=== PATIENT | male | born 1960 | race Caucasian/White ===

== ENCOUNTER 2018-11-16 14:07 | Inpatient (IN) | payer OTHER ==
[2018-11-16] MEDS ORDERED: HEPARIN SODIUM,PORCINE 5,000 UNIT/ML 1 ML VIAL IV PRN (15:05)
[2018-11-16] MEDS ORDERED: HEPARIN SOD,PORK IN 0.45% NACL 25,000 UNIT in 0.45% NACL 1 250ML.BAG IV SCH (15:15)
--- NOTE | 2018-11-16 15:38 | ED ---
General Adult HPI - General Chief complaint: Chest Pain Stated complaint: Chest Pain Time Seen by Provider: 11/16/18 14:40 Source: patient Mode of arrival: EMS Limitations: no limitations - History of Present Illness Initial comments: Dictation was produced using [employer] dictation software. please excuse any grammatical, word or spelling errors. Chief Complaint: Patient is a 58-year-old male transferred from [facility] for NSTEMI. History of Present Illness: Patient is a 58-year-old male. Patient denies any medical history. Patient is transferred from [facility] for an STEMI. Patient had typical chest pain prior to going to the ER. He states it was a pressure-like sensation over his anterior chest. Denied any radiation to the shoulders or neck. Also suggested freezes. Patient has any cardiac history. He went to the emergency department to be evaluated. Labs and neck surgery obtained. Patient had a elevated troponin. EKG did not show any findings to suggest STEMI. Patient denies any shortness of breath. Patient denies any symptoms at this time. The ROS documented in this emergency department record has been reviewed and confirmed by me. Those systems with pertinent positive or negative responses have been documented in the HPI. All other systems are other negative and/or noncontributory. PHYSICAL EXAM: General Impression: Alert and oriented x3, not in acute distress HEENT: Normocephalic atraumatic, extra-ocular movements intact, pupils equal and reactive to light bilaterally, mucous membranes moist. Cardiovascular: Heart regular rate and rhythm, S1&S2 audible, no murmurs, rubs or gallops Chest: Lungs clear to auscultation bilaterally, no rhonchi, no wheeze, no rales Abdomen: Bowel sounds present, abdomen soft, non-tender, non-distended, no organomegaly Musculoskeletal: Pulses present and equal in all extremities, no peripheral edema Motor: Power 5/5 bilaterally, no focal deficits noted Neurological: CN II-XII grossly intact, no focal motor or sensory deficits noted Skin: Intact with no visualized rashes Psych: Normal affect and mood ED course: Old male presents with an STEMI. Labs and chart were reviewed from transferring facility. CBC, coag panel, metabolic panel is unremarkable. Troponin was elevated at 0.25. Chest x-ray is unremarkable. Repeat EKG was performed here showing a ventricular rate of 80, sinus rhythm, VT interval 154, QRS 86, QTC 456. Patient was continued on heparin. Patient did receive aspirin at transferring hospital. No signs of ischemia or MT at this time. Is hemodynamically stable at this time. He is asymptomatic. Patient be admitted with cardiology consultation. - Related Data Home Medications Medication Instructions Recorded Confirmed Losartan/Hydrochlorothiazide 1 tab PO DAILY 11/16/18 11/16/18 [Losartan-Hctz 100-12.5 mg Tab] Allergies Allergy/AdvReac Type Severity Reaction Status Date / Time No Known Allergies Allergy Unverified 11/16/18 15:04 Review of Systems ROS Statement: Those systems with pertinent positive or pertinent negative responses have been documented in the HPI. ROS Other: All systems not noted in ROS Statement are negative. General Exam Limitations: no limitations Course Vital Signs 11/16/18 11/16/18 14:13 15:36 Temperature 98.1 F Pulse Rate 81 75 Respiratory 16 14 Rate Blood Pressure 127/82 124/78 O2 Sat by Pulse 96 Oximetry Disposition Clinical Impression: NSTEMI (non-ST elevated myocardial infarction) Disposition: ADMITTED IP TO THIS HOSP Condition: Fair Referrals: Cherri Land DO [Primary Care Provider] - 1-2 days Decision Time: 15:38
[2018-11-16] MEDS ORDERED: NITROGLYCERIN SL TABS 0.4 MG TAB SUBLINGUAL PRN (15:42)
[2018-11-16] MEDS: METOPROLOL TARTRATE 25 MG TAB PO SCH (20:05)
[2018-11-17 00:50] LABS: Creatine Kinase MB 14.6 ng/mL (0.0-2.4)
[2018-11-17 00:53] LABS: Troponin I 4.25 ng/mL (0.000-0.034)
[2018-11-17 06:19] LABS: Basophils % (A) 0 %; Eosinophils # (A) 0.1 k/uL (0-0.7); Eosinophils % (A) 5 %; HCT 29.8 % (39.0-53.0); HGB 9.1 gm/dL (13.0-17.5); Hypochromasia Slight; Lymphocytes % (A) 42 %; MCH 30.3 pg (25.0-35.0); MCHC 30.4 g/dL (31.0-37.0); MCV 99.5 fL (80.0-100.0); Macrocytosis Slight; Monocytes # (A) 0.2 k/uL (0-1.0); Monocytes % (A) 9 %; Neutrophils % (A) 40 %; Platelet Count 259 k/uL (150-450); RBC 2.99 m/uL (4.30-5.90); RDW 15.9 % (11.5-15.5); WBC 2.4 k/uL (3.8-10.6)
[2018-11-17 06:20] LABS: Cholesterol 119 mg/dL (<200); HDL Cholesterol 40 mg/dL (40-60); LDL Cholesterol,Calculated 62 mg/dL (0-99); Triglycerides 84 mg/dL (<150)
[2018-11-17 06:21] LABS: ALT 26 U/L (21-72); AST 32 U/L (17-59); Albumin 3.2 g/dL (3.5-5.0); Alkaline Phosphatase 90 U/L (38-126); Anion Gap 5 mmol/L; Blood Urea Nitrogen 8 mg/dL (9-20); Calcium 9.3 mg/dL (8.4-10.2); Carbon Dioxide 26 mmol/L (22-30); Chloride 106 mmol/L (98-107); Glucose 95 mg/dL (74-99); Potassium 4.2 mmol/L (3.5-5.1); Sodium 137 mmol/L (137-145); Total Bilirubin 0.4 mg/dL (0.2-1.3); Total Protein 5.8 g/dL (6.3-8.2)
[2018-11-17 06:41] LABS: Creatine Kinase MB 10.5 ng/mL (0.0-2.4)
[2018-11-17 06:42] LABS: Troponin I 2.37 ng/mL (0.000-0.034)
--- NOTE | 2018-11-17 07:58 | P.CRDCN ---
History of Present Illness Consult date: 11/17/18 Requesting physician: Edy Santana Consult reason: non-Q-wave [place] Chief complaint: Chest pain History of present illness: This is a pleasant 58-year-old gentleman with history of hypertension , family history of premature coronary artery disease in his father who had a myocardial infarction in his 50s, nicotine dependence, presented to her [facility] hospital with symptoms of chest discomfort. According to the patient he woke up around 4:30 AM to get ready for work, states that he had midsternal chest pain, he denies any associated diaphoresis, no shortness of breath or nausea. He states that he did go to work, however the symptoms progressively got worse and for this reason he went to [facility] for further evaluation and treatment. EKG on presentation here showed a normal sinus rhythm with no acute changes. Chest x-ray did not reveal any acute process. Laboratory data performed at [facility] was reviewed, white blood cell count 3.2, hemoglobin 9.7, platelet count 311. Sodium 135, potassium 3.9, chloride 101, BUN 10 and creatinine 0.6 AST ALT are normal, magnesium 1.9. Initial troponin performed [facility] came back to be 0.25 BNP level was 66. EKG performed on arrival here showed a normal sinus rhythm with occasional PVCs, and subsequent EKG performed this morning showed normal sinus rhythm with nonspecific ST-T wave changes noted in the inferior leads. Blood pressure 127/80, heart rate in the 80s, 96% on room air. White blood cell count 2.4, hemoglobin 9.1, platelet count 259. Sodium 137, potassium 4.2, BUN 8 and creatinine 0.5. Troponins on arrival here 3.4, 4.2 and 2.3. Cholesterol 119, LDL 62, HDL 40, triglycerides 84. At the time of my examination this morning patient is currently chest pain-free. He is on a full aspirin along with IV heparin and metoprolol. Past Medical History Past Medical History: Hyperlipidemia, Hypertension History of Any Multi-Drug Resistant Organisms: None Reported Additional Past Surgical History / Comment(s): vasectomy, mt cataracats removed -lens implants, rt cheek cyst removed x2 Past Anesthesia/Blood Transfusion Reactions: No Reported Reaction Additional Past Anesthesia/Blood Transfusion Reaction / Comment(s): has never recieved any blood Smoking Status: Current every day smoker - Past Family History Mother Additional Family Medical History / Comment(s): from complications from pne Father Family Medical History: Coronary Artery Disease (CAD), Myocardial Infarction ([place] ) Additional Family Medical History / Comment(s): triple vessel cabg Medications and Allergies Home Medications Medication Instructions Recorded Confirmed Type Losartan/Hydrochlorothiazide 1 tab PO DAILY 11/16/18 11/16/18 History [Losartan-Hctz 100-12.5 mg Tab] Allergies Allergy/AdvReac Type Severity Reaction Status Date / Time No Known Allergies Allergy Unverified 11/16/18 15:04 Physical Exam Vitals: Vital Signs Temp Pulse Pulse Resp BP BP Pulse Ox 11/17/18 03:53 97.3 F L 74 15 113/60 98 11/17/18 00:00 97.4 F L 66 16 122/62 100 11/16/18 20:00 97.1 F L 73 17 110/61 96 11/16/18 18:28 98.1 F 68 20 134/77 96 11/16/18 18:02 80 16 121/66 11/16/18 15:42 96 11/16/18 15:36 75 14 124/78 96 11/16/18 14:13 98.1 F 81 16 127/82 Intake and Output 11/16/18 11/17/18 11/17/18 22:59 06:59 14:59 Intake Total 17.6 629.511 Balance 17.6 629.511 Intake: IV 10 20 Invasive Line 1 10 20 Intake, IV Titration 7.6 129.511 Amount Heparin Sod,Pork in 0.45% 7.6 129.511 NaCl 25,000 unit In 0.45 % NaCl 1 250ml.bag @ 12 UNITS/KG/HR 7.89 mls/hr IV .Q24H [facility] Rx#: [id number] Oral 480 Other: Voiding Method Toilet Toilet # Voids 2 Weight 60.4 kg PHYSICAL EXAMINATION: GENERAL: 58-year-old gentleman in no acute distress at the time of my examination HEENT: Head is atraumatic, normocephalic. Pupils equal, round. Sclera anicteric. Conjunctiva are clear. Mucous membranes of the mouth are moist. Neck is supple. There is no elevated jugular venous pressure. No carotid bruit is heard. HEART EXAMINATION: Heart S1, S2 normal. No murmur or gallop heard. CHEST EXAMINATION: Lungs reveal scattered wheezing throughout ABDOMEN: Soft, nontender. Bowel sounds are heard. No organomegaly noted. EXTREMITIES: 2+ peripheral pulses with no evidence of peripheral edema and no calf tenderness noted. NEUROLOGIC patient is awake, alert and oriented 3 . . Results 11/17/18 05:47 11/17/18 05:47 Cardiac Enzymes 11/16/18 11/16/18 11/17/18 Range/Units 18:26 23:50 05:47 AST (17-59) U/L CK-MB (CK-2) 14.6 H 10.5 H (0.0-2.4) ng/mL Troponin I 3.470 H* 4.250 H* 2.370 H* (0.000-0.034) ng/mL 11/17/18 Range/Units 05:47 AST 32 (17-59) U/L CK-MB (CK-2) (0.0-2.4) ng/mL Troponin I (0.000-0.034) ng/mL Coagulation 11/16/18 11/17/18 Range/Units 22:35 05:47 APTT 31.7 H 34.6 H (22.0-30.0) sec Lipids 11/17/18 Range/Units 05:47 Triglycerides 84 (<150) mg/dL Cholesterol 119 (<200) mg/dL HDL Cholesterol 40 (40-60) mg/dL CBC 11/17/18 Range/Units 05:47 WBC 2.4 L (3.8-10.6) k/uL RBC 2.99 L (4.30-5.90) m/uL Hgb 9.1 L (13.0-17.5) gm/dL Hct 29.8 L (39.0-53.0) % Plt Count 259 (150-450) k/uL Comprehensive Metabolic Panel 11/17/18 Range/Units 05:47 Sodium 137 (137-145) mmol/L Potassium 4.2 (3.5-5.1) mmol/L Chloride 106 (98-107) mmol/L Carbon Dioxide 26 (22-30) mmol/L BUN 8 L (9-20) mg/dL Creatinine 0.59 L (0.66-1.25) mg/dL Glucose 95 (74-99) mg/dL Calcium 9.3 (8.4-10.2) mg/dL AST 32 (17-59) U/L ALT 26 (21-72) U/L Alkaline Phosphatase 90 (38-126) U/L Total Protein 5.8 L (6.3-8.2) g/dL Albumin 3.2 L (3.5-5.0) g/dL Current Medications Generic Name Dose Route Start Last Admin Trade Name Chun PRN Reason Stop Dose Admin Aspirin 325 mg 11/17/18 09:00 Aspirin PO DAILY [facility] Heparin Sodium (Porcine) 0 unit 11/16/18 15:05 Heparin IV PER PROTOCOL PRN Low PTT Protocol Heparin Sodium/Sodium Chloride 250 mls @ 7.89 mls/hr 11/16/18 15:15 11/17/18 06:52 25,000 unit/ Sodium Chloride IV 18 units/kg/hr .Q24H [facility] 11.83 mls/hr Titration Protocol 12 UNITS/KG/HR Metoprolol Tartrate 25 mg 11/16/18 21:00 11/16/18 20:05 Lopressor PO 25 mg BID [facility] Administration Nitroglycerin 0.4 mg 11/16/18 15:42 Nitrostat SUBLINGUAL Q5M PRN Chest Pain Intake and Output 11/16/18 11/17/18 11/17/18 22:59 06:59 14:59 Intake Total 17.6 629.511 Balance 17.6 629.511 Intake: IV 10 20 Invasive Line 1 10 20 Intake, IV Titration 7.6 129.511 Amount Heparin Sod,Pork in 0.45% 7.6 129.511 NaCl 25,000 unit In 0.45 % NaCl 1 250ml.bag @ 12 UNITS/KG/HR 7.89 mls/hr IV .Q24H [facility] Rx#: [id number] Oral 480 Other: Voiding Method Toilet Toilet # Voids 2 Weight 60.4 kg 11/17/18 05:47 11/17/18 05:47 EKG Interpretations (text) EKG shows normal sinus rhythm with no acute changes. Assessment and Plan Plan: Assessment and plan #1 non-ST elevation GA #2 hypertension #3 nicotine dependence #4 family history of premature coronary artery disease in his father Plan We will obtain a stat echocardiogram with Doppler study. Continue with IV heparin. We will start the patient on Lipitor. He has been advised that he will need to undergo cardiac catheterization for more definitive diagnosis. The risks and benefits were explained to the patient in detail and he is willing to proceed. Further recommendations will be based on these findings and the patient's clinical course. DNP note has been reviewed, I agree with a documented findings and plan of care. Patient was seen and examined.
[2018-11-17] MEDS: METOPROLOL TARTRATE 25 MG TAB PO SCH ×2 (08:29→20:59)
[2018-11-17] MEDS: ATORVASTATIN 80 MG TAB PO SCH (08:29)
[2018-11-17] MEDS ORDERED: ASPIRIN 325 MG TAB PO SCH (09:00)
--- NOTE | 2018-11-17 12:57 | ECHOF ---
Referral Reason:assess lvf MEASUREMENTS -------- HEIGHT: 170.2 cm WEIGHT: 60.3 kg BP: RVIDd: 3.1 cm (< 3.3) IVSd: 1.0 cm (0.6 - 1.1) LVIDd: 4.0 cm (3.9 - 5.3) LVPWd: 1.0 cm (0.6 - 1.1) IVSs: 1.4 cm LVIDs: 2.9 cm LVPWs: 1.5 cm LA Diam: 3.5 cm (2.7 - 3.8) LAESV Index (A-L): 23.10 ml/m Ao Diam: 3.5 cm (2.0 - 3.7) AV Cusp: 1.5 cm (1.5 - 2.6) LA Diam: 3.7 cm (2.7 - 3.8) MV EXCURSION: 23.254 mm (> 18.000) MV EF SLOPE: 117 mm/s (70 - 150) EPSS: 0.3 cm MV E Rey: 0.68 m/s MV DecT: 213 ms MV A Rey: 0.87 m/s MV E/A Ratio: 0.78 RAP: 5.00 mmHg RVSP: 19.13 mmHg FINDINGS -------- Sinus rhythm. This was a technically good study. LV size, wall thickness and systolic function are normal, with an EF greater than 55%. The left tadeo tricular size is normal. The right ventricle is normal in size. The left atrial size is normal. Normal LA size by volume 22+/-6 ml/m2. The right atrial size is normal. There is mild aortic valve sclerosis. There is no evidence of aortic regurgitation. Mild mitral annular calcification present. Mild mitral regurgitation is present. Mild tricuspid regurgitation present. There is no evidence of pulmonary hypertension. The right v entricular systolic pressure, as measured by Doppler, is 19.13mmHg. There is no pulmonic regurgitation present. The aortic root size is normal. There is no pericardial effusion. CONCLUSIONS -------- 1. LV size, wall thickness and systolic function are normal, with an EF greater than 55%. 2. The left ventricular size is normal. 3. The right ventricle is normal in size. 4. The left atrial size is normal. 5. Normal LA size by volume 22+/-6 ml/m2. 6. The right atrial size is normal. 7. There is mild aortic valve sclerosis. 8. Mild mitral annular calcification present. 9. Mild tricuspid regurgitation present. 10. There is no evidence of pulmonary hypertension. 11. The right ventricular systolic pressure, as measured by Doppler, is 19.13mmHg. 12. There is no pulmonic regurgitation present. 13. The aortic root size is normal. 14. There is no pericardial effusion. SHOW HORSE DRIVER: Merlyn Box RDCS
[2018-11-17] MEDS ORDERED: fentaNYL (PF) 50 MCG/ML 2 ML AMP ONE (13:11)
[2018-11-17] MEDS ORDERED: VERAPAMIL 2.5 MG/ML 2 ML AMP ONE (13:11)
[2018-11-17] MEDS ORDERED: IV FLUID CONTINUATION 1,000 ML IV ONE (13:25)
[2018-11-17] MEDS ORDERED: fentaNYL (PF) 50 MCG/ML 2 ML AMP IV ONE (13:50)
[2018-11-17] MEDS ORDERED: LIDOCAINE 2% SYG (PF) 100 MG/5 ML MISCELLANE ONE (13:52)
[2018-11-17] MEDS ORDERED: VERAPAMIL SYRINGE (5 MG/10 ML) INTRAARTER ONE (13:54)
--- NOTE | 2018-11-17 13:56 | P.HPIM ---
History of Present Illness 58-year-old gentleman came in with compensative chest pain without any associated diaphoresis or shortness of breath patient just pain is midsternal area. Patient was seen in [facility] subsequently transferred here patient is found to have elevated troponins present elevated troponins are above 3 now. Patient will go for cardiac catheterization patient has some nonspecific ST-T wave changes in the inferior leads. Patient denied any fever chills Patient does smoke. Chest x-ray did not show any pneumonic process. No pulmonary edema on the chest x-ray. Review of Systems REVIEW OF SYSTEMS: CONSTITUTIONAL: No fever, no malaise, no fatigue. HEENT: No recent visual problems or hearing problems. Denied any sore throat. CARDIOVASCULAR: No orthopnea, PND, no palpitations, no syncope. PULMONARY: No shortness of breath, no cough, no hemoptysis. GASTROINTESTINAL: No diarrhea, no nausea, no vomiting, no abdominal pain. NEUROLOGICAL: No headaches, no weakness, no numbness. HEMATOLOGICAL: Denies any bleeding or petechiae. GENITOURINARY: Denies any burning micturition, frequency, or urgency. MUSCULOSKELETAL/RHEUMATOLOGICAL: Denies any joint pain, swelling, or any muscle pain. ENDOCRINE: Denies any polyuria or polydipsia. The rest of the 14-point review of systems is negative. Past Medical History Past Medical History: Hyperlipidemia, Hypertension History of Any Multi-Drug Resistant Organisms: None Reported Additional Past Surgical History / Comment(s): vasectomy, mt cataracats removed -lens implants, rt cheek cyst removed x2 Past Anesthesia/Blood Transfusion Reactions: No Reported Reaction Additional Past Anesthesia/Blood Transfusion Reaction / Comment(s): has never recieved any blood Smoking Status: Current every day smoker - Past Family History Mother Additional Family Medical History / Comment(s): from complications from pne Father Family Medical History: Coronary Artery Disease (CAD), Myocardial Infarction ([place] ) Additional Family Medical History / Comment(s): triple vessel cabg Medications and Allergies Home Medications Medication Instructions Recorded Confirmed Type Losartan/Hydrochlorothiazide 1 tab PO DAILY 11/16/18 11/16/18 History [Losartan-Hctz 100-12.5 mg Tab] Allergies Allergy/AdvReac Type Severity Reaction Status Date / Time No Known Allergies Allergy Unverified 11/16/18 15:04 Physical Exam Vitals: Vital Signs Temp Pulse Pulse Resp BP BP Pulse Ox 11/17/18 10:55 98.0 F 64 18 121/61 96 11/17/18 08:00 97.9 F 68 18 131/71 95 11/17/18 03:53 97.3 F L 74 15 113/60 98 11/17/18 00:00 97.4 F L 66 16 122/62 100 11/16/18 20:00 97.1 F L 73 17 110/61 96 11/16/18 18:28 98.1 F 68 20 134/77 96 11/16/18 18:02 80 16 121/66 11/16/18 15:42 96 11/16/18 15:36 75 14 124/78 96 11/16/18 14:13 98.1 F 81 16 127/82 Intake and Output 11/16/18 11/17/18 11/17/18 22:59 06:59 14:59 Intake Total 17.6 629.511 20 Balance 17.6 629.511 20 Intake: IV 10 20 Invasive Line 1 10 20 Intake, IV Titration 7.6 129.511 Amount Heparin Sod,Pork in 0.45% 7.6 129.511 NaCl 25,000 unit In 0.45 % NaCl 1 250ml.bag @ 12 UNITS/KG/HR 7.89 mls/hr IV .Q24H [facility] Rx#: [id number] Oral 480 20 Other: Voiding Method Toilet Toilet # Voids 2 1 Weight 60.4 kg PHYSICAL EXAMINATION: GENERAL: The patient is alert and oriented x3, not in any acute distress. Well developed, well nourished. HEENT: Pupils are round and equally reacting to light. EOMI. No scleral icterus. No conjunctival pallor. Normocephalic, atraumatic. No pharyngeal erythema. No thyromegaly. CARDIOVASCULAR: S1 and S2 present. No murmurs, rubs, or gallops. PULMONARY: Chest is clear to auscultation, no wheezing or crackles. ABDOMEN: Soft, nontender, nondistended, normoactive bowel sounds. No palpable organomegaly. MUSCULOSKELETAL: No joint swelling or deformity. EXTREMITIES: No cyanosis, clubbing, or pedal edema. NEUROLOGICAL: Gross neurological examination did not reveal any focal deficits. SKIN: No rashes. Results CBC & Chem 7: 11/17/18 05:47 11/17/18 05:47 Labs: Abnormal Lab Results - Last 24 Hours (Table) 11/16/18 11/16/18 11/16/18 Range/Units 18:26 22:35 23:50 WBC (3.8-10.6) k/uL RBC (4.30-5.90) m/uL Hgb (13.0-17.5) gm/dL Hct (39.0-53.0) % MCHC (31.0-37.0) g/dL RDW (11.5-15.5) % Neutrophils # (1.3-7.7) k/uL APTT 31.7 H (22.0-30.0) sec BUN (9-20) mg/dL Creatinine (0.66-1.25) mg/dL Total Creatine Kinase 223 H (55-170) U/L CK-MB (CK-2) 14.6 H (0.0-2.4) ng/mL Troponin I 3.470 H* 4.250 H* (0.000-0.034) ng/mL Total Protein (6.3-8.2) g/dL Albumin (3.5-5.0) g/dL 11/17/18 11/17/18 11/17/18 Range/Units 05:47 05:47 05:47 WBC 2.4 L (3.8-10.6) k/uL RBC 2.99 L (4.30-5.90) m/uL Hgb 9.1 L (13.0-17.5) gm/dL Hct 29.8 L (39.0-53.0) % MCHC 30.4 L (31.0-37.0) g/dL RDW 15.9 H (11.5-15.5) % Neutrophils # 1.0 L (1.3-7.7) k/uL APTT 34.6 H (22.0-30.0) sec BUN (9-20) mg/dL Creatinine (0.66-1.25) mg/dL Total Creatine Kinase 195 H (55-170) U/L CK-MB (CK-2) 10.5 H (0.0-2.4) ng/mL Troponin I 2.370 H* (0.000-0.034) ng/mL Total Protein (6.3-8.2) g/dL Albumin (3.5-5.0) g/dL 11/17/18 11/17/18 Range/Units 05:47 12:58 WBC (3.8-10.6) k/uL RBC (4.30-5.90) m/uL Hgb (13.0-17.5) gm/dL Hct (39.0-53.0) % MCHC (31.0-37.0) g/dL RDW (11.5-15.5) % Neutrophils # (1.3-7.7) k/uL APTT 42.0 H (22.0-30.0) sec BUN 8 L (9-20) mg/dL Creatinine 0.59 L (0.66-1.25) mg/dL Total Creatine Kinase (55-170) U/L CK-MB (CK-2) (0.0-2.4) ng/mL Troponin I (0.000-0.034) ng/mL Total Protein 5.8 L (6.3-8.2) g/dL Albumin 3.2 L (3.5-5.0) g/dL Thrombosis Risk Factor Assmnt - Choose All That Apply Any of the Below Risk Factors Present?: No Other Risk Factors: No Thrombosis Risk Factor Assessment Level: Very Low Risk Assessment and Plan Plan: -Acute non-ST elevation myocardial infarction: Patient is on IV heparin antiplatelet therapy beta jonh and patient will undergo cardiac catheterization today patient is also on statin. Echocardiac showed normal ejection fraction, clinically no evidence of CHF at this time -Hypertension: Holding off antidepressants medications because of normal blood pressures -Nicotine dependence: Counseling was provided
[2018-11-17] MEDS ORDERED: IOPAMIDOL-370 100ML BTL INJ ONE (14:08)
[2018-11-17] MEDS ORDERED: RX INFO: IV CONTRAST WAS GIVEN 1 EACH MISC MISCELLANE PRN (14:20)
[2018-11-17] MEDS ORDERED: SODIUM CHLORIDE 0.9% 1,000 ML IV SCH (14:30)
[2018-11-17] MEDS ORDERED: MD COMMUNICATION TO PHARMACY 1 EACH MISC PO ONE ×2 (14:44)
[2018-11-17 15:06] LABS: INR 1.1 (<1.2); Prothrombin Time 11.8 sec (9.0-12.0)
[2018-11-17 15:19] LABS: Glucose,Whole Blood 96 mg/dL (75-99)
[2018-11-17] MEDS: HEPARIN SOD,PORK IN 0.45% NACL 25,000 UNIT in 0.45% NACL 1 250ML.BAG IV SCH (15:22)
--- NOTE | 2018-11-17 15:46 | CC ---
CARDIAC CATHETERIZATION REPORT Mr. Acosta is a 58-year-old male known history of chronic tobacco use and hypertension, who presented to [facility] with symptoms of chest discomfort and evidence of non ST-segment elevation myocardial infarction. In view of that, recommendation made regarding cardiac catheterization. The procedures as well as risks and complications were discussed with the patient who is in full understanding and agreement. DESCRIPTION OF PROCEDURE: Patient was brought to pathology laboratory director in a fasting state after receiving fentanyl and Benadryl and achieving moderate conscious sedated state. Using Xylocaine anesthesia in the Seldinger technique a 6-Egyptian sheath was introduced in the right radial artery. Selective right and left coronary angiography was performed using 5-Egyptian 3 and half bend right and left Nunu catheter. Multiple views of the coronary artery including hemiaxial views obtained. Following that, 5-Egyptian tight pigtail catheter was introduced in the left ventricle and a 30 degree ANGELA view of the left ventricle was obtained. Following that, catheter and sheath were removed. Hemostasis was obtained with deployment of TR band. There was no immediate complication. Patient was returned to his room in stable condition. Of note, the patient received 3000 units of intravenous heparin as well as intra-arterial verapamil. FINDINGS: FLUOROSCOPY: There was severe calcification involving all the coronary arteries. SELECTIVE CORONARY ANGIOGRAM: 1. LEFT MAIN: This is a short size vessel bifurcating into left circumflex, left anterior descending artery, left main coronary artery has a 95% stenosis distally at the bifurcation. 2. LEFT ANTERIOR DESCENDING ARTERY: This is a large-sized vessel reaching toward the apex with a wraparound apex segment giving rise to a diagonal branch proximally of moderate caliber. The left anterior descending artery proximally has a plaque of 95% extending from the left main. The rest of the vessel has no high-grade stenosis. 3. LEFT CIRCUMFLEX: This is a nondominant vessel giving rise to one obtuse marginal branch proximally. The left circumflex in the ostium has 99% stenosis. There is another plaque in the obtuse marginal branch of about 80-90 percent. 4. RIGHT CORONARY ARTERY: This is a large dominant vessel bifurcating distally into the PDA posterolateral segment and branches. The right coronary artery proximally has a 99% stenosis, has diffuse intimal disease throughout the course of the vessel without any evidence of high-grade stenosis. LEFT VENTRICULOGRAM: Left ventriculogram was performed in 30 degree ANGELA view and revealed normal left ventricular size with mild apical hypokinesis ejection fraction 50%. There was no significant mitral regurgitation. HEMODYNAMICS: There was no gradient across the aortic valve. The left ventricle end-diastolic pressure was 10 mmHg. CONCLUSION: 1. Calcified coronary arteries. 2. 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 3. Normal left ventricular size systolic function. RECOMMENDATIONS: At this time, I would recommend to proceed with evaluation for urgent coronary artery bypass grafting in view of his anatomy and his presentation. Those findings and recommendations were discussed with the patient and his family who are in full understanding and agreement. Duration of procedure is 20 minutes. MMODL / IJN: [id number] /
--- NOTE | 2018-11-17 16:46 | P.GSCN ---
<Urmila Jones - Last Filed: 11/17/18 16:21> History of Present Illness Consult date: 11/17/18 Reason for Consult: Triple-vessel coronary artery disease with left main disease, surgical revascularization recommendations Requesting physician: Harsha Dominguez History of present illness: This is a 58-year-old active gentleman who follows with Dr. Cherri Land on an outpatient basis. He has a previous medical history of hypertension, hyperlipidemia, tobacco dependence as he has smoked 1 pack a day for the previous 40 years, and family history of early coronary artery disease with his father having open heart surgery in his 50s. Apparently as he was getting ready for work and he began to experience sharp midsternal chest pain without radiation. He had no associated shortness of breath, diaphoresis, nausea, dizziness or any other symptoms. His exertional chest pain was eventually relieved with rest. He stated he never had this type of pain before. He presented to [facility] for evaluation and treatment. EKG showed normal sinus rhythm without acute ischemic changes. Troponin was mildly elevated at 0.25, patient was ruled in for non-STEMI and transported to [facility] for further management. Subsequent EKG demonstrated normal sinus rhythm with nonspecific STT wave changes in the inferior leads. Troponins continued to elevate with max troponin 4.2. Patient has denied chest pain since hospitalization. Dr. Dominguez from cardiology was consulted. The patient had a transthoracic echocardiogram demonstrating normal left ventricular function with an EF 55%, mild mitral annular calcification and mild tricuspid regurgitation with no other valvular pathology. He was recommended to undergo heart catheterization which was completed this afternoon by Dr. Dominguez and which demonstrated left main with 95% distal stenosis at the bifurcation, proximal LAD stenosis 95% extending from the left main, ostial circumflex stenosis 99%, obtuse marginal branch with 80-90% stenosis, and proximal RCA stenosis 99%. LV gram demonstrated normal LV size with ejection fraction of 50% , no gradient across the aortic valve and no mitral regurgitation. Due to the nature of the patient's disease Dr. Cast from cardiothoracic surgery was consulted urgently. Review of Systems Review of systems was completed and was negative except as noted - Cardiovascular Reports chest pain Past Medical History Past Medical History: Hyperlipidemia, Hypertension History of Any Multi-Drug Resistant Organisms: None Reported Additional Past Surgical History / Comment(s): vasectomy, mt cataracats removed -lens implants, rt cheek cyst removed x2 Past Anesthesia/Blood Transfusion Reactions: No Reported Reaction Additional Past Anesthesia/Blood Transfusion Reaction / Comm: has never recieved any blood Past Psychological History: No Psychological Hx Reported Smoking Status: Current every day smoker Past Alcohol Use History: Rare Past Drug Use History: None Reported - Past Family History Mother Additional Family Medical History / Comment(s): from complications from pne Father Family Medical History: Coronary Artery Disease (CAD), Myocardial Infarction ([place] ) Additional Family Medical History / Comment(s): triple vessel cabg Medications and Allergies Home Medications Medication Instructions Recorded Confirmed Type Losartan/Hydrochlorothiazide 1 tab PO DAILY 11/16/18 11/16/18 History [Losartan-Hctz 100-12.5 mg Tab] Allergies Allergy/AdvReac Type Severity Reaction Status Date / Time No Known Allergies Allergy Unverified 11/16/18 15:04 Surgical - Exam Vital Signs Temp Pulse Resp BP 98.1 F 81 16 127/82 11/16/18 14:13 11/16/18 14:13 11/16/18 14:13 11/16/18 14:13 - General well developed, well nourished, no distress, no pain - Eyes PERRL, normal ocular movement - ENT no hearing loss - Neck no masses, no bruits, trachea midline - Respiratory Lungs sounds clear but diminished bilaterally. Respirations even, nonlabored. Currently on room air with oxygen saturation 94%. No chest wall deformities. - Cardiovascular S1, S2 present. Regular rate and rhythm, sinus rhythm on telemetry. Palpable peripheral pulses bilaterally. No edema present. No calf pain or tenderness noted. Negative left radial Robb's test. No varicosities noted. - Abdomen Abdomen: soft, non tender, bowel sounds - Genitourinary Deferred - Rectum Deferred - Integumentary Right radial heart catheterization site well approximated without drainage. T band in place. no rash, no growths - Neurologic normal coordination, normal sensation - Musculoskeletal normal posture - Psychiatric oriented to time, oriented to person, oriented to place, speech is normal, memory intact Results - Labs 11/17/18 05:47 11/17/18 05:47 Abnormal Lab Results - Last 24 Hours (Table) 11/16/18 11/16/18 11/16/18 Range/Units 18:26 22:35 23:50 WBC (3.8-10.6) k/uL RBC (4.30-5.90) m/uL Hgb (13.0-17.5) gm/dL Hct (39.0-53.0) % MCHC (31.0-37.0) g/dL RDW (11.5-15.5) % Neutrophils # (1.3-7.7) k/uL APTT 31.7 H (22.0-30.0) sec BUN (9-20) mg/dL Creatinine (0.66-1.25) mg/dL Total Creatine Kinase 223 H (55-170) U/L CK-MB (CK-2) 14.6 H (0.0-2.4) ng/mL Troponin I 3.470 H* 4.250 H* (0.000-0.034) ng/mL Total Protein (6.3-8.2) g/dL Albumin (3.5-5.0) g/dL 11/17/18 11/17/18 11/17/18 Range/Units 05:47 05:47 05:47 WBC 2.4 L (3.8-10.6) k/uL RBC 2.99 L (4.30-5.90) m/uL Hgb 9.1 L (13.0-17.5) gm/dL Hct 29.8 L (39.0-53.0) % MCHC 30.4 L (31.0-37.0) g/dL RDW 15.9 H (11.5-15.5) % Neutrophils # 1.0 L (1.3-7.7) k/uL APTT 34.6 H (22.0-30.0) sec BUN (9-20) mg/dL Creatinine (0.66-1.25) mg/dL Total Creatine Kinase 195 H (55-170) U/L CK-MB (CK-2) 10.5 H (0.0-2.4) ng/mL Troponin I 2.370 H* (0.000-0.034) ng/mL Total Protein (6.3-8.2) g/dL Albumin (3.5-5.0) g/dL 11/17/18 11/17/18 Range/Units 05:47 12:58 WBC (3.8-10.6) k/uL RBC (4.30-5.90) m/uL Hgb (13.0-17.5) gm/dL Hct (39.0-53.0) % MCHC (31.0-37.0) g/dL RDW (11.5-15.5) % Neutrophils # (1.3-7.7) k/uL APTT 42.0 H (22.0-30.0) sec BUN 8 L (9-20) mg/dL Creatinine 0.59 L (0.66-1.25) mg/dL Total Creatine Kinase (55-170) U/L CK-MB (CK-2) (0.0-2.4) ng/mL Troponin I (0.000-0.034) ng/mL Total Protein 5.8 L (6.3-8.2) g/dL Albumin 3.2 L (3.5-5.0) g/dL Diabetes panel 11/17/18 11/17/18 Range/Units 05:47 05:47 Sodium 137 (137-145) mmol/L Potassium 4.2 (3.5-5.1) mmol/L Chloride 106 (98-107) mmol/L Carbon Dioxide 26 (22-30) mmol/L BUN 8 L (9-20) mg/dL Creatinine 0.59 L (0.66-1.25) mg/dL Glucose 95 (74-99) mg/dL Calcium 9.3 (8.4-10.2) mg/dL AST 32 (17-59) U/L ALT 26 (21-72) U/L Alkaline Phosphatase 90 (38-126) U/L Total Protein 5.8 L (6.3-8.2) g/dL Albumin 3.2 L (3.5-5.0) g/dL Triglycerides 84 (<150) mg/dL HDL Cholesterol 40 (40-60) mg/dL Thyroid panel 11/17/18 Range/Units 05:47 TSH 1.650 (0.465-4.680) mIU/L Calcium panel 11/17/18 Range/Units 05:47 Calcium 9.3 (8.4-10.2) mg/dL Albumin 3.2 L (3.5-5.0) g/dL Pituitary panel 11/17/18 11/17/18 Range/Units 05:47 05:47 Sodium 137 (137-145) mmol/L Potassium 4.2 (3.5-5.1) mmol/L Chloride 106 (98-107) mmol/L Carbon Dioxide 26 (22-30) mmol/L BUN 8 L (9-20) mg/dL Creatinine 0.59 L (0.66-1.25) mg/dL Glucose 95 (74-99) mg/dL Calcium 9.3 (8.4-10.2) mg/dL TSH 1.650 (0.465-4.680) mIU/L Adrenal panel 11/17/18 Range/Units 05:47 Sodium 137 (137-145) mmol/L Potassium 4.2 (3.5-5.1) mmol/L Chloride 106 (98-107) mmol/L Carbon Dioxide 26 (22-30) mmol/L BUN 8 L (9-20) mg/dL Creatinine 0.59 L (0.66-1.25) mg/dL Glucose 95 (74-99) mg/dL Calcium 9.3 (8.4-10.2) mg/dL Total Bilirubin 0.4 (0.2-1.3) mg/dL AST 32 (17-59) U/L ALT 26 (21-72) U/L Alkaline Phosphatase 90 (38-126) U/L Total Protein 5.8 L (6.3-8.2) g/dL Albumin 3.2 L (3.5-5.0) g/dL - Imaging EKG: image reviewed Additional studies: Heart catheterization and echocardiogram results reviewed. Assessment and Plan (1) Hypertension Current Visit: Yes Status: Chronic Code(s): I10 - ESSENTIAL (PRIMARY) HYPERTENSION SNOMED Code(s): 30494651 (2) Hyperlipidemia Current Visit: Yes Status: Chronic Code(s): E78.5 - HYPERLIPIDEMIA, UNSPECIFIED SNOMED Code(s): 94428150 (3) Tobacco dependence Current Visit: Yes Status: Chronic Code(s): F17.200 - NICOTINE DEPENDENCE, UNSPECIFIED, UNCOMPLICATED SNOMED Code(s): 97969254 (4) Family history of early CAD Current Visit: Yes Status: Chronic Code(s): Z82.49 - FAMILY HX OF ISCHEM HEART DIS AND OTH DIS OF THE CIRC SYS SNOMED Code(s): 941138837 (5) NSTEMI (non-ST elevated myocardial infarction) Current Visit: Yes Status: Acute Code(s): I21.4 - NON-ST ELEVATION (NSTEMI) MYOCARDIAL INFARCTION SNOMED Code(s): 96988787 Plan: The patient was seen and examined in the lab engineer with Dr. Cast. Chart/ diagnostics were reviewed. Heart catheterization films were reviewed between Dr. Cast and Dr. Dominguez. We offered urgent coronary artery bypass graft surgery to the patient. The usual perioperative course was discussed in detail with the patient and his . Risks and benefits were explained, all questions were answered. The patient did consent to surgery. Preoperative testing was ordered. Patient should be maintained on medical therapy with aspirin, statin, beta john. Dr. Medina will take the patient for urgent coronary artery bypass graft surgery tomorrow, 11/18/2018 with plans for left internal mammary artery harvest, possible but unlikely right internal mammary artery harvest, left radial artery harvest, and endoscopic vein harvest. This was discussed with the patient and his as well as Dr. Dominguez and all are agreeable. More recommendations as patient progresses. Thank you Dr. Dominguez for this consult. We look forward to working with you in the care of your patient. Time with Patient: Greater than 30 <Harpreet Medina - Last Filed: 11/17/18 18:01> Surgical - Exam Vital Signs Temp Pulse Resp BP 98.1 F 81 16 127/82 11/16/18 14:13 11/16/18 14:13 11/16/18 14:13 11/16/18 14:13 Results - Labs 11/17/18 05:47 11/17/18 05:47 Abnormal Lab Results - Last 24 Hours (Table) 11/16/18 11/16/18 11/16/18 Range/Units 18:26 22:35 23:50 WBC (3.8-10.6) k/uL RBC (4.30-5.90) m/uL Hgb (13.0-17.5) gm/dL Hct (39.0-53.0) % MCHC (31.0-37.0) g/dL RDW (11.5-15.5) % Neutrophils # (1.3-7.7) k/uL APTT 31.7 H (22.0-30.0) sec BUN (9-20) mg/dL Creatinine (0.66-1.25) mg/dL Total Creatine Kinase 223 H (55-170) U/L CK-MB (CK-2) 14.6 H (0.0-2.4) ng/mL Troponin I 3.470 H* 4.250 H* (0.000-0.034) ng/mL Total Protein (6.3-8.2) g/dL Albumin (3.5-5.0) g/dL 11/17/18 11/17/18 11/17/18 Range/Units 05:47 05:47 05:47 WBC 2.4 L (3.8-10.6) k/uL RBC 2.99 L (4.30-5.90) m/uL Hgb 9.1 L (13.0-17.5) gm/dL Hct 29.8 L (39.0-53.0) % MCHC 30.4 L (31.0-37.0) g/dL RDW 15.9 H (11.5-15.5) % Neutrophils # 1.0 L (1.3-7.7) k/uL APTT 34.6 H (22.0-30.0) sec BUN (9-20) mg/dL Creatinine (0.66-1.25) mg/dL Total Creatine Kinase 195 H (55-170) U/L CK-MB (CK-2) 10.5 H (0.0-2.4) ng/mL Troponin I 2.370 H* (0.000-0.034) ng/mL Total Protein (6.3-8.2) g/dL Albumin (3.5-5.0) g/dL 11/17/18 11/17/18 Range/Units 05:47 12:58 WBC (3.8-10.6) k/uL RBC (4.30-5.90) m/uL Hgb (13.0-17.5) gm/dL Hct (39.0-53.0) % MCHC (31.0-37.0) g/dL RDW (11.5-15.5) % Neutrophils # (1.3-7.7) k/uL APTT 42.0 H (22.0-30.0) sec BUN 8 L (9-20) mg/dL Creatinine 0.59 L (0.66-1.25) mg/dL Total Creatine Kinase (55-170) U/L CK-MB (CK-2) (0.0-2.4) ng/mL Troponin I (0.000-0.034) ng/mL Total Protein 5.8 L (6.3-8.2) g/dL Albumin 3.2 L (3.5-5.0) g/dL Diabetes panel 11/17/18 11/17/18 Range/Units 05:47 05:47 Sodium 137 (137-145) mmol/L Potassium 4.2 (3.5-5.1) mmol/L Chloride 106 (98-107) mmol/L Carbon Dioxide 26 (22-30) mmol/L BUN 8 L (9-20) mg/dL Creatinine 0.59 L (0.66-1.25) mg/dL Glucose 95 (74-99) mg/dL Calcium 9.3 (8.4-10.2) mg/dL AST 32 (17-59) U/L ALT 26 (21-72) U/L Alkaline Phosphatase 90 (38-126) U/L Total Protein 5.8 L (6.3-8.2) g/dL Albumin 3.2 L (3.5-5.0) g/dL Triglycerides 84 (<150) mg/dL HDL Cholesterol 40 (40-60) mg/dL Thyroid panel 11/17/18 Range/Units 05:47 TSH 1.650 (0.465-4.680) mIU/L Calcium panel 11/17/18 Range/Units 05:47 Calcium 9.3 (8.4-10.2) mg/dL Albumin 3.2 L (3.5-5.0) g/dL Pituitary panel 11/17/18 11/17/18 Range/Units 05:47 05:47 Sodium 137 (137-145) mmol/L Potassium 4.2 (3.5-5.1) mmol/L Chloride 106 (98-107) mmol/L Carbon Dioxide 26 (22-30) mmol/L BUN 8 L (9-20) mg/dL Creatinine 0.59 L (0.66-1.25) mg/dL Glucose 95 (74-99) mg/dL Calcium 9.3 (8.4-10.2) mg/dL TSH 1.650 (0.465-4.680) mIU/L Adrenal panel 11/17/18 Range/Units 05:47 Sodium 137 (137-145) mmol/L Potassium 4.2 (3.5-5.1) mmol/L Chloride 106 (98-107) mmol/L Carbon Dioxide 26 (22-30) mmol/L BUN 8 L (9-20) mg/dL Creatinine 0.59 L (0.66-1.25) mg/dL Glucose 95 (74-99) mg/dL Calcium 9.3 (8.4-10.2) mg/dL Total Bilirubin 0.4 (0.2-1.3) mg/dL AST 32 (17-59) U/L ALT 26 (21-72) U/L Alkaline Phosphatase 90 (38-126) U/L Total Protein 5.8 L (6.3-8.2) g/dL Albumin 3.2 L (3.5-5.0) g/dL Assessment and Plan Plan: The patient was seen and examined. I agree with the above assessment and plan. The patient is a 58-year-old male reports new onset chest pain yesterday. He presented to the emergency department and was diagnosed with a non-ST elevation myocardial infarction. Cardiac catheterization revealed multivessel coronary artery disease including a tight left main coronary artery lesion. Urgent coronary artery bypass is recommended. The risks, benefits, and alternatives to this procedure were discussed with the patient. All his questions were answered. He is currently hemodynamically stable and chest pain-free on room air. His preoperative workup is underway. We will plan on performing his procedure first thing in the morning.
[2018-11-17] MEDS: NITROGLYCERIN OINT 1 INCH/GM PACKET TOPICAL SCH (17:31)
--- NOTE | 2018-11-17 17:37 | P.CNPUL ---
<Dana Garcia - Last Filed: 11/17/18 17:17> History of Present Illness Consult date: 11/17/18 Requesting physician: Tapan Cast Reason for consult: other (Critical care/ventilator management) Chief complaint: Chest pain History of present illness: This is a very pleasant 58-year-old gentleman who follows with Dr. Land as his primary care physician. He resides in [place]. He has a history of hypertension and chronic and ongoing tobacco dependence of approximate 40 years. This has a family history with of coronary artery disease with his father having a heart attack in his 50s and triple bypass surgery. He had presented to [facility] emergency room yesterday morning after awaking approximate 5 AM with chest pain. He was able to walk around and at times it down to rest and the pain seemed to subside. He then went to work the pain waxing and waning until 8:00 in the morning. Following that he did go into the [facility] emergency room. EKG there did not reveal any ST or T wave abnormalities. Chest x-ray showed no acute pulmonary process. He states he does not have any other significant symptoms. No diaphoresis, no nausea or vomiting, no radiation. No worsening shortness of breath. Repeat EKG revealed some nonspecific ST and T-wave abnormalities in the inferior leads. He was transferred here for the same last evening. Peak troponin last night was 4.25. White count 2.4. Hemoglobin 9.1. Creatinine 0.59. He did undergo cardiac catheterization today that revealed a calcified coronary arteries with severe triple-vessel disease with severe left main disease with 95% stenosis distally him a 95% left anterior descending artery, 99% stenosis of the left circumflex, 99% stenosis of the RCA.. Preserved left ventricular systolic function with ejection fraction 50%. He has been seen and evaluated by cardiothoracic surgery and the plan is for urgent coronary artery bypass grafting tomorrow morning with Dr. Medina. The patient is seen today in consultation in the intensive care unit. He is awake and alert in no acute distress. He has not been seen by a visitor services representative in the past. He denies any shortness of breath or dyspnea on exertion in the outpatient setting. No oxygen. No inhalers in the past. Able to do his stated activities without any significant shortness of breath. Up until yesterday when the chest pain started he had been in his normal state of health. He is maintaining good O2 saturations in the mid 90s on room air. He' s been afebrile. Hemodynamically stable. He remains on heparin drip. 0.9 normal saline at 100 ML's per hour. Bedside spirometry revealed FEV1 value 79% of predicted. Review of Systems Constitutional: Denies chills, Denies fever Eyes: denies blurred vision, denies decreased vision Ears: deny: decreased hearing Ears, nose, mouth and throat: Denies headache, Denies sore throat Cardiovascular: Reports chest pain Respiratory: Denies cough Gastrointestinal: Denies abdominal pain, Denies diarrhea, Denies nausea, Denies vomiting Genitourinary: Reports as per HPI Musculoskeletal: Denies myalgias Integumentary: Denies pruritus, Denies rash Neurological: Denies numbness, Denies weakness Psychiatric: Denies anxiety, Denies depression Endocrine: Denies fatigue, Denies weight change Hematologic/Lymphatic: Reports as per HPI Allergic/Immunologic: Reports as per HPI Past Medical History Past Medical History: Hyperlipidemia, Hypertension History of Any Multi-Drug Resistant Organisms: None Reported Additional Past Surgical History / Comment(s): vasectomy, mt cataracats removed -lens implants, rt cheek cyst removed x2 Past Anesthesia/Blood Transfusion Reactions: No Reported Reaction Additional Past Anesthesia/Blood Transfusion Reaction / Comment(s): has never recieved any blood Past Psychological History: No Psychological Hx Reported Smoking Status: Current every day smoker Past Alcohol Use History: Rare Past Drug Use History: None Reported - Past Family History Mother Additional Family Medical History / Comment(s): from complications from pne Father Family Medical History: Coronary Artery Disease (CAD), Myocardial Infarction (AR ) Additional Family Medical History / Comment(s): triple vessel cabg Medications and Allergies Home Medications Medication Instructions Recorded Confirmed Type Losartan/Hydrochlorothiazide 1 tab PO DAILY 11/16/18 11/16/18 History [Losartan-Hctz 100-12.5 mg Tab] Allergies Allergy/AdvReac Type Severity Reaction Status Date / Time No Known Allergies Allergy Unverified 11/16/18 15:04 Physical Exam Vitals: Vital Signs Temp Pulse Pulse Resp BP BP Pulse Ox 11/17/18 16:00 97.8 F 66 19 121/65 94 L 11/17/18 15:30 98.1 F 68 20 118/69 93 L 11/17/18 14:57 63 120/64 94 L 11/17/18 14:45 64 16 135/69 96 11/17/18 10:55 98.0 F 64 18 121/61 96 11/17/18 08:00 97.9 F 68 18 131/71 95 11/17/18 03:53 97.3 F L 74 15 113/60 98 11/17/18 00:00 97.4 F L 66 16 122/62 100 11/16/18 20:00 97.1 F L 73 17 110/61 96 11/16/18 18:28 98.1 F 68 20 134/77 96 11/16/18 18:02 80 16 121/66 Intake and Output 11/17/18 11/17/18 11/17/18 06:59 14:59 22:59 Intake Total 629.511 120 100 Output Total 0 Balance 629.511 120 100 Intake: IV 20 100 100 .9 100 100 Invasive Line 1 20 Intake, IV Titration 129.511 Amount Heparin Sod,Pork in 0.45% 129.511 NaCl 25,000 unit In 0.45 % NaCl 1 250ml.bag @ 12 UNITS/KG/HR 7.89 mls/hr IV .Q24H [facility] Rx#: [id number] Oral 480 20 Output: Urine 0 Other: Voiding Method Toilet # Voids 2 1 Weight 60.4 kg - Constitutional General appearance: average body habitus, no acute distress - EENT Eyes: EOMI, PERRLA ENT: hearing grossly normal Ears: bilateral: normal - Neck Neck: normal ROM Carotids: bilateral: upstroke normal Thyroid: bilateral: normal size - Respiratory Respiratory: bilateral: CTA - Cardiovascular Rhythm: regular Heart sounds: normal: S1, S2 - Gastrointestinal General gastrointestinal: normal bowel sounds - Integumentary Integumentary: normal turgor - Neurologic Neurologic: CNII-XII intact - Musculoskeletal Musculoskeletal: gait normal - Psychiatric Psychiatric: appropriate affect, intact judgment & insight Results - Laboratory Findings CBC and BMP: 11/17/18 05:47 11/17/18 05:47 PT/INR, D-dimer PT 11.8 sec (9.0-12.0) 11/17/18 12:58 INR 1.1 (<1.2) 11/17/18 12:58 Abnormal lab findings: Abnormal Labs 11/16/18 11/16/18 11/16/18 18:26 22:35 23:50 WBC RBC Hgb Hct MCHC RDW Neutrophils # APTT 31.7 H BUN Creatinine Total Creatine Kinase 223 H CK-MB (CK-2) 14.6 H Troponin I 3.470 H* 4.250 H* Total Protein Albumin 11/17/18 11/17/18 11/17/18 05:47 05:47 05:47 WBC 2.4 L RBC 2.99 L Hgb 9.1 L Hct 29.8 L MCHC 30.4 L RDW 15.9 H Neutrophils # 1.0 L APTT 34.6 H BUN Creatinine Total Creatine Kinase 195 H CK-MB (CK-2) 10.5 H Troponin I 2.370 H* Total Protein Albumin 11/17/18 11/17/18 05:47 12:58 WBC RBC Hgb Hct MCHC RDW Neutrophils # APTT 42.0 H BUN 8 L Creatinine 0.59 L Total Creatine Kinase CK-MB (CK-2) Troponin I Total Protein 5.8 L Albumin 3.2 L - Diagnostic Findings Chest x-ray: image reviewed Assessment and Plan Assessment: Impression: #1 acute non-ST segment elevation myocardial infarction. #2 Significant triple-vessel coronary artery disease per cardiac catheterization today, plan is for urgent coronary artery revascularization in the morning 11/18/2018 #3 Chronic and ongoing tobacco dependence. FEV1 value 79% of predicted. #4 Hypertension. #5 Family history of previous myocardial infarction of his father in the 50s with CABG. Plan: The patient was seen and evaluated by Dr. Perla. Chest x-ray and labs were reviewed. Spirometry reviewed. The plan is for revascularization in the a.m. We will assure bronchodilators every 4 hours, he'll be educated regarding the use the incentive spirometer and cough and deep breathing exercises. We'll plan for early extubation protocol as tolerated. He is educated regarding the importance of complete smoking cessation. NicoDerm patch will be offered. He' ll remain here in the intensive care unit for now. Remains in a heparin drip. We will continue to follow and make further recommendations based on his clinical status. I, the cosigning physician, performed a history & physical examination of the patient. Lungs sounds are clear. Maintaining good O2 saturations in the 90s on room air. I discussed the assessment and plan of care with my nurse practitioner, Dana Garcia. I attest to the above consultatiion patient as dictated by her. Time with Patient: Greater than 30 <Cecil Perla - Last Filed: 11/17/18 19:39> Physical Exam Vitals: Vital Signs Temp Pulse Pulse Resp BP BP Pulse Ox 11/17/18 19:00 68 8 L 108/61 95 11/17/18 18:30 64 17 126/77 93 L 11/17/18 18:00 73 11 L 127/75 95 11/17/18 17:30 61 12 125/64 95 11/17/18 17:00 71 16 131/66 95 11/17/18 16:30 64 16 132/69 93 L 11/17/18 16:00 97.8 F 66 19 121/65 94 L 11/17/18 15:30 98.1 F 68 20 118/69 93 L 11/17/18 14:57 63 120/64 94 L 11/17/18 14:45 64 16 135/69 96 11/17/18 10:55 98.0 F 64 18 121/61 96 11/17/18 08:00 97.9 F 68 18 131/71 95 11/17/18 03:53 97.3 F L 74 15 113/60 98 11/17/18 00:00 97.4 F L 66 16 122/62 100 11/16/18 20:00 97.1 F L 73 17 110/61 96 Intake and Output 11/17/18 11/17/18 11/17/18 06:59 14:59 22:59 Intake Total 629.511 120 400 Output Total 0 Balance 629.511 120 400 Intake: IV 20 100 400 .9 100 400 Invasive Line 1 20 Intake, IV Titration 129.511 Amount Heparin Sod,Pork in 0.45% 129.511 NaCl 25,000 unit In 0.45 % NaCl 1 250ml.bag @ 12 UNITS/KG/HR 7.89 mls/hr IV .Q24H [facility] Rx#: [id number] Oral 480 20 Output: Urine 0 Other: Voiding Method Toilet # Voids 2 1 Weight 60.4 kg Results - Laboratory Findings CBC and BMP: 11/17/18 05:47 11/17/18 05:47 PT/INR, D-dimer PT 11.8 sec (9.0-12.0) 11/17/18 12:58 INR 1.1 (<1.2) 11/17/18 12:58 Abnormal lab findings: Abnormal Labs 11/16/18 11/16/18 11/16/18 18:26 22:35 23:50 WBC RBC Hgb Hct MCHC RDW Neutrophils # APTT 31.7 H BUN Creatinine Total Creatine Kinase 223 H CK-MB (CK-2) 14.6 H Troponin I 3.470 H* 4.250 H* Total Protein Albumin 11/17/18 11/17/18 11/17/18 05:47 05:47 05:47 WBC 2.4 L RBC 2.99 L Hgb 9.1 L Hct 29.8 L MCHC 30.4 L RDW 15.9 H Neutrophils # 1.0 L APTT 34.6 H BUN Creatinine Total Creatine Kinase 195 H CK-MB (CK-2) 10.5 H Troponin I 2.370 H* Total Protein Albumin 11/17/18 11/17/18 05:47 12:58 WBC RBC Hgb Hct MCHC RDW Neutrophils # APTT 42.0 H BUN 8 L Creatinine 0.59 L Total Creatine Kinase CK-MB (CK-2) Troponin I Total Protein 5.8 L Albumin 3.2 L Assessment and Plan Assessment: The patient was seen in consultation along with nurse practitioner. The patient extensive triple-vessel coronary artery disease. LV function is preserved. We're going to proceed with coronary artery bypass surgery first thing in the morning. Currently resting comfortably in bed. Free of any chest pain. We'll follow. We managed the ventilator. Would offer this patient postoperative pulmonary care and management the ventilator.
--- NOTE | 2018-11-17 20:41 | US ---
EXAMINATION TYPE: US carotid duplex BILAT DATE OF EXAM: 11/17/2018 COMPARISON: NONE CLINICAL HISTORY: Pre-Op Surgery. EXAM MEASUREMENTS: RIGHT: Peak Systolic Velocity (PSV) cm/sec ----- Right CCA: 67.7 ----- Right ICA: 85.6 ----- Right ECA: 78.8 ICA/CCA ratio: 1.3 RIGHT: End Diastole cm/sec ----- Right CCA: 18.2 ----- Right ICA: 34.2 ----- Right ECA: 8.4 LEFT: Peak Systolic Velocity (PSV) cm/sec ----- Left CCA: 65.1 ----- Left ICA: 95.9 ----- Left ECA: 85.1 ICA/CCA ratio: 1.5 LEFT: End Diastole cm/sec ----- Left CCA: 17.4 ----- Left ICA: 36.0 ----- Left ECA: 11.4 VERTEBRALS (direction of flow): Right Vertebral: Antegrade Left Vertebral: Antegrade IMPRESSION: 1) No significant stenosis; no elevated velocities. 2) Bilateral intimal thickening; minimal plaque bilateral bulbs.
[2018-11-17] MEDS: MUPIROCIN 2% OINT 22 GM TUBE NASAL SCH (20:59)
[2018-11-17] MEDS: HEPARIN SODIUM,PORCINE 5,000 UNIT/ML 1 ML VIAL IV PRN (22:19)
[2018-11-17 22:49] LABS: Appearance,Urine Clear (Clear); Bilirubin,Urine Negative (Negative); Blood,Urine Small (Negative); Color,Urine Yellow; Glucose,Urine (UA) Negative (Negative); Ketones,Urine Trace (Negative); Leukocyte Esterase,Urine Negative (Negative); Mucus,Urine Rare /hpf; Nitrite,Urine Negative (Negative); Protein,Urine Trace (Negative); RBC,Urine 6 /hpf (0-5); WBC,Urine 2 /hpf (0-5)
[2018-11-17 22:51] LABS: Specific Gravity,Urine 1.047 (1.001-1.035)
[2018-11-17 23:38] LABS: Hemoglobin A1C 5.4 % (4.0-6.0)
[2018-11-17 23:45] LABS: Hepatitis A Antibody IgM Non-Reactive (Non-Reactive); Hepatitis B Core IgM Non-Reactive (Non-Reactive)
--- NOTE | 2018-11-17 23:47 | XR ---
History: ITS.REASON XR Reason: PreOp Cardiac Surgery Exam: XR CXR 2 VIEWS Comparison: None available FINDINGS: Slight prominence of the pulmonary vascularity. No focal consolidation or pleural effusion. The cardiac silhouette appears within limits. The visualized osseous structures appear within limits. IMPRESSION: Slight prominence of the pulmonary vascularity. No focal consolidation or pleural effusion.
[2018-11-18] MEDS: NITROGLYCERIN OINT 1 INCH/GM PACKET TOPICAL SCH ×3 (01:31→16:01)
[2018-11-18] MEDS ORDERED: PROTAMINE SULFATE 250 MG in EMPTY BAG 1 BAG IV ONE (05:00)
[2018-11-18] MEDS ORDERED: ceFAZolin 1,000 MG in SODIUM CHLORIDE 0.9% IRRIGATIO 1,000 ML IRRIGATION ONE (05:00)
[2018-11-18] MEDS ORDERED: ceFAZolin 2 GM in SODIUM CHLORIDE 0.9% 30 ML IVPB ONE (05:00)
[2018-11-18] MEDS ORDERED: ALBUMIN HUMAN 5% 500 ML in EMPTY BAG 1 BAG IVPB ONE (05:00)
[2018-11-18] MEDS ORDERED: MAGNESIUM SULFATE SYG 4.06 MEQ/ML SYRINGE IV ONE (05:00)
[2018-11-18] MEDS ORDERED: ATORVASTATIN 10 MG TAB PO ONE (05:00)
[2018-11-18] MEDS ORDERED: PHENYLEPHRINE 40 MG in SODIUM CHLORIDE 0.9% 250 ML IV ONE (05:00)
[2018-11-18] MEDS ORDERED: PROPOFOL 1,000 MG in EMPTY BAG 1 BAG IV ONE (05:00)
[2018-11-18] MEDS ORDERED: CLEVIDIPINE BUTYRATE 25 MG in EMPTY BAG 1 BAG IV ONE (05:00)
[2018-11-18] MEDS ORDERED: DEXTROSE 5% IN WATER 1,000 ML with POTASSIUM CHLORIDE 110 MEQ, MAGNESIUM SULFATE 16 MEQ... IV SCH ×5 (05:00)
[2018-11-18] MEDS ORDERED: HEPARIN SODIUM,PORCINE 5,000 UNIT in SODIUM CHLORIDE 0.9% 500 ML 500 ML IV ONE (05:00)
[2018-11-18] MEDS ORDERED: INSULIN REGULAR 100 UNIT in SODIUM CHLORIDE 0.9% 100 ML IV ONE (05:00)
[2018-11-18] MEDS ORDERED: PHENYLEPHRINE-0.9% NACL SYG 1 MG/10 ML SYRINGE IV ONE ×4 (05:00)
[2018-11-18] MEDS ORDERED: PAPAVERINE 360 MG in SODIUM CHLORIDE 0.9% 90 ML IV ONE (05:00)
[2018-11-18] MEDS ORDERED: ceFAZolin 2,000 MG in SODIUM CHLORIDE 0.9% 30 ML IVPB ONE (05:00)
[2018-11-18] MEDS ORDERED: NITROGLYCERIN-D5W PMX 50 MG in DEXTROSE/WATER 1 250ML.BAG IV ONE (05:00)
[2018-11-18] MEDS ORDERED: CHLORHEXIDINE GLUCONATE 15 ML CUP MUCOUS MEM ONE (05:00)
[2018-11-18] MEDS ORDERED: METOPROLOL TARTRATE 12.5 MG TAB PO ONE (05:00)
[2018-11-18] MEDS ORDERED: SODIUM BICARB 8.4% 50 ML SYR (1 MEQ/ML) IV ONE (05:00)
[2018-11-18] MEDS ORDERED: TRANEXAMIC ACID 2,000 MG in SODIUM CHLORIDE 0.9% 180 ML IV ONE (05:00)
[2018-11-18] MEDS ORDERED: NOREPINEPHRINE 4 MG in SODIUM CHLORIDE 0.9% 250 ML IV SCH (05:00)
[2018-11-18] MEDS ORDERED: NITROGLYCERIN-D5W PMX 25 MG/250 ML BTL IV ONE (05:00)
[2018-11-18] MEDS ORDERED: ALBUMIN HUMAN 25% 50 ML in EMPTY BAG 1 BAG IVPB ONE (05:00)
[2018-11-18] MEDS ORDERED: DEXTROSE 5% IN WATER 1,000 ML with POTASSIUM CHLORIDE 25 MEQ, SODIUM CHLORIDE 2.5MEQ/ML... IV SCH ×6 (05:00)
[2018-11-18] MEDS ORDERED: CALCIUM CHLORIDE 100 MG/ML 10 ML SYRINGE IVP ONE (05:00)
[2018-11-18] MEDS ORDERED: MANNITOL 25% 12.5 GM/50 ML VIAL IV ONE ×2 (05:00)
[2018-11-18] MEDS ORDERED: ASPIRIN 325 MG TAB PO ONE (05:00)
[2018-11-18] MEDS ORDERED: HEPARIN SODIUM 1,000 UN/ML (10ML VL) IV ONE (05:00)
[2018-11-18] MEDS ORDERED: DILTIAZEM 50 MG in SODIUM CHLORIDE 0.9% 40 ML IV SCH (05:00)
[2018-11-18] MEDS ORDERED: PROTAMINE SULFATE 10 MG/ML 25 ML VIAL IV ONE (05:00)
[2018-11-18 05:03] LABS: ALT 25 U/L (21-72); AST 20 U/L (17-59); Albumin 2.9 g/dL (3.5-5.0); Alkaline Phosphatase 77 U/L (38-126); Anion Gap 4 mmol/L; Blood Urea Nitrogen 10 mg/dL (9-20); Calcium 8.8 mg/dL (8.4-10.2); Carbon Dioxide 24 mmol/L (22-30); Chloride 109 mmol/L (98-107); Glucose 95 mg/dL (74-99); Potassium 4.1 mmol/L (3.5-5.1); Sodium 137 mmol/L (137-145); Total Bilirubin 0.3 mg/dL (0.2-1.3); Total Protein 5.3 g/dL (6.3-8.2)
[2018-11-18] MEDS: HEPARIN SODIUM,PORCINE 5,000 UNIT/ML 1 ML VIAL IV PRN ×2 (05:44→17:17)
[2018-11-18 05:49] LABS: Anisocytosis Slight; Basophils % (A) 0 %; Eosinophils # (A) 0.1 k/uL (0-0.7); Eosinophils % (A) 4 %; HCT 25.7 % (39.0-53.0); HGB 8.1 gm/dL (13.0-17.5); Lymphocytes # (A) 0.8 k/uL (1.0-4.8); Lymphocytes % (A) 48 %; MCH 31.5 pg (25.0-35.0); MCHC 31.7 g/dL (31.0-37.0); MCV 99.3 fL (80.0-100.0); Macrocytosis Slight; Mean Platelet Volume 6.6; Monocytes # (A) 0.2 k/uL (0-1.0); Monocytes % (A) 9 %; Neutrophils # (A) 0.6 k/uL (1.3-7.7); Neutrophils % (A) 36 %; Platelet Count 241 k/uL (150-450); RBC 2.58 m/uL (4.30-5.90); RDW 16.2 % (11.5-15.5); WBC 1.7 k/uL (3.8-10.6)
--- NOTE | 2018-11-18 07:56 | PN ---
PROGRESS NOTE Mr. Acosta is a 58-year-old male who presented with a non ST-segment elevation myocardial infarction, underwent cardiac catheterization, was found to have severe triple-vessel coronary artery disease with severe left main disease. His echocardiogram performed yesterday revealed an ejection fraction that is normal with mild tricuspid regurgitation. He is doing well this morning. He denies symptoms of chest pain. He has no dizziness. No palpitation. He denies any nausea. He continues to be on aspirin once a day, Lipitor 80 mg daily, metoprolol tartrate 25 mg twice a day. PHYSICAL EXAMINATION: Blood pressure 122/70 with the heart in the 60s. LUNGS: Clear. HEART: Regular rate and rhythm, S1, S2. No S3. No rub. ABDOMEN: Soft, nontender. EXTREMITIES: No edema. Right radial pulse intact. LAB DATA: Lab data revealed a hemoglobin of 8.1, white blood cell of 1.7, platelet count 241, BUN and creatinine 10 and 0.6. IMPRESSION: 1. [id number] elevation myocardial infarction. 2. Status post severe triple-vessel coronary artery disease with left main disease. 3. Leukopenia of unclear etiology. Patient's white blood cell yesterday was 2.4. 4. History of chronic tobacco use. 5. History of hypertension. RECOMMENDATION: Will obtain the input of the hematology service. Otherwise, the plan is to proceed with coronary artery bypass grafting today in view of his anatomy and his presentation. MMNORMAN / MOLINA: [id number] /
[2018-11-18] MEDS: ASPIRIN 81 MG PO SCH (08:53)
[2018-11-18] MEDS: ATORVASTATIN 80 MG TAB PO SCH ×2 (08:54→21:10)
[2018-11-18] MEDS: METOPROLOL TARTRATE 25 MG TAB PO SCH ×2 (08:54→21:09)
[2018-11-18] MEDS: HEPARIN SOD,PORK IN 0.45% NACL 25,000 UNIT in 0.45% NACL 1 250ML.BAG IV SCH (09:28)
[2018-11-18] MEDS: MUPIROCIN 2% OINT 22 GM TUBE NASAL SCH ×2 (09:28→22:21)
--- NOTE | 2018-11-18 11:16 | P.PN ---
Subjective Progress Note Date: 11/18/18 Principal diagnosis: Non-STEMI, severe triple vessel coronary artery disease with left main disease. Previous medical history of hypertension, hyperlipidemia, tobacco dependence with preoperative FEV1 79% of predicted, and family history of early coronary artery disease. Preoperative leukopenia of unknown origin, white blood cell count this morning 1.7. Preoperative normocytic, normochromic anemia. The patient is currently sitting up in bed in no acute distress. Denies any chest pain or shortness of breath since admission to the hospital. Denies any known history of leukopenia, states he has labs drawn at his primary care physician's office every 6 months. Objective - Vital Signs Vital signs: Vital Signs Temp 98.0 F 11/18/18 08:00 Pulse 71 11/18/18 10:00 Resp 16 11/18/18 10:00 BP 99/66 11/18/18 10:00 Pulse Ox 94 L 11/18/18 10:00 Intake & Output 11/17/18 11/18/18 11/18/18 18:59 06:59 18:59 Intake Total 520 1327.738 400 Output Total 0 800 Balance 520 527.738 400 Weight 60.4 kg Intake: IV 500 1200 400 .9 459 894 5149 400 Intake, IV Titration 127.738 0 Amount Heparin Sod,Pork in 0.45% 127.738 0 NaCl 25,000 unit In 0.45 % NaCl 1 250ml.bag @ 12 UNITS/KG/HR 7.24 mls/hr IV .Q24H [facility] Rx#: [id number] Oral 20 Output: Urine 0 800 Other: Voiding Method Urinal Urinal # Voids 1 1 - Constitutional General appearance: Present: cooperative, no acute distress - Respiratory Details: Lungs sounds diminished bilaterally. Respirations even, nonlabored. Currently on room air with oxygen saturation 96%. Able to achieve 1000 mL on his incentive spirometry. Strong, productive cough. - Cardiovascular Details: S1, S2 present. Regular rate and rhythm, sinus rhythm on telemetry. Palpable peripheral pulses bilaterally. No edema present. No calf pain or tenderness noted. - Gastrointestinal Gastrointestinal Comment(s): Abdomen soft, nontender, nondistended. Active bowel sounds present 4 quadrants. Tolerating diet. - Genitourinary Genitourinary Comment(s): Continues to void clear, yellow urine. - Integumentary Integumentary Comment(s): Skin is warm with evidence of good perfusion. - Neurologic Neurologic: Present: CNII-XII intact - Musculoskeletal Musculoskeletal: Present: gait normal, strength equal bilaterally - Psychiatric Psychiatric: Present: A&O x's 3, appropriate affect, intact judgment & insight - Allied health notes Allied health notes reviewed: nursing - Labs CBC & Chem 7: 11/18/18 04:34 11/18/18 04:34 Labs: Abnormal Lab Results - Last 24 Hours (Table) 11/17/18 11/17/18 11/17/18 Range/Units 12:58 21:07 21:07 WBC (3.8-10.6) k/uL RBC (4.30-5.90) m/uL Hgb (13.0-17.5) gm/dL Hct (39.0-53.0) % RDW (11.5-15.5) % Neutrophils # (1.3-7.7) k/uL Lymphocytes # (1.0-4.8) k/uL APTT 42.0 H 30.7 H (22.0-30.0) sec Chloride (98-107) mmol/L Creatinine (0.66-1.25) mg/dL Total Protein (6.3-8.2) g/dL Albumin (3.5-5.0) g/dL Ur Specific [place] (1.001-1.035) Urine Protein (Negative) Urine Ketones (Negative) Urine Blood (Negative) Urine RBC (0-5) /hpf Urine Mucus (None) /hpf Crossmatch See Detail 11/17/18 11/18/18 11/18/18 Range/Units 22:27 04:34 04:34 WBC 1.7 L (3.8-10.6) k/uL RBC 2.58 L (4.30-5.90) m/uL Hgb 8.1 L (13.0-17.5) gm/dL Hct 25.7 L (39.0-53.0) % RDW 16.2 H (11.5-15.5) % Neutrophils # 0.6 L (1.3-7.7) k/uL Lymphocytes # 0.8 L (1.0-4.8) k/uL APTT (22.0-30.0) sec Chloride 109 H (98-107) mmol/L Creatinine 0.61 L (0.66-1.25) mg/dL Total Protein 5.3 L (6.3-8.2) g/dL Albumin 2.9 L (3.5-5.0) g/dL Ur Specific [place] 1.047 H (1.001-1.035) Urine Protein Trace H (Negative) Urine Ketones Trace H (Negative) Urine Blood Small H (Negative) Urine RBC 6 H (0-5) /hpf Urine Mucus Rare H (None) /hpf Crossmatch 11/18/18 Range/Units 04:34 WBC (3.8-10.6) k/uL RBC (4.30-5.90) m/uL Hgb (13.0-17.5) gm/dL Hct (39.0-53.0) % RDW (11.5-15.5) % Neutrophils # (1.3-7.7) k/uL Lymphocytes # (1.0-4.8) k/uL APTT 35.5 H (22.0-30.0) sec Chloride (98-107) mmol/L Creatinine (0.66-1.25) mg/dL Total Protein (6.3-8.2) g/dL Albumin (3.5-5.0) g/dL Ur Specific [place] (1.001-1.035) Urine Protein (Negative) Urine Ketones (Negative) Urine Blood (Negative) Urine RBC (0-5) /hpf Urine Mucus (None) /hpf Crossmatch Microbiology - Last 24 Hours (Table) 11/17/18 22:27 Urine Culture - Preliminary Urine,Voided 11/17/18 17:34 Nasal Screen MRSA/MSSA - Preliminary Nasal Swab - Imaging and Cardiology Chest x-ray: report reviewed, image reviewed Assessment and Plan (1) Hypertension Current Visit: Yes Status: Chronic Code(s): I10 - ESSENTIAL (PRIMARY) HYPERTENSION SNOMED Code(s): 76919008 (2) Hyperlipidemia Current Visit: Yes Status: Chronic Code(s): E78.5 - HYPERLIPIDEMIA, UNSPECIFIED SNOMED Code(s): 35033895 (3) Tobacco dependence Current Visit: Yes Status: Chronic Code(s): F17.200 - NICOTINE DEPENDENCE, UNSPECIFIED, UNCOMPLICATED SNOMED Code(s): 10844167 (4) Family history of early CAD Current Visit: Yes Status: Chronic Code(s): Z82.49 - FAMILY HX OF ISCHEM HEART DIS AND OTH DIS OF THE CIRC SYS SNOMED Code(s): 282428540 (5) NSTEMI (non-ST elevated myocardial infarction) Current Visit: Yes Status: Acute Code(s): I21.4 - NON-ST ELEVATION (NSTEMI) MYOCARDIAL INFARCTION SNOMED Code(s): 16229604 Plan: 1. Coronary artery bypass graft surgery has been placed on hold until patient has workup for leukopenia by Dr. Hassan. 2. Tentatively we are planning to reschedule coronary artery bypass grafting November 20. This will give enough time for leukopenia workup. If patient becomes symptomatic intra-aortic balloon pump may be placed or we may take patient to the OR sooner. 3. Continue aspirin, statin, beta john therapy. Continue IV heparin. 4. Encourage incentive spirometry use 10 times every hour while awake. 5. More recommendations to follow. Time with Patient: Greater than 30
[2018-11-18 11:23] LABS: Reticulocyte % 1.4 % (0.5-2.0)
--- NOTE | 2018-11-18 14:34 | P.PN ---
Subjective 58-year-old admitted for chest pain found have non-ST elevation microinfarction underwent recatheterization showed stenosis of LAD. Patient was evaluated by carotid thoracic surgery for coronary artery bypass grafting supposed to undergo surgery today but because of low white blood cell count, surgery was held and hematology was consulted for this. Constitutional: Denied any fatigue denied any fever. Cardio vascular: denied any chest pain, palpitations Gastrointestinal denied any nausea vomiting Pulmonary: Denied any shortness of breath cough Neurologic denied any new focal deficits All inpatient medications were reviewed and appropriate changes in these medications as dictated in the interval history and assessment and plan. Objective - Vital Signs Vital signs: Vital Signs Temp 98.1 F 11/18/18 12:00 Pulse 76 11/18/18 14:00 Resp 20 11/18/18 14:00 BP 110/59 11/18/18 14:00 Pulse Ox 95 11/18/18 14:00 Intake & Output 11/17/18 11/18/18 11/18/18 18:59 06:59 18:59 Intake Total 520 1327.738 800 Output Total 0 800 275 Balance 520 527.738 525 Weight 60.4 kg Intake: IV 500 1200 800 .9 096 804 3630 800 Intake, IV Titration 127.738 0 Amount Heparin Sod,Pork in 0.45% 127.738 0 NaCl 25,000 unit In 0.45 % NaCl 1 250ml.bag @ 12 UNITS/KG/HR 7.24 mls/hr IV .Q24H [facility] Rx#: [id number] Oral 20 Output: Urine 0 800 275 Other: Voiding Method Urinal Urinal # Voids 1 1 - Exam PHYSICAL EXAMINATION: GENERAL: The patient is alert and oriented x3, not in any acute distress. Well developed, well nourished. HEENT: Pupils are round and equally reacting to light. EOMI. No scleral icterus. No conjunctival pallor. Normocephalic, atraumatic. No pharyngeal erythema. No thyromegaly. CARDIOVASCULAR: S1 and S2 present. No murmurs, rubs, or gallops. PULMONARY: Chest is clear to auscultation, no wheezing or crackles. ABDOMEN: Soft, nontender, nondistended, normoactive bowel sounds. No palpable organomegaly. MUSCULOSKELETAL: No joint swelling or deformity. EXTREMITIES: No cyanosis, clubbing, or pedal edema. NEUROLOGICAL: Gross neurological examination did not reveal any focal deficits. SKIN: No rashes. - Labs CBC & Chem 7: 11/18/18 04:34 11/18/18 04:34 Labs: Abnormal Lab Results - Last 24 Hours (Table) 11/17/18 11/17/18 11/17/18 Range/Units 21:07 21:07 22:27 WBC (3.8-10.6) k/uL RBC (4.30-5.90) m/uL Hgb (13.0-17.5) gm/dL Hct (39.0-53.0) % RDW (11.5-15.5) % Neutrophils # (1.3-7.7) k/uL Lymphocytes # (1.0-4.8) k/uL APTT 30.7 H (22.0-30.0) sec Chloride (98-107) mmol/L Creatinine (0.66-1.25) mg/dL Total Protein (6.3-8.2) g/dL Albumin (3.5-5.0) g/dL Ur Specific [place] 1.047 H (1.001-1.035) Urine Protein Trace H (Negative) Urine Ketones Trace H (Negative) Urine Blood Small H (Negative) Urine RBC 6 H (0-5) /hpf Urine Mucus Rare H (None) /hpf Crossmatch See Detail 11/18/18 11/18/18 11/18/18 Range/Units 04:34 04:34 04:34 WBC 1.7 L (3.8-10.6) k/uL RBC 2.58 L (4.30-5.90) m/uL Hgb 8.1 L (13.0-17.5) gm/dL Hct 25.7 L (39.0-53.0) % RDW 16.2 H (11.5-15.5) % Neutrophils # 0.6 L (1.3-7.7) k/uL Lymphocytes # 0.8 L (1.0-4.8) k/uL APTT 35.5 H (22.0-30.0) sec Chloride 109 H (98-107) mmol/L Creatinine 0.61 L (0.66-1.25) mg/dL Total Protein 5.3 L (6.3-8.2) g/dL Albumin 2.9 L (3.5-5.0) g/dL Ur Specific [place] (1.001-1.035) Urine Protein (Negative) Urine Ketones (Negative) Urine Blood (Negative) Urine RBC (0-5) /hpf Urine Mucus (None) /hpf Crossmatch Microbiology - Last 24 Hours (Table) 11/17/18 22:27 Urine Culture - Preliminary Urine,Voided 11/17/18 17:34 Nasal Screen MRSA/MSSA - Preliminary Nasal Swab Assessment and Plan Plan: -Acute non-ST elevation myocardial infarction: Stenosis of LAD scheduled for CABG the patient is on antiplatelet therapy beta john statin -Neutropenia: Probably secondary to acute myocardial infarction is probably a B12 deficiency as well but the hepatology will evaluate the patient -Hypertension: -Nicotine dependence: Counseling was provided
[2018-11-18 15:54] LABS: Rheumatoid Factor 7 IU/mL (0-15)
[2018-11-18] MEDS: ALPRAZolam 0.25 MG TAB PO PRN (16:01)
[2018-11-18 16:18] LABS: Iron Saturation 10.07 (15.00-50.00); Protein, Total 5.4 g/dL (6.2-8.2)
--- NOTE | 2018-11-18 17:57 | P.PN ---
Subjective Progress Note Date: 11/18/18 This 58-year-old male patient has triple-vessel disease and here patient is status post non-ST segment elevation myocardial infarction. The patient was supposed to undergo bypass surgery today. The surgery was canceled as the patient was found to have a low white cell count and his white cell count was at 1.7 with significant lymphocytosis. The patient's hemoglobin was also low at 8.1. As such, surgery was canceled and the patient was asked to have a hematology oncology evaluation prior to him undergoing his cardiac surgery. He is doing well. He has no specific complaints. No shortness of breath. He is fairly of any chest pain. No nausea vomiting or diarrhea. Is tolerating his diet. The plan is to still undergo the surgery after a hematologic evaluation is completed. He is afebrile. He is hemodynamically stable at this point in time. Objective - Vital Signs Vital signs: Vital Signs Temp 98.0 F 11/18/18 16:00 Pulse 70 11/18/18 17:00 Resp 16 11/18/18 17:00 BP 119/64 11/18/18 17:00 Pulse Ox 94 L 11/18/18 17:00 Intake & Output 11/17/18 11/18/18 11/18/18 18:59 06:59 18:59 Intake Total 520 1963.154 1648.382 Output Total 0 800 275 Balance 520 026.753 5830.382 Weight 60.4 kg Intake: IV 500 1200 1100 .9 171 667 7992 1100 Intake, IV Titration 127.738 83.382 Amount Heparin Sod,Pork in 0.45% 127.738 83.382 NaCl 25,000 unit In 0.45 % NaCl 1 250ml.bag @ 12 UNITS/KG/HR 7.24 mls/hr IV .Q24H AGNES Rx#: [id number] Oral 20 360 Output: Urine 0 800 275 Other: Voiding Method Urinal Urinal # Voids 1 1 1 # Bowel Movements 1 - Exam - Constitutional General appearance: average body habitus, no acute distress - EENT Eyes: EOMI, PERRLA ENT: hearing grossly normal Ears: bilateral: normal - Neck Neck: normal ROM Carotids: bilateral: upstroke normal Thyroid: bilateral: normal size - Respiratory Respiratory: bilateral: CTA - Cardiovascular Rhythm: regular Heart sounds: normal: S1, S2 - Gastrointestinal General gastrointestinal: normal bowel sounds - Integumentary Integumentary: normal turgor - Neurologic Neurologic: CNII-XII intact - Musculoskeletal Musculoskeletal: gait normal - Psychiatric Psychiatric: appropriate affect, intact judgment & insight - Labs CBC & Chem 7: 11/18/18 04:34 11/18/18 04:34 Labs: Abnormal Lab Results - Last 24 Hours (Table) 11/17/18 11/17/18 11/17/18 Range/Units 21:07 21:07 22:27 WBC (3.8-10.6) k/uL RBC (4.30-5.90) m/uL Hgb (13.0-17.5) gm/dL Hct (39.0-53.0) % RDW (11.5-15.5) % Neutrophils # (1.3-7.7) k/uL Lymphocytes # (1.0-4.8) k/uL APTT 30.7 H (22.0-30.0) sec Chloride (98-107) mmol/L Creatinine (0.66-1.25) mg/dL Iron (65-175) ug/dL Iron Saturation (15.00-50.00) Total Protein (6.3-8.2) g/dL Total Protein (PEP) (6.2-8.2) g/dL Albumin (3.5-5.0) g/dL Ur Specific [place] 1.047 H (1.001-1.035) Urine Protein Trace H (Negative) Urine Ketones Trace H (Negative) Urine Blood Small H (Negative) Urine RBC 6 H (0-5) /hpf Urine Mucus Rare H (None) /hpf Crossmatch See Detail 11/18/18 11/18/18 11/18/18 Range/Units 04:34 04:34 04:34 WBC 1.7 L (3.8-10.6) k/uL RBC 2.58 L (4.30-5.90) m/uL Hgb 8.1 L (13.0-17.5) gm/dL Hct 25.7 L (39.0-53.0) % RDW 16.2 H (11.5-15.5) % Neutrophils # 0.6 L (1.3-7.7) k/uL Lymphocytes # 0.8 L (1.0-4.8) k/uL APTT 35.5 H (22.0-30.0) sec Chloride 109 H (98-107) mmol/L Creatinine 0.61 L (0.66-1.25) mg/dL Iron (65-175) ug/dL Iron Saturation (15.00-50.00) Total Protein 5.3 L (6.3-8.2) g/dL Total Protein (PEP) (6.2-8.2) g/dL Albumin 2.9 L (3.5-5.0) g/dL Ur Specific [place] (1.001-1.035) Urine Protein (Negative) Urine Ketones (Negative) Urine Blood (Negative) Urine RBC (0-5) /hpf Urine Mucus (None) /hpf Crossmatch 11/18/18 11/18/18 Range/Units 10:42 16:20 WBC (3.8-10.6) k/uL RBC (4.30-5.90) m/uL Hgb (13.0-17.5) gm/dL Hct (39.0-53.0) % RDW (11.5-15.5) % Neutrophils # (1.3-7.7) k/uL Lymphocytes # (1.0-4.8) k/uL APTT 34.5 H (22.0-30.0) sec Chloride (98-107) mmol/L Creatinine (0.66-1.25) mg/dL Iron 28 L (65-175) ug/dL Iron Saturation 10.07 L (15.00-50.00) Total Protein (6.3-8.2) g/dL Total Protein (PEP) 5.4 L (6.2-8.2) g/dL Albumin (3.5-5.0) g/dL Ur Specific [place] (1.001-1.035) Urine Protein (Negative) Urine Ketones (Negative) Urine Blood (Negative) Urine RBC (0-5) /hpf Urine Mucus (None) /hpf Crossmatch Microbiology - Last 24 Hours (Table) 11/17/18 22:27 Urine Culture - Preliminary Urine,Voided 11/17/18 17:34 Nasal Screen MRSA/MSSA - Preliminary Nasal Swab Assessment and Plan Plan: Impression: #1 acute non-ST segment elevation myocardial infarction. The patient has severe atherosclerotic heart disease with triple-vessel involvement and the patient is still awaiting cardiac bypass surgery. The surgery was canceled today for hematologic issues that the patient was found to have leukopenia and anemia. #2 Significant triple-vessel coronary artery disease per cardiac catheterization today, plan is for urgent coronary artery revascularization #3 Chronic and ongoing tobacco dependence. FEV1 value 79% of predicted. #4 Hypertension. #5 Family history of previous myocardial infarction of his father in the 50s with CABG. #6 anemia #7 leukopenia with lymphocytosis. Plan The patient is undergoing a hematologic evaluation. This includes workup for serum levels of HIV, folate, ferritin, B12, YOSELYN and rheumatoid factor, reticulocyte count, serum immunofixation and iron levels. The surgery will be postponed for now. Hematologic profile is better evaluated and understood. The tentative surgery still scheduled for Friday. Meanwhile the patient is undergoing the complete blood workup regarding his leukopenia thrombus cytopenia. He'll be staying in ICU for now. We'll continue to follow.
--- NOTE | 2018-11-18 21:06 | P.CONS ---
History of Present Illness - Reason for Consult Consult date: 11/18/18 pancytopenia, CAD, Need for CABG - History of Present Illness The patient is a 58-year-old white male, who denies any significant past medical history other than hypertension. The patient had presented to [facility] emergency room with complaints of chest pain described as anterior chest pressure, with some diaphoresis. He denied any radiation. He experienced some mild associated shortness of breath. He was found to have ST elevation myocardial infarction and transferred here. He had a cardiac catheterization that showed severe coronary artery disease, including left main disease. CABG was urgently recommended. The patient's CBC showed a significant bicytopenia with hemoglobin 8.1, white count of 1.7. ANC was 0.6. Consult was therefore placed for further evaluation and recommendations. Patient denied any prior history of blood related problems. No history of any recent infections or changes medications. He states that he does get blood drawn every 6 months by his PCP, though it is not clear if he gets CBCs To me, the patient states that he drinks alcohol about 3-5 times a week, 3-[address] surgery however stated that he had told him that he drinks quite rarely. Review of Systems Constitutional: Denies chills, Denies fever Eyes: denies blurred vision, denies pain Ears: deny: decreased hearing, ear discharge, earache, tinnitus Ears, nose, mouth and throat: Denies headache, Denies sore throat Cardiovascular: Reports chest pain, Reports shortness of breath Respiratory: Reports dyspnea, Reports pain Gastrointestinal: Denies abdominal pain, Denies diarrhea, Denies nausea, Denies vomiting Genitourinary: Reports as per HPI Musculoskeletal: Denies myalgias Integumentary: Denies pruritus, Denies rash Neurological: Denies numbness, Denies weakness Psychiatric: Denies anxiety, Denies depression Endocrine: Denies fatigue, Denies weight change Hematologic/Lymphatic: Reports as per HPI Past Medical History Past Medical History: Hyperlipidemia, Hypertension History of Any Multi-Drug Resistant Organisms: None Reported Additional Past Surgical History / Comment(s): vasectomy, mt cataracats removed -lens implants, rt cheek cyst removed x2 Past Anesthesia/Blood Transfusion Reactions: No Reported Reaction Additional Past Anesthesia/Blood Transfusion Reaction / Comm: has never recieved any blood Past Psychological History: No Psychological Hx Reported Smoking Status: Current every day smoker Past Alcohol Use History: Rare Past Drug Use History: None Reported - Past Family History Mother Additional Family Medical History / Comment(s): from complications from pne Father Family Medical History: Coronary Artery Disease (CAD), Myocardial Infarction (MD ) Additional Family Medical History / Comment(s): triple vessel cabg Medications and Allergies Home Medications Medication Instructions Recorded Confirmed Type Losartan/Hydrochlorothiazide 1 tab PO DAILY 11/16/18 11/16/18 History [Losartan-Hctz 100-12.5 mg Tab] Allergies Allergy/AdvReac Type Severity Reaction Status Date / Time No Known Allergies Allergy Unverified 11/16/18 15:04 Physical Exam Vitals: Vital Signs Temp Pulse Resp BP Pulse Ox 11/18/18 19:00 73 15 106/55 96 11/18/18 18:30 69 18 131/77 95 11/18/18 17:30 68 18 117/71 96 11/18/18 17:00 70 16 119/64 94 L 11/18/18 16:30 60 20 129/74 95 11/18/18 16:00 98.0 F 74 18 129/74 96 11/18/18 15:53 17 11/18/18 15:30 70 17 128/82 96 11/18/18 15:00 71 20 128/102 96 11/18/18 14:30 66 21 120/69 95 11/18/18 14:00 76 20 110/59 95 11/18/18 13:30 68 16 124/71 95 11/18/18 13:00 73 16 113/60 95 11/18/18 12:30 74 12 108/64 97 11/18/18 12:00 98.1 F 69 12 108/60 96 11/18/18 11:59 12 11/18/18 11:00 68 12 105/72 96 11/18/18 10:30 74 14 98/62 95 11/18/18 10:00 71 16 99/66 94 L 11/18/18 09:30 84 16 114/70 91 L 11/18/18 09:00 62 12 113/61 96 11/18/18 08:00 98.0 F 69 12 110/62 95 11/18/18 07:00 65 8 L 117/64 97 11/18/18 06:00 64 17 120/71 97 11/18/18 05:00 120/56 92 L 11/18/18 04:00 98.7 F 68 14 122/79 94 L 11/18/18 03:00 62 14 122/79 94 L 11/18/18 02:00 65 17 93 L 11/18/18 01:00 61 17 95 11/18/18 00:00 97.9 F 75 16 94 L 11/17/18 23:21 115/77 11/17/18 23:00 80 14 111/68 95 11/17/18 22:00 62 15 103/58 94 L 11/17/18 21:00 79 14 113/66 92 L Intake and Output 11/18/18 11/18/18 11/18/18 06:59 14:59 22:59 Intake Total 978.932 826 3734.382 Output Total 400 275 Balance 578.662 096 5405.382 Intake: IV 900 800 500 .9 100 900 800 500 Intake, IV Titration 78.671 0 83.382 Amount Heparin Sod,Pork in 0.45% 78.671 0 83.382 NaCl 25,000 unit In 0.45 % NaCl 1 250ml.bag @ 12 UNITS/KG/HR 7.24 mls/hr IV .Q24H AGNES Rx#: [id number] Oral 960 Output: Urine 400 275 Other: Voiding Method Urinal Urinal Urinal # Voids 1 1 # Bowel Movements 1 Weight 60.4 kg - Constitutional General appearance: no acute distress - EENT Eyes: EOMI, PERRLA ENT: hearing grossly normal, normal oropharynx - Neck Neck: no lymphadenopathy - Respiratory Respiratory: bilateral: CTA - Cardiovascular Rhythm: regular Heart sounds: normal: S1, S2 - Gastrointestinal General gastrointestinal: normal bowel sounds, soft - Integumentary Integumentary: normal - Neurologic Neurologic: CNII-XII intact - Musculoskeletal Musculoskeletal: generalized weakness, strength equal bilaterally - Psychiatric Psychiatric: A&O x's 3, appropriate affect Results CBC & Chem 7: 11/18/18 04:34 11/18/18 04:34 Labs: Abnormal Lab Results - Last 24 Hours (Table) 11/17/18 11/17/18 11/17/18 Range/Units 21:07 21:07 22:27 WBC (3.8-10.6) k/uL RBC (4.30-5.90) m/uL Hgb (13.0-17.5) gm/dL Hct (39.0-53.0) % RDW (11.5-15.5) % Neutrophils # (1.3-7.7) k/uL Lymphocytes # (1.0-4.8) k/uL APTT 30.7 H (22.0-30.0) sec Chloride (98-107) mmol/L Creatinine (0.66-1.25) mg/dL Iron (65-175) ug/dL Iron Saturation (15.00-50.00) Total Protein (6.3-8.2) g/dL Total Protein (PEP) (6.2-8.2) g/dL Albumin (3.5-5.0) g/dL Ur Specific [place] 1.047 H (1.001-1.035) Urine Protein Trace H (Negative) Urine Ketones Trace H (Negative) Urine Blood Small H (Negative) Urine RBC 6 H (0-5) /hpf Urine Mucus Rare H (None) /hpf Crossmatch See Detail 11/18/18 11/18/18 11/18/18 Range/Units 04:34 04:34 04:34 WBC 1.7 L (3.8-10.6) k/uL RBC 2.58 L (4.30-5.90) m/uL Hgb 8.1 L (13.0-17.5) gm/dL Hct 25.7 L (39.0-53.0) % RDW 16.2 H (11.5-15.5) % Neutrophils # 0.6 L (1.3-7.7) k/uL Lymphocytes # 0.8 L (1.0-4.8) k/uL APTT 35.5 H (22.0-30.0) sec Chloride 109 H (98-107) mmol/L Creatinine 0.61 L (0.66-1.25) mg/dL Iron (65-175) ug/dL Iron Saturation (15.00-50.00) Total Protein 5.3 L (6.3-8.2) g/dL Total Protein (PEP) (6.2-8.2) g/dL Albumin 2.9 L (3.5-5.0) g/dL Ur Specific [place] (1.001-1.035) Urine Protein (Negative) Urine Ketones (Negative) Urine Blood (Negative) Urine RBC (0-5) /hpf Urine Mucus (None) /hpf Crossmatch 11/18/18 11/18/18 Range/Units 10:42 16:20 WBC (3.8-10.6) k/uL RBC (4.30-5.90) m/uL Hgb (13.0-17.5) gm/dL Hct (39.0-53.0) % RDW (11.5-15.5) % Neutrophils # (1.3-7.7) k/uL Lymphocytes # (1.0-4.8) k/uL APTT 34.5 H (22.0-30.0) sec Chloride (98-107) mmol/L Creatinine (0.66-1.25) mg/dL Iron 28 L (65-175) ug/dL Iron Saturation 10.07 L (15.00-50.00) Total Protein (6.3-8.2) g/dL Total Protein (PEP) 5.4 L (6.2-8.2) g/dL Albumin (3.5-5.0) g/dL Ur Specific [place] (1.001-1.035) Urine Protein (Negative) Urine Ketones (Negative) Urine Blood (Negative) Urine RBC (0-5) /hpf Urine Mucus (None) /hpf Crossmatch Microbiology - Last 24 Hours (Table) 11/17/18 22:27 Urine Culture - Preliminary Urine,Voided 11/17/18 17:34 Nasal Screen MRSA/MSSA - Preliminary Nasal Swab Comments: echocardiogram report reviewed Cardiac catheterization report reviewed Chest x-ray: report reviewed Assessment and Plan (1) Bicytopenia Narrative/Plan: The patient has a significant bicytopenia as noted. According to him, this is a new finding. At this time we do not have any prior CBCs available. These have been requested from the PCPs office. Physical exam is unremarkable. At this time with these possibilities were discussed with the patient. Full workup will be ordered with labs for nutritional deficiency, autoimmune markers , as well as protein electrophoresis studies. Ultrasound of the abdomen to assess liver and spleen will also be ordered. For normal circumstances, counts are in a safe range. However for major surgery, ANC greater than 1000 would be more desirable. A level between 500- 1000 is likely safe but may have some increased risk of infection and wound healing. If workup indicates that this is chronic, with possibly a dropped due to increased stress from the acute MD (such as due to alcohol effect/liver disease) , then it would likely be safe for the patient to proceed with surgery, with the use of white cell growth factors if needed. If there is concern for underlying bone marrow pathology, than the use of growth factors to facilitate surgery may carry some risk. In that case the decision would have to be based on risk benefit. Current Visit: Yes Status: Acute Code(s): D75.89 - OTHER SPECIFIED DISEASES OF BLOOD AND BLOOD-FORMING ORGANS SNOMED Code(s): 100147543 (2) NSTEMI (non-ST elevated myocardial infarction) Narrative/Plan: the patient has severe coronary artery disease, including left main disease, and CABG has been recommended. The case was extensively discussed with the cardiothoracic surgery service. Obviously it is desirable that the patient have surgery as soon as possible from the cardiology standpoint. The low blood counts can increase the risk of surgery, as noted above. The anemia can be treated with transfusions. If the patient does have an underlying bone marrow disorder such as myelodysplasia and transformation, or early acute leukemia, then the use of growth factors to improve his WBC, to reduce risk of post surgical complications, could potentially be detrimental. It was discussed in detail with the patient, that the decision in that case would be based based on risk benefit. In that case, in my opinion, that would actually favor the use of growth factors, since his cardiac issues are the more immediate concern. Case was discussed in detail with her to thoracic surgery. Surgery was initially planned for today but has been postponed. At this time it is tentatively scheduled for 11/20/18. I discussed with the patient, that if circumstances occurred where he had to go for surgery emergently, in my opinion it would be quite justified to do so. In that case we would use aggressive supportive measures, including the use of growth factors as needed Current Visit: Yes Status: Acute Code(s): I21.4 - NON-ST ELEVATION (NSTEMI) MYOCARDIAL INFARCTION SNOMED Code(s): 20033919 Plan: Defer to the admitting service and other consultants for management of his other medical issues
[2018-11-19] MEDS: NITROGLYCERIN OINT 1 INCH/GM PACKET TOPICAL SCH ×3 (00:22→17:07)
[2018-11-19 06:21] LABS: Anisocytosis Slight; Basophils % (A) 0 %; Eosinophils # (A) 0.1 k/uL (0-0.7); Eosinophils % (A) 5 %; HCT 24.7 % (39.0-53.0); HGB 7.6 gm/dL (13.0-17.5); Hypochromasia Moderate; Lymphocytes % (A) 45 %; MCH 31.2 pg (25.0-35.0); MCHC 30.8 g/dL (31.0-37.0); MCV 101.1 fL (80.0-100.0); Macrocytosis Slight; Mean Platelet Volume 6.6; Monocytes # (A) 0.2 k/uL (0-1.0); Monocytes % (A) 10 %; Neutrophils # (A) 0.8 k/uL (1.3-7.7); Neutrophils % (A) 37 %; Platelet Count 222 k/uL (150-450); RBC 2.44 m/uL (4.30-5.90); RDW 16.3 % (11.5-15.5); WBC 2.1 k/uL (3.8-10.6)
[2018-11-19] MEDS: HEPARIN SOD,PORK IN 0.45% NACL 25,000 UNIT in 0.45% NACL 1 250ML.BAG IV SCH ×2 (06:45→21:03)
[2018-11-19 06:46] LABS: ALT 23 U/L (21-72); AST 14 U/L (17-59); Albumin 2.7 g/dL (3.5-5.0); Alkaline Phosphatase 68 U/L (38-126); Anion Gap 3 mmol/L; Blood Urea Nitrogen 7 mg/dL (9-20); Calcium 8.8 mg/dL (8.4-10.2); Carbon Dioxide 24 mmol/L (22-30); Chloride 112 mmol/L (98-107); Glucose 94 mg/dL (74-99); Magnesium 1.8 mg/dL (1.6-2.3); Phosphorus 3.4 mg/dL (2.5-4.5); Potassium 4.2 mmol/L (3.5-5.1); Sodium 139 mmol/L (137-145); Total Bilirubin 0.3 mg/dL (0.2-1.3)
[2018-11-19] MEDS: MAGNESIUM SULFATE-D5W PMX 1 GM in DEXTROSE/WATER 1 100ML.BAG IVPB SCH ×2 (07:13→08:08)
--- NOTE | 2018-11-19 07:35 | PN ---
PROGRESS NOTE Mr. Acosta is a 58-year-old male who presented with non ST-segment elevation myocardial infarction, underwent cardiac catheterization, was found to have severe triple-vessel coronary artery disease with severe left main disease and calcified vessels. He was scheduled to undergo surgery yesterday but was found to have severe bicytopenia. He was evaluated by Dr. Hassan. The patient is doing well this morning. He is denying any chest pain. His breathing has been stable. He denies any dizziness or palpitation. He continued be on sinus mechanism on IV heparin. In addition to that, he is on aspirin once a day, Lipitor 80 mg daily, metoprolol tartrate 25 mg twice a day, nitro paste 1 inch q.8 hours. PHYSICAL EXAMINATION: Blood pressure 116/60 with the heart rate in the 60s. LUNGS: Clear. HEART: Regular rate and rhythm. S1, S2. No S3. No rub or gallop appreciated. ABDOMEN: Soft, nontender. EXTREMITIES: No edema. LAB DATA: Lab data revealed a hemoglobin of 7.6, white blood cell up to 2.1, platelet count of 222. BUN and creatinine 7 and 0.6. IMPRESSION: 1. Severe coronary artery disease with left main disease. 2. Status post [id number] elevation myocardial infarction. 3. Bicytopenia. 4. History of chronic tobacco use. 5. History of hypertension. RECOMMENDATION: From the cardiac standpoint, we will follow his lab data. If he is stable, I am hopeful that he should be able to proceed with surgical intervention tomorrow. MMODL / IJN: [id number] /
--- NOTE | 2018-11-19 08:04 | US ---
EXAMINATION TYPE: US abdomen complete DATE OF EXAM: 11/19/2018 COMPARISON: NONE CLINICAL HISTORY: pancytopenia. EXAM MEASUREMENTS: Liver Length: 16.3 cm Gallbladder Wall: 0.3 cm CBD: 0.5 cm Spleen: 14.6 cm Right Kidney: 11.9 x 5.1 x 5.5 cm Left Kidney: 10.7 x 5.6 x 4.8 cm Pancreas: Tail obscured by overlying bowel gas, visualized portions appear heterogeneous Liver: Heterogeneous Gallbladder: Wall appears to measure upper limits of normal with some pericholecystic fluid Evidence for sonographic Hardy's sign: No CBD: wnl as visualized, limited due to overlying bowel gas Spleen: Enlarged Right Kidney: No hydronephrosis or masses seen Left Kidney: No hydronephrosis or masses seen Upper IVC: wnl Abd Aorta: wnl The liver is heterogeneous. The intrahepatic portion of the IVC and proximal abdominal aorta are wit hin normal limits. There is no evidence of cholelithiasis. Common bile duct is unremarkable. The v isualized portions of the pancreas are heterogeneous. The spleen is enlarged. Kidneys are symmetric and free of hydronephrosis. No renal lesions are seen. IMPRESSION: 1. Hepatic heterogeneity may reflect fatty liver versus diffuse hepatocellular disease. 2. Splenomegaly.
[2018-11-19] MEDS: ASPIRIN 81 MG PO SCH (08:08)
[2018-11-19] MEDS: METOPROLOL TARTRATE 25 MG TAB PO SCH ×2 (08:08→20:54)
[2018-11-19] MEDS: MUPIROCIN 2% OINT 22 GM TUBE NASAL SCH ×2 (08:45→20:53)
--- NOTE | 2018-11-19 09:12 | P.PN ---
Subjective Progress Note Date: 11/19/18 Principal diagnosis: Non-STEMI, severe triple vessel coronary artery disease with left main disease. Previous medical history of hypertension, hyperlipidemia, tobacco dependence with preoperative FEV1 79% of predicted, and family history of early coronary artery disease. Preoperative leukopenia of unknown origin, white blood cell count this morning 2.1. Preoperative anemia, unknown origin. The patient is currently sitting up in bed in no acute distress. Denies any chest pain or shortness of breath since admission to the hospital. Denies any known history of leukopenia or anemia, states he has labs drawn at his primary care physician's office every 6 months although it is unclear if CBC is included in those labs. Objective - Vital Signs Vital signs: Vital Signs Temp 98.1 F 11/19/18 04:00 Pulse 61 11/19/18 09:00 Resp 17 11/19/18 09:00 BP 129/72 11/19/18 09:00 Pulse Ox 97 11/19/18 09:00 Intake & Output 11/18/18 11/19/18 11/19/18 18:59 06:59 18:59 Intake Total 2003.382 1606.618 600 Output Total 275 1075 800 Balance 1728.382 531.618 -200 Weight 64.6 kg Intake: IV 1200 1200 100 .9 100 1200 1200 100 Intake, IV Titration 83.382 166.618 100 Amount Heparin Sod,Pork in 0.45% 83.382 166.618 NaCl 25,000 unit In 0.45 % NaCl 1 250ml.bag @ 12 UNITS/KG/HR 7.24 mls/hr IV .Q24H [facility] Rx#: [id number] Magnesium Sulfate-D5w Pmx 100 1 gm In Dextrose/Water 1 100ml.bag @ 100 mls/hr IVPB Q1H [facility] Rx#: [id number] Oral 720 240 400 Output: Urine 275 1075 800 Other: Voiding Method Urinal Urinal Urinal # Voids 1 0 0 # Bowel Movements 1 - Constitutional General appearance: Present: cooperative, no acute distress - Respiratory Details: Lungs sounds diminished bilaterally. Respirations even, nonlabored. Currently on room air with oxygen saturation 95%. Able to achieve 1000 mL on his incentive spirometry. Strong, productive cough. - Cardiovascular Details: S1, S2 present. Regular rate and rhythm, sinus rhythm on telemetry. Palpable peripheral pulses bilaterally. No edema present. No calf pain or tenderness noted. - Gastrointestinal Gastrointestinal Comment(s): Abdomen soft, nontender, nondistended. Active bowel sounds present 4 quadrants. Tolerating diet. - Genitourinary Genitourinary Comment(s): Continues to void clear, yellow urine. - Integumentary Integumentary Comment(s): Skin is warm with evidence of good perfusion. - Neurologic Neurologic: Present: CNII-XII intact - Musculoskeletal Musculoskeletal: Present: gait normal, strength equal bilaterally - Psychiatric Psychiatric: Present: A&O x's 3, appropriate affect, intact judgment & insight - Allied health notes Allied health notes reviewed: nursing - Labs CBC & Chem 7: 11/19/18 05:57 11/19/18 05:57 Labs: Abnormal Lab Results - Last 24 Hours (Table) 11/18/18 11/18/18 11/18/18 Range/Units 10:42 16:20 23:23 WBC (3.8-10.6) k/uL RBC (4.30-5.90) m/uL Hgb (13.0-17.5) gm/dL Hct (39.0-53.0) % MCV (80.0-100.0) fL MCHC (31.0-37.0) g/dL RDW (11.5-15.5) % Neutrophils # (1.3-7.7) k/uL APTT 34.5 H 53.9 H (22.0-30.0) sec Chloride (98-107) mmol/L BUN (9-20) mg/dL Creatinine (0.66-1.25) mg/dL Iron 28 L (65-175) ug/dL Iron Saturation 10.07 L (15.00-50.00) AST (17-59) U/L Total Protein (6.3-8.2) g/dL Total Protein (PEP) 5.4 L (6.2-8.2) g/dL Albumin (3.5-5.0) g/dL 11/19/18 11/19/18 11/19/18 Range/Units 05:57 05:57 05:57 WBC 2.1 L (3.8-10.6) k/uL RBC 2.44 L (4.30-5.90) m/uL Hgb 7.6 L (13.0-17.5) gm/dL Hct 24.7 L (39.0-53.0) % MCV 101.1 H (80.0-100.0) fL MCHC 30.8 L (31.0-37.0) g/dL RDW 16.3 H (11.5-15.5) % Neutrophils # 0.8 L (1.3-7.7) k/uL APTT 46.8 H (22.0-30.0) sec Chloride 112 H (98-107) mmol/L BUN 7 L (9-20) mg/dL Creatinine 0.60 L (0.66-1.25) mg/dL Iron (65-175) ug/dL Iron Saturation (15.00-50.00) AST 14 L (17-59) U/L Total Protein 5.0 L (6.3-8.2) g/dL Total Protein (PEP) (6.2-8.2) g/dL Albumin 2.7 L (3.5-5.0) g/dL Microbiology - Last 24 Hours (Table) 11/17/18 22:27 Urine Culture - Final Urine,Voided 11/17/18 17:34 Nasal Screen MRSA/MSSA - Final Nasal Swab Assessment and Plan (1) Hypertension Current Visit: Yes Status: Chronic Code(s): I10 - ESSENTIAL (PRIMARY) HYPERTENSION SNOMED Code(s): 67373828 (2) Hyperlipidemia Current Visit: Yes Status: Chronic Code(s): E78.5 - HYPERLIPIDEMIA, UNSPECIFIED SNOMED Code(s): 44595268 (3) Tobacco dependence Current Visit: Yes Status: Chronic Code(s): F17.200 - NICOTINE DEPENDENCE, UNSPECIFIED, UNCOMPLICATED SNOMED Code(s): 99201603 (4) Family history of early CAD Current Visit: Yes Status: Chronic Code(s): Z82.49 - FAMILY HX OF ISCHEM HEART DIS AND OTH DIS OF THE CIRC SYS SNOMED Code(s): 602668313 (5) NSTEMI (non-ST elevated myocardial infarction) Current Visit: Yes Status: Acute Code(s): I21.4 - NON-ST ELEVATION (NSTEMI) MYOCARDIAL INFARCTION SNOMED Code(s): 00902805 Plan: 1. Coronary artery bypass graft surgery has been placed on hold until patient has workup for leukopenia, anemia by Dr. Hassan. Dr. Gaspar has requested a bone marrow biopsy be completed, discussed with Dr. Hassan who feels he may be able to accommodate this request tomorrow morning. 2. Records request from patient's primary care physician has been sent, awaiting results. 3. Continue aspirin, statin, beta john therapy. Continue IV heparin. 4. Encourage incentive spirometry use 10 times every hour while awake. 5. More recommendations to follow, including timing of surgery. Time with Patient: Greater than 30
[2018-11-19] MEDS: ALPRAZolam 0.25 MG TAB PO PRN (09:55)
--- NOTE | 2018-11-19 11:57 | P.PN ---
Subjective Progress Note Date: 11/19/18 Principal diagnosis: Non-ST segment elevation myocardial infarction, severe triple-vessel disease. This is a very pleasant 58-year-old gentleman who follows with Dr. Land as his primary care physician. He resides in [place]. He has a history of hypertension and chronic and ongoing tobacco dependence of approximate 40 years. This has a family history with of coronary artery disease with his father having a heart attack in his 50s and triple bypass surgery. He had presented to [facility] emergency room yesterday morning after awaking approximate 5 AM with chest pain. He was able to walk around and at times it down to rest and the pain seemed to subside. He then went to work the pain waxing and waning until 8:00 in the morning. Following that he did go into the [facility] emergency room. EKG there did not reveal any ST or T wave abnormalities. Chest x-ray showed no acute pulmonary process. He states he does not have any other significant symptoms. No diaphoresis, no nausea or vomiting, no radiation. No worsening shortness of breath. Repeat EKG revealed some nonspecific ST and T-wave abnormalities in the inferior leads. He was transferred here for the same last evening. Peak troponin last night was 4.25. White count 2.4. Hemoglobin 9.1. Creatinine 0.59. He did undergo cardiac catheterization today that revealed a calcified coronary arteries with severe triple-vessel disease with severe left main disease with 95% stenosis distally him a 95% left anterior descending artery, 99% stenosis of the left circumflex, 99% stenosis of the RCA.. Preserved left ventricular systolic function with ejection fraction 50%. He has been seen and evaluated by cardiothoracic surgery and the plan is for urgent coronary artery bypass grafting tomorrow morning with Dr. Medina. The patient is seen today in consultation in the intensive care unit. He is awake and alert in no acute distress. 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 He denies any shortness of breath or dyspnea on exertion in the outpatient setting. No oxygen. No inhalers in the past. Able to do his stated activities without any significant shortness of breath. Up until yesterday when the chest pain started he had been in his normal state of health. He is maintaining good O2 saturations in the mid 90s on room air. He' s been afebrile. Hemodynamically stable. He remains on heparin drip. 0.9 normal saline at 100 ML's per hour. Bedside spirometry revealed FEV1 value 79% of predicted. 11/18/2018: This 58-year-old male patient has triple-vessel disease and here patient is status post non-ST segment elevation myocardial infarction. The patient was supposed to undergo bypass surgery today. The surgery was canceled as the patient was found to have a low white cell count and his white cell count was at 1.7 with significant lymphocytosis. The patient's hemoglobin was also low at 8.1. As such, surgery was canceled and the patient was asked to have a hematology oncology evaluation prior to him undergoing his cardiac surgery. He is doing well. He has no specific complaints. No shortness of breath. He is fairly of any chest pain. No nausea vomiting or diarrhea. Is tolerating his diet. The plan is to still undergo the surgery after a hematologic evaluation is completed. He is afebrile. He is hemodynamically stable at this point in time. The patient is seen again today 11/19/2018 in follow-up in the intensive care unit. He is awake and alert in no acute distress. He has not had any further chest discomfort. He remains on a heparin drip. He has not had any shortness of breath cough or congestion. He is maintaining O2 saturations in the 90s on room air. The patient has been seen and evaluated by oncology. He feel the patient should proceed with coronary revascularization and if needed growth factors could be utilized. White count 2.1. Hemoglobin 7.6. Creatinine 0.60. Objective - Vital Signs Vital signs: Vital Signs Temp 98.1 F 11/19/18 04:00 Pulse 59 L 11/19/18 11:00 Resp 14 11/19/18 11:00 BP 128/77 11/19/18 11:00 Pulse Ox 93 L 11/19/18 11:00 Intake & Output 11/18/18 11/19/18 11/19/18 18:59 06:59 18:59 Intake Total 2002.382 1606.618 700 Output Total 275 1075 800 Balance 1728.382 531.618 -100 Weight 64.6 kg Intake: IV 1200 1200 100 .9 100 1200 1200 100 Intake, IV Titration 83.382 166.618 100 Amount Heparin Sod,Pork in 0.45% 83.382 166.618 NaCl 25,000 unit In 0.45 % NaCl 1 250ml.bag @ 12 UNITS/KG/HR 7.24 mls/hr IV .Q24H [facility] Rx#: [id number] Magnesium Sulfate-D5w Pmx 100 1 gm In Dextrose/Water 1 100ml.bag @ 100 mls/hr IVPB Q1H [facility] Rx#: [id number] Oral 720 240 500 Output: Urine 275 1075 800 Other: Voiding Method Urinal Urinal Urinal # Voids 1 0 0 # Bowel Movements 1 - Exam - Constitutional General appearance: average body habitus, no acute distress - EENT Eyes: EOMI, PERRLA ENT: hearing grossly normal Ears: bilateral: normal - Neck Neck: normal ROM Carotids: bilateral: upstroke normal Thyroid: bilateral: normal size - Respiratory Respiratory: bilateral: CTA - Cardiovascular Rhythm: regular Heart sounds: normal: S1, S2 - Gastrointestinal General gastrointestinal: normal bowel sounds - Integumentary Integumentary: normal turgor - Neurologic Neurologic: CNII-XII intact - Musculoskeletal Musculoskeletal: gait normal - Psychiatric Psychiatric: appropriate affect, intact judgment & insight - Labs CBC & Chem 7: 11/19/18 05:57 11/19/18 05:57 Labs: Abnormal Lab Results - Last 24 Hours (Table) 11/18/18 11/18/18 11/18/18 Range/Units 10:42 16:20 23:23 WBC (3.8-10.6) k/uL RBC (4.30-5.90) m/uL Hgb (13.0-17.5) gm/dL Hct (39.0-53.0) % MCV (80.0-100.0) fL MCHC (31.0-37.0) g/dL RDW (11.5-15.5) % Neutrophils # (1.3-7.7) k/uL APTT 34.5 H 53.9 H (22.0-30.0) sec Chloride (98-107) mmol/L BUN (9-20) mg/dL Creatinine (0.66-1.25) mg/dL Iron 28 L (65-175) ug/dL Iron Saturation 10.07 L (15.00-50.00) AST (17-59) U/L Total Protein (6.3-8.2) g/dL Total Protein (PEP) 5.4 L (6.2-8.2) g/dL Albumin (3.5-5.0) g/dL 11/19/18 11/19/18 11/19/18 Range/Units 05:57 05:57 05:57 WBC 2.1 L (3.8-10.6) k/uL RBC 2.44 L (4.30-5.90) m/uL Hgb 7.6 L (13.0-17.5) gm/dL Hct 24.7 L (39.0-53.0) % MCV 101.1 H (80.0-100.0) fL MCHC 30.8 L (31.0-37.0) g/dL RDW 16.3 H (11.5-15.5) % Neutrophils # 0.8 L (1.3-7.7) k/uL APTT 46.8 H (22.0-30.0) sec Chloride 112 H (98-107) mmol/L BUN 7 L (9-20) mg/dL Creatinine 0.60 L (0.66-1.25) mg/dL Iron (65-175) ug/dL Iron Saturation (15.00-50.00) AST 14 L (17-59) U/L Total Protein 5.0 L (6.3-8.2) g/dL Total Protein (PEP) (6.2-8.2) g/dL Albumin 2.7 L (3.5-5.0) g/dL Microbiology - Last 24 Hours (Table) 11/17/18 22:27 Urine Culture - Final Urine,Voided 11/17/18 17:34 Nasal Screen MRSA/MSSA - Final Nasal Swab Assessment and Plan Assessment: Impression: #1 acute non-ST segment elevation myocardial infarction. #2 Significant triple-vessel coronary artery disease per cardiac catheterization today, plan is for urgent coronary artery revascularization in the morning 11/18/2018 #3 Chronic and ongoing tobacco dependence. FEV1 value 79% of predicted. #4 Hypertension. #5 Family history of previous myocardial infarction of his father in the 50s with CABG.. #6 Bycytopenia. Current hemoglobin 7.6. White count 2.1. Plan: The patient was seen and evaluated by Dr. Perla. The patient remains chest pain-free and in no pulmonary distress. Continues to work well with the incentive spirometer. Remains on bronchodilators. He has been seen and evaluated by oncology. The plan is for revascularization in the a.m. with growth factors if needed. He is again educated regarding the importance of complete smoking cessation. He'll remain here in the intensive care unit for now. Remains in a heparin drip. We will continue to follow and make further recommendations based on his clinical status. I, the cosigning physician, performed a history & physical examination of the patient. Lungs sounds are clear. Maintaining good O2 saturations in the 90s on room air. I discussed the assessment and plan of care with my nurse practitioner, Dana Garcia. I attest to the above consultatiion patient as dictated by her.
[2018-11-19 15:22] LABS: Albumin 3.01 g/dL (3.80-4.90); Gamma Globulin 0.67 g/dL (0.70-1.50)
[2018-11-19] MEDS ORDERED: CYANOCOBALAMIN 1,000 MCG/ML 1 ML VIAL IM ONE (16:14)
[2018-11-19] MEDS ORDERED: SODIUM FERRIC GLUCONAT-SUCROSE 125 MG in SODIUM CHLORIDE 0.9% 100 ML IVPB SCH (16:15)
[2018-11-19] MEDS ORDERED: SODIUM FERRIC GLUCONAT-SUCROSE 125 MG in SODIUM CHLORIDE 0.9% 100 ML IVPB ONE (16:16)
--- NOTE | 2018-11-19 16:50 | P.PN ---
Subjective 58-year-old admitted for chest pain found have non-ST elevation microinfarction underwent recatheterization showed stenosis of LAD. Patient was evaluated by carotid thoracic surgery for coronary artery bypass grafting supposed to undergo surgery today but because of low white blood cell count, surgery was held and hematology was consulted for this. 11/19/2018 Patient was a valid bank hematology for bicytopenia and bicipital pain is believed secondary to his alcoholism and liver disease. And oncology cleared for surgery hopefully he'll go for coronary artery bypass grafting soon Constitutional: Denied any fatigue denied any fever. Cardio vascular: denied any chest pain, palpitations Gastrointestinal denied any nausea vomiting Pulmonary: Denied any shortness of breath cough Neurologic denied any new focal deficits All inpatient medications were reviewed and appropriate changes in these medications as dictated in the interval history and assessment and plan. Objective - Vital Signs Vital signs: Vital Signs Temp 98.1 F 11/19/18 04:00 Pulse 64 11/19/18 16:00 Resp 10 L 11/19/18 16:00 BP 105/73 11/19/18 16:00 Pulse Ox 95 11/19/18 16:00 Intake & Output 11/18/18 11/19/18 11/19/18 18:59 06:59 18:59 Intake Total 2003.382 4321.338 8697 Output Total 275 1075 1600 Balance 1728.382 531.618 -600 Weight 64.6 kg Intake: IV 1200 1200 100 .9 100 1200 1200 100 Intake, IV Titration 83.382 166.618 100 Amount Heparin Sod,Pork in 0.45% 83.382 166.618 NaCl 25,000 unit In 0.45 % NaCl 1 250ml.bag @ 12 UNITS/KG/HR 7.24 mls/hr IV .Q24H [facility] Rx#: [id number] Magnesium Sulfate-D5w Pmx 100 1 gm In Dextrose/Water 1 100ml.bag @ 100 mls/hr IVPB Q1H [facility] Rx#: [id number] Oral 720 240 800 Output: Urine 275 1075 1600 Other: Voiding Method Urinal Urinal Urinal # Voids 1 0 0 # Bowel Movements 1 - Exam PHYSICAL EXAMINATION: GENERAL: The patient is alert and oriented x3, not in any acute distress. Well developed, well nourished. HEENT: Pupils are round and equally reacting to light. EOMI. No scleral icterus. No conjunctival pallor. Normocephalic, atraumatic. No pharyngeal erythema. No thyromegaly. CARDIOVASCULAR: S1 and S2 present. No murmurs, rubs, or gallops. PULMONARY: Chest is clear to auscultation, no wheezing or crackles. ABDOMEN: Soft, nontender, nondistended, normoactive bowel sounds. No palpable organomegaly. MUSCULOSKELETAL: No joint swelling or deformity. EXTREMITIES: No cyanosis, clubbing, or pedal edema. NEUROLOGICAL: Gross neurological examination did not reveal any focal deficits. SKIN: No rashes. - Labs CBC & Chem 7: 11/19/18 05:57 11/19/18 05:57 Labs: Abnormal Lab Results - Last 24 Hours (Table) 11/18/18 11/18/18 11/18/18 Range/Units 10:42 16:20 23:23 WBC (3.8-10.6) k/uL RBC (4.30-5.90) m/uL Hgb (13.0-17.5) gm/dL Hct (39.0-53.0) % MCV (80.0-100.0) fL MCHC (31.0-37.0) g/dL RDW (11.5-15.5) % Neutrophils # (1.3-7.7) k/uL Pathologist Review APTT 34.5 H 53.9 H (22.0-30.0) sec Chloride (98-107) mmol/L BUN (9-20) mg/dL Creatinine (0.66-1.25) mg/dL AST (17-59) U/L Total Protein (6.3-8.2) g/dL Albumin (3.5-5.0) g/dL Albumin (PEP) 3.01 L (3.80-4.90) g/dL Gamma Globulins 0.67 L (0.70-1.50) g/dL Free Silvana LC, Quant 2.46 H (0.33-1.94) mg/dL 11/19/18 11/19/18 11/19/18 Range/Units 05:57 05:57 05:57 WBC 2.1 L (3.8-10.6) k/uL RBC 2.44 L (4.30-5.90) m/uL Hgb 7.6 L (13.0-17.5) gm/dL Hct 24.7 L (39.0-53.0) % MCV 101.1 H (80.0-100.0) fL MCHC 30.8 L (31.0-37.0) g/dL RDW 16.3 H (11.5-15.5) % Neutrophils # 0.8 L (1.3-7.7) k/uL Pathologist Review See comment A APTT 46.8 H (22.0-30.0) sec Chloride 112 H (98-107) mmol/L BUN 7 L (9-20) mg/dL Creatinine 0.60 L (0.66-1.25) mg/dL AST 14 L (17-59) U/L Total Protein 5.0 L (6.3-8.2) g/dL Albumin 2.7 L (3.5-5.0) g/dL Albumin (PEP) (3.80-4.90) g/dL Gamma Globulins (0.70-1.50) g/dL Free Silvana LC, Quant (0.33-1.94) mg/dL 11/19/18 Range/Units 12:17 WBC (3.8-10.6) k/uL RBC (4.30-5.90) m/uL Hgb (13.0-17.5) gm/dL Hct (39.0-53.0) % MCV (80.0-100.0) fL MCHC (31.0-37.0) g/dL RDW (11.5-15.5) % Neutrophils # (1.3-7.7) k/uL Pathologist Review APTT 55.9 H (22.0-30.0) sec Chloride (98-107) mmol/L BUN (9-20) mg/dL Creatinine (0.66-1.25) mg/dL AST (17-59) U/L Total Protein (6.3-8.2) g/dL Albumin (3.5-5.0) g/dL Albumin (PEP) (3.80-4.90) g/dL Gamma Globulins (0.70-1.50) g/dL Free Silvana LC, Quant (0.33-1.94) mg/dL Microbiology - Last 24 Hours (Table) 11/17/18 22:27 Urine Culture - Final Urine,Voided 11/17/18 17:34 Nasal Screen MRSA/MSSA - Final Nasal Swab Assessment and Plan Plan: -Acute non-ST elevation myocardial infarction: Stenosis of LAD scheduled for CABG the patient is on antiplatelet therapy beta john statin -bicytopenia: Secondary to chronic liver disease most probably an from alcoholism, acute myocardial infarction may have frustrated significant drop in white blood cell count -Hypertension: -Nicotine dependence: Counseling was provided -Hyperlipidemia
[2018-11-19] MEDS: ATORVASTATIN 80 MG TAB PO SCH (20:53)
--- NOTE | 2018-11-20 00:20 | P.PN ---
Subjective Progress Note Date: 11/19/18 The pt denied any recurrence of chest pain, or SOB. No obvious bleeding/f/c/n /v/ Objective - Vital Signs Vital signs: Vital Signs Temp 98.1 F 11/19/18 20:00 Pulse 64 11/19/18 21:00 Resp 18 11/19/18 21:00 BP 117/63 11/19/18 21:00 Pulse Ox 93 L 11/19/18 21:00 Intake & Output 11/19/18 11/19/18 11/20/18 06:59 18:59 06:59 Intake Total 4146.326 0653 196.053 Output Total 1075 2200 400 Balance 531.618 -700 -203.947 Weight 64.6 kg Intake: IV 1200 100 .9 100 1200 100 Intake, IV Titration 166.618 200 196.053 Amount Heparin Sod,Pork in 0.45% 166.618 196.053 NaCl 25,000 unit In 0.45 % NaCl 1 250ml.bag @ 12 UNITS/KG/HR 7.24 mls/hr IV .Q24H [facility] Rx#: [id number] Magnesium Sulfate-D5w Pmx 100 1 gm In Dextrose/Water 1 100ml.bag @ 100 mls/hr IVPB Q1H [facility] Rx#: [id number] Sodium Ferric Gluconat- 100 Sucrose 125 mg In Sodium Chloride 0.9% 100 ml @ 100 mls/hr IVPB ONCE ONE Rx#:[id number] Oral 240 1200 Output: Urine 1075 2200 400 Other: Voiding Method Urinal Urinal Urinal # Voids 0 0 # Bowel Movements 1 - Constitutional General appearance: Present: no acute distress - EENT Eyes: Present: EOMI ENT: Present: hearing grossly normal, normal oropharynx - Respiratory Respiratory: bilateral: CTA - Cardiovascular Rhythm: regular Heart sounds: normal: S1, S2 - Gastrointestinal General gastrointestinal: Present: normal bowel sounds, soft - Integumentary Integumentary: Present: normal - Neurologic Neurologic: Present: CNII-XII intact - Musculoskeletal Musculoskeletal: Present: strength equal bilaterally - Psychiatric Psychiatric: Present: A&O x's 3, appropriate affect - Labs CBC & Chem 7: 11/19/18 05:57 11/19/18 05:57 Labs: Abnormal Lab Results - Last 24 Hours (Table) 11/18/18 11/18/18 11/19/18 Range/Units 10:42 23:23 05:57 WBC 2.1 L (3.8-10.6) k/uL RBC 2.44 L (4.30-5.90) m/uL Hgb 7.6 L (13.0-17.5) gm/dL Hct 24.7 L (39.0-53.0) % MCV 101.1 H (80.0-100.0) fL MCHC 30.8 L (31.0-37.0) g/dL RDW 16.3 H (11.5-15.5) % Neutrophils # 0.8 L (1.3-7.7) k/uL Pathologist Review See comment A APTT 53.9 H (22.0-30.0) sec Chloride (98-107) mmol/L BUN (9-20) mg/dL Creatinine (0.66-1.25) mg/dL AST (17-59) U/L Total Protein (6.3-8.2) g/dL Albumin (3.5-5.0) g/dL Albumin (PEP) 3.01 L (3.80-4.90) g/dL Gamma Globulins 0.67 L (0.70-1.50) g/dL Free [place] LC, Quant 2.46 H (0.33-1.94) mg/dL 11/19/18 11/19/18 11/19/18 Range/Units 05:57 05:57 12:17 WBC (3.8-10.6) k/uL RBC (4.30-5.90) m/uL Hgb (13.0-17.5) gm/dL Hct (39.0-53.0) % MCV (80.0-100.0) fL MCHC (31.0-37.0) g/dL RDW (11.5-15.5) % Neutrophils # (1.3-7.7) k/uL Pathologist Review APTT 46.8 H 55.9 H (22.0-30.0) sec Chloride 112 H (98-107) mmol/L BUN 7 L (9-20) mg/dL Creatinine 0.60 L (0.66-1.25) mg/dL AST 14 L (17-59) U/L Total Protein 5.0 L (6.3-8.2) g/dL Albumin 2.7 L (3.5-5.0) g/dL Albumin (PEP) (3.80-4.90) g/dL Gamma Globulins (0.70-1.50) g/dL Free [place] LC, Quant (0.33-1.94) mg/dL Microbiology - Last 24 Hours (Table) 11/17/18 22:27 Urine Culture - Final Urine,Voided 11/17/18 17:34 Nasal Screen MRSA/MSSA - Final Nasal Swab Assessment and Plan (1) Bicytopenia Narrative/Plan: W/u is continuing at this time. So far there appears to be some iron deficiency. B12 is borderline, with MMA pending. WBC is mildy improved, with Hgb slightly lower. More significantly, the US abdomen shows heterogenous appearance of the liver and splenomegaly, suggesting chronic liver disease. Given the pt's h/o at least chronic moderate ETOH use, ETOH related effect on the bone marrow, and CLD with splenomegaly and splenic sequestration is the primary differential at this time. Diff was d/w pathology. A peripheral smear was not indicated due to no abnormal forms seen on automated diff. A smear was requested to be performed and reviewed by the pathologist for additional confirmation The case was d/w Cardiology and CTS in detail. To r/o more aggressive marrow pathology for sure, a bone marrow would be required. Cardiology confirmed that the pt would be considered high risk with or without sedation. If an aggressive pathology is found the pt would not be a candidate for any definitive treatment without revascularization. The pathology report would , in any case , generally not be finalized for some days, and at this time , it is not clear how long the surgery can be delayed. Heparin would need to be stopped for some hours for the procedure, which could entail additional risk in this setting. In this case, thus it is not clear if risk - benefit favors doing a marrow at this time. We would plan it only if CTS considers it necessary for them to proceed with the CABG. The procedure was d/w the pt and his family in detail. - Administer IV iron - If the pt proceeds [facility] surgery, will plan on monitoring closely, with use of transfusion support as well as growth factors , as needed to keep counts in a safe range. Current Visit: Yes Status: Acute Code(s): D75.89 - OTHER SPECIFIED DISEASES OF BLOOD AND BLOOD-FORMING ORGANS SNOMED Code(s): 332861452 (2) NSTEMI (non-ST elevated myocardial infarction) Narrative/Plan: Pt is on aggressive medical management. He is currently asymptomatic. The plan is for surgery, per CTS. Current Visit: Yes Status: Acute Code(s): I21.4 - NON-ST ELEVATION (NSTEMI) MYOCARDIAL INFARCTION SNOMED Code(s): 78973446 Plan: > 30 mins spent, > 50% in counselling and coordination of care
[2018-11-20] MEDS: NITROGLYCERIN OINT 1 INCH/GM PACKET TOPICAL SCH ×2 (00:59→09:15)
[2018-11-20 06:05] LABS: Anisocytosis Slight; Basophils % (A) 0 %; Eosinophils # (A) 0.1 k/uL (0-0.7); Eosinophils % (A) 5 %; HCT 25.7 % (39.0-53.0); HGB 7.7 gm/dL (13.0-17.5); Hypochromasia Slight; Lymphocytes # (A) 0.9 k/uL (1.0-4.8); Lymphocytes % (A) 45 %; MCH 30.1 pg (25.0-35.0); MCV 100.1 fL (80.0-100.0); Macrocytosis Slight; Mean Platelet Volume 7.4; Monocytes # (A) 0.2 k/uL (0-1.0); Monocytes % (A) 10 %; Neutrophils # (A) 0.8 k/uL (1.3-7.7); Neutrophils % (A) 37 %; Platelet Count 234 k/uL (150-450); RBC 2.57 m/uL (4.30-5.90); RDW 16.2 % (11.5-15.5)
[2018-11-20 06:20] LABS: ALT 31 U/L (21-72); AST 17 U/L (17-59); Albumin 2.8 g/dL (3.5-5.0); Alkaline Phosphatase 75 U/L (38-126); Anion Gap 2 mmol/L; Blood Urea Nitrogen 9 mg/dL (9-20); Calcium 8.9 mg/dL (8.4-10.2); Carbon Dioxide 25 mmol/L (22-30); Chloride 111 mmol/L (98-107); Glucose 89 mg/dL (74-99); Phosphorus 3.9 mg/dL (2.5-4.5); Potassium 4.2 mmol/L (3.5-5.1); Sodium 138 mmol/L (137-145); Total Bilirubin 0.3 mg/dL (0.2-1.3); Total Protein 5.1 g/dL (6.3-8.2)
--- NOTE | 2018-11-20 07:33 | XR ---
EXAMINATION TYPE: XR chest 1V portable DATE OF EXAM: 11/20/2018 COMPARISON: 11/17/2018 HISTORY: Cardiopulmonary disease. Preoperative examination. TECHNIQUE: Single frontal view of the chest is obtained. FINDINGS: There is a new right lower lung opacity and patchy linear atelectasis at the costophrenic angle. Remainder the lungs are clear. Cardia mediastinal silhouette is within normal limits. Osseous structures are grossly intact. No sizable pneumothorax or pleural effusion. IMPRESSION: New right lower lobe opacity favored to represent atelectasis given its linear morpholog y. Pneumonia is a possibility in the appropriate clinical setting.
[2018-11-20] MEDS: ASPIRIN 81 MG PO SCH (09:15)
[2018-11-20] MEDS: METOPROLOL TARTRATE 25 MG TAB PO SCH (09:15)
[2018-11-20] MEDS: MUPIROCIN 2% OINT 22 GM TUBE NASAL SCH ×2 (09:16→21:09)
--- NOTE | 2018-11-20 09:28 | PN ---
PROGRESS NOTE Mr. Acosta is a 58-year-old male with a history of chronic tobacco use, who presented with a non STEMI. Underwent cardiac catheterization and was found to have severe triple-vessel coronary artery disease, with significant left main disease and calcified vessel. He is doing well this morning. He continues to be on IV heparin, hemodynamically stable with no chest discomfort. He was noted to have leukopenia and anemia and workup with the progress in regard to the etiology and the risk for surgical intervention. The case was discussed yesterday with Dr. Gaspar and then the plan is to proceed with surgery today, understanding the increased risk of infectious process, but because of his anatomy, it was felt that intervention is needed. Patient has done well since yesterday. He has no symptoms of chest pain. His breathing has been stable. He denies any dizziness or palpitation. Hemodynamically, he is stable. He continues to be on IV heparin, aspirin, Lipitor 80 mg daily, metoprolol 25 mg twice a day, nitro paste 1 inch q.8 hours. PHYSICAL EXAMINATION: Blood pressure 129/35 with a heart rate in 60s. LUNGS: Clear. HEART: Regular rate and rhythm, S1, S2. No S3. No rub. ABDOMEN: Soft, nontender. EXTREMITIES: No edema. LAB DATA: Revealed BUN and creatinine of 9 and 0.61. His white blood cell is 2000, his hemoglobin is 7.7, platelet count of 234. His neutrophils are 0.8%. IMPRESSION: 1. Severe triple-vessel coronary artery disease with left main disease. 2. Status post non STEMI. 3. Bicytopenia with splenomegaly and abnormal hepatic ultrasound with possible fatty liver. 4. History of smoking. RECOMMENDATION: From the cardiac standpoint, the patient will be evaluated by Dr. Gaspar, probably proceed with coronary artery bypass grafting this afternoon. In the meantime, will continue present therapy. MMODL / IJN: [id number] /
--- NOTE | 2018-11-20 10:16 | P.PN ---
Subjective Progress Note Date: 11/20/18 Principal diagnosis: Non-STEMI, severe triple vessel coronary artery disease with left main disease. Previous medical history of hypertension, hyperlipidemia, tobacco dependence with preoperative FEV1 79% of predicted, and family history of early coronary artery disease. Preoperative bicytopenia of unknown origin. The patient is currently sitting up in bed in no acute distress. Denies any chest pain or shortness of breath since admission to the hospital. White blood cell count this morning 2.0, hemoglobin 7.7, absolute neutrophil count 800. Patient started on IV iron per hematology. Patient has no new questions at this time. Objective - Vital Signs Vital signs: Vital Signs Temp 98.2 F 11/20/18 09:18 Pulse 58 L 11/20/18 09:18 Resp 28 H 11/20/18 09:18 BP 127/71 11/20/18 09:18 Pulse Ox 94 L 11/20/18 09:00 Intake & Output 11/19/18 11/20/18 11/20/18 18:59 06:59 18:59 Intake Total 1500 196.053 0 Output Total 2200 1470 0 Balance -700 -1273.947 0 Weight 64.4 kg Intake: IV 100 .9 100 100 Intake, IV Titration 200 196.053 Amount Heparin Sod,Pork in 0.45% 196.053 NaCl 25,000 unit In 0.45 % NaCl 1 250ml.bag @ 12 UNITS/KG/HR 7.24 mls/hr IV .Q24H [facility] Rx#: [id number] Magnesium Sulfate-D5w Pmx 100 1 gm In Dextrose/Water 1 100ml.bag @ 100 mls/hr IVPB Q1H [facility] Rx#: [id number] Sodium Ferric Gluconat- 100 Sucrose 125 mg In Sodium Chloride 0.9% 100 ml @ 100 mls/hr IVPB ONCE ONE Rx#:[id number] Oral 1200 Blood Product 0 Rc As-1 Unit 0 [id number] Output: Urine 2200 1470 0 Other: Voiding Method Urinal Urinal # Voids 0 # Bowel Movements 1 - Constitutional General appearance: Present: cooperative, no acute distress - Respiratory Details: Lungs sounds diminished bilaterally. Respirations even, nonlabored. Currently on room air with oxygen saturation 94%. Able to achieve 1250 mL on his incentive spirometry. Strong, productive cough. - Cardiovascular Details: S1, S2 present. Regular rate and rhythm, sinus rhythm on telemetry. Palpable peripheral pulses bilaterally. No edema present. No calf pain or tenderness noted. - Gastrointestinal Gastrointestinal Comment(s): Abdomen soft, nontender, nondistended. Active bowel sounds present 4 quadrants. Currently nothing by mouth for surgery later today.. - Genitourinary Genitourinary Comment(s): Continues to void clear, yellow urine. - Integumentary Integumentary Comment(s): Skin is warm with evidence of good perfusion. - Neurologic Neurologic: Present: CNII-XII intact - Musculoskeletal Musculoskeletal: Present: gait normal, strength equal bilaterally - Psychiatric Psychiatric: Present: A&O x's 3, appropriate affect, intact judgment & insight - Allied health notes Allied health notes reviewed: nursing - Labs CBC & Chem 7: 11/20/18 04:45 11/20/18 04:45 Labs: Abnormal Lab Results - Last 24 Hours (Table) 11/17/18 11/18/18 11/19/18 Range/Units 21:07 10:42 05:57 WBC 2.1 L (3.8-10.6) k/uL RBC 2.44 L (4.30-5.90) m/uL Hgb 7.6 L (13.0-17.5) gm/dL Hct 24.7 L (39.0-53.0) % MCV 101.1 H (80.0-100.0) fL MCHC 30.8 L (31.0-37.0) g/dL RDW 16.3 H (11.5-15.5) % Neutrophils # 0.8 L (1.3-7.7) k/uL Lymphocytes # (1.0-4.8) k/uL Pathologist Review See comment A APTT (22.0-30.0) sec Chloride (98-107) mmol/L Creatinine (0.66-1.25) mg/dL Total Protein (6.3-8.2) g/dL Albumin (3.5-5.0) g/dL Albumin (PEP) 3.01 L (3.80-4.90) g/dL Gamma Globulins 0.67 L (0.70-1.50) g/dL Free [place] LC, Quant 2.46 H (0.33-1.94) mg/dL Crossmatch See Detail 11/19/18 11/20/18 11/20/18 Range/Units 12:17 04:45 04:45 WBC (3.8-10.6) k/uL RBC (4.30-5.90) m/uL Hgb (13.0-17.5) gm/dL Hct (39.0-53.0) % MCV (80.0-100.0) fL MCHC (31.0-37.0) g/dL RDW (11.5-15.5) % Neutrophils # (1.3-7.7) k/uL Lymphocytes # (1.0-4.8) k/uL Pathologist Review APTT 55.9 H 75.2 H (22.0-30.0) sec Chloride 111 H (98-107) mmol/L Creatinine 0.61 L (0.66-1.25) mg/dL Total Protein 5.1 L (6.3-8.2) g/dL Albumin 2.8 L (3.5-5.0) g/dL Albumin (PEP) (3.80-4.90) g/dL Gamma Globulins (0.70-1.50) g/dL Free [place] LC, Quant (0.33-1.94) mg/dL Crossmatch 11/20/18 11/20/18 Range/Units 04:45 08:44 WBC 2.0 L (3.8-10.6) k/uL RBC 2.57 L (4.30-5.90) m/uL Hgb 7.7 L (13.0-17.5) gm/dL Hct 25.7 L (39.0-53.0) % MCV 100.1 H (80.0-100.0) fL MCHC 30.0 L (31.0-37.0) g/dL RDW 16.2 H (11.5-15.5) % Neutrophils # 0.8 L (1.3-7.7) k/uL Lymphocytes # 0.9 L (1.0-4.8) k/uL Pathologist Review APTT (22.0-30.0) sec Chloride (98-107) mmol/L Creatinine (0.66-1.25) mg/dL Total Protein (6.3-8.2) g/dL Albumin (3.5-5.0) g/dL Albumin (PEP) (3.80-4.90) g/dL Gamma Globulins (0.70-1.50) g/dL Free [place] LC, Quant (0.33-1.94) mg/dL Crossmatch See Detail Microbiology - Last 24 Hours (Table) 11/17/18 22:27 Urine Culture - Final Urine,Voided - Imaging and Cardiology Chest x-ray: report reviewed, image reviewed Assessment and Plan (1) Hypertension Current Visit: Yes Status: Chronic Code(s): I10 - ESSENTIAL (PRIMARY) HYPERTENSION SNOMED Code(s): 49083716 (2) Hyperlipidemia Current Visit: Yes Status: Chronic Code(s): E78.5 - HYPERLIPIDEMIA, UNSPECIFIED SNOMED Code(s): 11090213 (3) Tobacco dependence Current Visit: Yes Status: Chronic Code(s): F17.200 - NICOTINE DEPENDENCE, UNSPECIFIED, UNCOMPLICATED SNOMED Code(s): 12290911 (4) Family history of early CAD Current Visit: Yes Status: Chronic Code(s): Z82.49 - FAMILY HX OF ISCHEM HEART DIS AND OTH DIS OF THE CIRC SYS SNOMED Code(s): 121880939 (5) NSTEMI (non-ST elevated myocardial infarction) Current Visit: Yes Status: Acute Code(s): I21.4 - NON-ST ELEVATION (NSTEMI) MYOCARDIAL INFARCTION SNOMED Code(s): 32476417 Plan: 1. Given this morning's CBC results which remain stable from yesterday, and given the critical nature of the patient's coronary artery disease, we will take patient to the operating room today for urgent off-pump coronary artery bypass graft surgery utilizing the left internal mammary artery and endovascular vein harvest. Per hematology, bone marrow biopsy would not reveal any results until early part of next week, and the patient's critical coronary artery disease should take precedence at this time. 2. Patient is to receive 1 unit packed red blood cells preoperatively. 3. Continue aspirin, statin, beta john therapy. Continue IV heparin, discontinue applications consultant to the OR. 4. Encourage incentive spirometry use 10 times every hour while awake. 5. More recommendations to follow. Time with Patient: Greater than 30
--- NOTE | 2018-11-20 10:43 | P.PN ---
Subjective Progress Note Date: 11/20/18 Principal diagnosis: Non-ST segment elevation myocardial infarction, severe triple vessel disease This is a very pleasant 58-year-old gentleman who follows with Dr. Land as his primary care physician. He resides in [place]. He has a history of hypertension and chronic and ongoing tobacco dependence of approximate 40 years. This has a family history with of coronary artery disease with his father having a heart attack in his 50s and triple bypass surgery. He had presented to [facility] emergency room yesterday morning after awaking approximate 5 AM with chest pain. He was able to walk around and at times it down to rest and the pain seemed to subside. He then went to work the pain waxing and waning until 8:00 in the morning. Following that he did go into the [facility] emergency room. EKG there did not reveal any ST or T wave abnormalities. Chest x-ray showed no acute pulmonary process. He states he does not have any other significant symptoms. No diaphoresis, no nausea or vomiting, no radiation. No worsening shortness of breath. Repeat EKG revealed some nonspecific ST and T-wave abnormalities in the inferior leads. He was transferred here for the same last evening. Peak troponin last night was 4.25. White count 2.4. Hemoglobin 9.1. Creatinine 0.59. He did undergo cardiac catheterization today that revealed a calcified coronary arteries with severe triple-vessel disease with severe left main disease with 95% stenosis distally him a 95% left anterior descending artery, 99% stenosis of the left circumflex, 99% stenosis of the RCA.. Preserved left ventricular systolic function with ejection fraction 50%. He has been seen and evaluated by cardiothoracic surgery and the plan is for urgent coronary artery bypass grafting tomorrow morning with Dr. Medina. The patient is seen today in consultation in the intensive care unit. He is awake and alert in no acute distress. He has not been seen by a valance cutter in the past. He denies any shortness of breath or dyspnea on exertion in the outpatient setting. No oxygen. No inhalers in the past. Able to do his stated activities without any significant shortness of breath. Up until yesterday when the chest pain started he had been in his normal state of health. He is maintaining good O2 saturations in the mid 90s on room air. He' s been afebrile. Hemodynamically stable. He remains on heparin drip. 0.9 normal saline at 100 ML's per hour. Bedside spirometry revealed FEV1 value 79% of predicted. 11/18/2018: This 58-year-old male patient has triple-vessel disease and here patient is status post non-ST segment elevation myocardial infarction. The patient was supposed to undergo bypass surgery today. The surgery was canceled as the patient was found to have a low white cell count and his white cell count was at 1.7 with significant lymphocytosis. The patient's hemoglobin was also low at 8.1. As such, surgery was canceled and the patient was asked to have a hematology oncology evaluation prior to him undergoing his cardiac surgery. He is doing well. He has no specific complaints. No shortness of breath. He is fairly of any chest pain. No nausea vomiting or diarrhea. Is tolerating his diet. The plan is to still undergo the surgery after a hematologic evaluation is completed. He is afebrile. He is hemodynamically stable at this point in time. The patient is seen again today 11/19/2018 in follow-up in the intensive care unit. He is awake and alert in no acute distress. He has not had any further chest discomfort. He remains on a heparin drip. He has not had any shortness of breath cough or congestion. He is maintaining O2 saturations in the 90s on room air. The patient has been seen and evaluated by oncology. He feel the patient should proceed with coronary revascularization and if needed growth factors could be utilized. White count 2.1. Hemoglobin 7.6. Creatinine 0.60. On 11/20/2018 patient seen in follow-up in the intensive care unit. Awake and alert, in no acute distress. In sinus rhythm with a controlled rate, denies any difficulty breathing. Denies any chest pain. White blood cell count on this morning's labs is 2.0, hemoglobin is 7.7, patient is receiving a transfusion of a unit of packed red blood cells. Serum sodium is 138, potassium is 4.2, chloride is 111, B1 is 9 and creatinine 0.61, 50s were within normal limits. His morning's chest x-ray has been reviewed with Dr. Perla, and shows atelectasis in the right lower lobe. No fever or chills, vital signs are stable. She is working on his incentive spirometer, lung sounds are clear. IV iron transfusions were started per hematology. Patient is scheduled for urgent off-pump coronary artery bypass grafting today utilizing SANDOVAL and endovascular vein harvest. Hematology is closely following, no obvious source of bleeding. Objective - Vital Signs Vital signs: Vital Signs Temp 98.2 F 11/20/18 09:18 Pulse 58 L 11/20/18 09:18 Resp 28 H 11/20/18 09:18 BP 127/71 11/20/18 09:18 Pulse Ox 94 L 11/20/18 09:00 Intake & Output 11/19/18 11/20/18 11/20/18 18:59 06:59 18:59 Intake Total 1500 196.053 0 Output Total 2200 1470 0 Balance -700 -1273.947 0 Weight 64.4 kg Intake: IV 100 .9 100 100 Intake, IV Titration 200 196.053 Amount Heparin Sod,Pork in 0.45% 196.053 NaCl 25,000 unit In 0.45 % NaCl 1 250ml.bag @ 12 UNITS/KG/HR 7.24 mls/hr IV .Q24H [facility] Rx#: [id number] Magnesium Sulfate-D5w Pmx 100 1 gm In Dextrose/Water 1 100ml.bag @ 100 mls/hr IVPB Q1H [facility] Rx#: [id number] Sodium Ferric Gluconat- 100 Sucrose 125 mg In Sodium Chloride 0.9% 100 ml @ 100 mls/hr IVPB ONCE ONE Rx#:[id number] Oral 1200 Blood Product 0 Rc As-1 Unit 0 [id number] Output: Urine 2200 1470 0 Other: Voiding Method Urinal Urinal # Voids 0 # Bowel Movements 1 - Exam GENERAL EXAM: Alert, pleasant, 58-year-old white male, comfortable in no apparent distress. HEAD: Normocephalic/atraumatic. EYES: Normal reaction of pupils, equal size. Conjunctiva pink, sclera white. NOSE: Clear with pink turbinates. THROAT: No erythema or exudates. NECK: No masses, no JVD, no thyroid enlargement, no adenopathy. CHEST: No chest wall deformity. Symmetrical expansion. LUNGS: Equal air entry with no crackles, wheeze, rhonchi or dullness. CVS: Regular rate and rhythm, normal S1 and S2, no gallops, no murmurs, no rubs ABDOMEN: Soft, nontender. No hepatosplenomegaly, normal bowel sounds, no guarding or rigidity. EXTREMITIES: No clubbing, no edema, no cyanosis, 2+ pulses and upper and lower extremities. MUSCULOSKELETAL: Muscle strength and tone normal. SPINE: No scoliosis or deformity SKIN: No rashes CENTRAL NERVOUS SYSTEM: Alert and oriented -3. No focal deficits, tone is normal in all 4 extremities. PSYCHIATRIC: Alert and oriented -3. Appropriate affect. Intact judgment and insight. - Labs CBC & Chem 7: 11/20/18 04:45 11/20/18 04:45 Labs: Abnormal Lab Results - Last 24 Hours (Table) 11/17/18 11/18/18 11/19/18 Range/Units 21:07 10:42 05:57 WBC (3.8-10.6) k/uL RBC (4.30-5.90) m/uL Hgb (13.0-17.5) gm/dL Hct (39.0-53.0) % MCV (80.0-100.0) fL MCHC (31.0-37.0) g/dL RDW (11.5-15.5) % Neutrophils # (1.3-7.7) k/uL Lymphocytes # (1.0-4.8) k/uL Pathologist Review See comment A APTT (22.0-30.0) sec Chloride (98-107) mmol/L Creatinine (0.66-1.25) mg/dL Total Protein (6.3-8.2) g/dL Albumin (3.5-5.0) g/dL Albumin (PEP) 3.01 L (3.80-4.90) g/dL Gamma Globulins 0.67 L (0.70-1.50) g/dL Free [place] LC, Quant 2.46 H (0.33-1.94) mg/dL Crossmatch See Detail 11/19/18 11/20/18 11/20/18 Range/Units 12:17 04:45 04:45 WBC (3.8-10.6) k/uL RBC (4.30-5.90) m/uL Hgb (13.0-17.5) gm/dL Hct (39.0-53.0) % MCV (80.0-100.0) fL MCHC (31.0-37.0) g/dL RDW (11.5-15.5) % Neutrophils # (1.3-7.7) k/uL Lymphocytes # (1.0-4.8) k/uL Pathologist Review APTT 55.9 H 75.2 H (22.0-30.0) sec Chloride 111 H (98-107) mmol/L Creatinine 0.61 L (0.66-1.25) mg/dL Total Protein 5.1 L (6.3-8.2) g/dL Albumin 2.8 L (3.5-5.0) g/dL Albumin (PEP) (3.80-4.90) g/dL Gamma Globulins (0.70-1.50) g/dL Free [place] LC, Quant (0.33-1.94) mg/dL Crossmatch 11/20/18 11/20/18 Range/Units 04:45 08:44 WBC 2.0 L (3.8-10.6) k/uL RBC 2.57 L (4.30-5.90) m/uL Hgb 7.7 L (13.0-17.5) gm/dL Hct 25.7 L (39.0-53.0) % MCV 100.1 H (80.0-100.0) fL MCHC 30.0 L (31.0-37.0) g/dL RDW 16.2 H (11.5-15.5) % Neutrophils # 0.8 L (1.3-7.7) k/uL Lymphocytes # 0.9 L (1.0-4.8) k/uL Pathologist Review APTT (22.0-30.0) sec Chloride (98-107) mmol/L Creatinine (0.66-1.25) mg/dL Total Protein (6.3-8.2) g/dL Albumin (3.5-5.0) g/dL Albumin (PEP) (3.80-4.90) g/dL Gamma Globulins (0.70-1.50) g/dL Free [place] LC, Quant (0.33-1.94) mg/dL Crossmatch See Detail Assessment and Plan Plan: Assessment: #1 acute non-ST segment elevation myocardial infarction. #2 Significant triple-vessel coronary artery disease per cardiac catheterization today, plan is for urgent coronary artery revascularization in the morning 11/20/2018 #3 Chronic and ongoing tobacco dependence. FEV1 value 79% of predicted. #4 Hypertension. #5 Family history of previous myocardial infarction of his father in the 50s with CABG.. #6 Bycytopenia. Current hemoglobin 7.6. White count 2.1. Plan: Patient is calm and comfortable, not worsening shortness of breath or chest pain. Vital signs are stable. This morning's blood work has been reviewed, hematology is closely following, patient is receiving iron transfusions, and is receiving a unit of packed red blood cells this morning. Scheduled for off pump bypass grafting surgery today. We'll continue to closely follow, patient is high risk for surgery, however in view of his critical left main stenosis and multivessel coronary artery disease, patient will undergo surgical intervention today. Chest x-ray today has been reviewed, no acute process, some atelectasis in the right lower lobe. Vital signs are stable. I performed a history & physical examination of the patient and discussed their management with my nurse practitioner, Ele Galloway. I reviewed the nurse practitioner's note and agree with the documented findings and plan of care. Lung sounds are positive for clue breath sounds. The findings and the impression was discussed with the patient. I attest to the documentation by the nurse practitioner. Time with Patient: Greater than 30
[2018-11-20] MEDS ORDERED: CALCIUM CHLORIDE 100 MG/ML 10 ML SYRINGE IVP ONE (11:00)
[2018-11-20] MEDS ORDERED: HEPARIN SODIUM 1,000 UN/ML (10ML VL) IV ONE (11:00)
[2018-11-20] MEDS ORDERED: PROTAMINE SULFATE 250 MG in EMPTY BAG 1 BAG IV ONE (11:00)
[2018-11-20] MEDS ORDERED: PHENYLEPHRINE-0.9% NACL SYG 1 MG/10 ML SYRINGE IV ONE ×4 (11:00)
[2018-11-20] MEDS ORDERED: NOREPINEPHRINE 4 MG in SODIUM CHLORIDE 0.9% 250 ML IV SCH ×2 (11:00→23:00)
[2018-11-20] MEDS ORDERED: MAGNESIUM SULFATE SYG 4.06 MEQ/ML SYRINGE IV ONE (11:00)
[2018-11-20] MEDS ORDERED: PROPOFOL 1,000 MG in EMPTY BAG 1 BAG IV ONE (11:00)
[2018-11-20] MEDS ORDERED: ceFAZolin 2 GM in SODIUM CHLORIDE 0.9% 30 ML IVPB ONE (11:00)
[2018-11-20] MEDS ORDERED: NITROGLYCERIN-D5W PMX 25 MG/250 ML BTL IV ONE (11:00)
[2018-11-20] MEDS ORDERED: SODIUM BICARB 8.4% 50 ML SYR (1 MEQ/ML) IV ONE (11:00)
[2018-11-20] MEDS ORDERED: ceFAZolin 1,000 MG in SODIUM CHLORIDE 0.9% IRRIGATIO 1,000 ML IRRIGATION ONE (11:00)
[2018-11-20] MEDS ORDERED: HEPARIN SODIUM,PORCINE 5,000 UNIT in SODIUM CHLORIDE 0.9% 500 ML 500 ML IV ONE (11:00)
[2018-11-20] MEDS ORDERED: MANNITOL 25% 12.5 GM/50 ML VIAL IV ONE ×2 (11:00)
[2018-11-20] MEDS ORDERED: PHENYLEPHRINE 40 MG in SODIUM CHLORIDE 0.9% 250 ML IV ONE (11:00)
[2018-11-20] MEDS ORDERED: DEXTROSE 5% IN WATER 1,000 ML with POTASSIUM CHLORIDE 25 MEQ, SODIUM CHLORIDE 2.5MEQ/ML... IV SCH ×6 (11:00)
[2018-11-20] MEDS ORDERED: TRANEXAMIC ACID 2,000 MG in SODIUM CHLORIDE 0.9% 80 ML IV ONE (11:00)
[2018-11-20] MEDS ORDERED: PAPAVERINE 360 MG in SODIUM CHLORIDE 0.9% 90 ML IV ONE (11:00)
[2018-11-20] MEDS ORDERED: INSULIN REGULAR 100 UNIT in SODIUM CHLORIDE 0.9% 100 ML IV ONE (11:00)
[2018-11-20] MEDS ORDERED: NITROGLYCERIN-D5W PMX 50 MG in DEXTROSE/WATER 1 250ML.BAG IV ONE (11:00)
[2018-11-20] MEDS ORDERED: CHLORHEXIDINE GLUCONATE 15 ML CUP MUCOUS MEM ONE (11:00)
[2018-11-20] MEDS ORDERED: ALBUMIN HUMAN 25% 50 ML in EMPTY BAG 1 BAG IVPB ONE (11:00)
[2018-11-20] MEDS ORDERED: DEXTROSE 5% IN WATER 1,000 ML with POTASSIUM CHLORIDE 110 MEQ, MAGNESIUM SULFATE 16 MEQ... IV SCH ×5 (11:00)
[2018-11-20] MEDS ORDERED: CLEVIDIPINE BUTYRATE 25 MG in EMPTY BAG 1 BAG IV ONE (11:00)
[2018-11-20] MEDS ORDERED: ceFAZolin 2,000 MG in SODIUM CHLORIDE 0.9% 30 ML IVPB ONE (11:00)
[2018-11-20] MEDS ORDERED: ALBUMIN HUMAN 5% 500 ML in EMPTY BAG 1 BAG IVPB ONE (11:00)
[2018-11-20] MEDS ORDERED: PROTAMINE SULFATE 10 MG/ML 25 ML VIAL IV ONE (11:00)
[2018-11-20] MEDS ORDERED: SODIUM CHLORIDE 0.9% 250 ML BAG ONE (13:00)
[2018-11-20] MEDS ORDERED: ALBUMIN HUMAN 5% (12.5gm) 250 ML BOTTLE IVPB ONE (13:00)
[2018-11-20] MEDS ORDERED: MAGNESIUM SULFATE 4 MEQ/ML 10ML VIAL ONE (13:00)
[2018-11-20] MEDS ORDERED: HEPARIN SODIUM,PORCINE 10,000 UNIT/ML 1 ML VIAL ONE (13:00)
[2018-11-20] MEDS ORDERED: fentaNYL (PF) 50 MCG/ML 50 ML VIAL ONE (13:00)
[2018-11-20] MEDS ORDERED: fentaNYL (PF) 50 MCG/ML 2 ML AMP ONE (13:00)
[2018-11-20] MEDS ORDERED: SODIUM CHLORIDE 0.9% IRRIG 1,000 ML BTL IRRIGATION ONE (13:00)
[2018-11-20] MEDS ORDERED: TRANEXAMIC ACID 1,000 MG/10 ML VIAL ONE (13:00)
[2018-11-20] MEDS ORDERED: PROPOFOL 10 MG/ML 20 ML VIAL IV ONE (13:00)
[2018-11-20] MEDS ORDERED: PROTAMINE SULFATE 10 MG/ML 5 ML VIAL IV ONE (13:00)
[2018-11-20] MEDS ORDERED: MIDAZOLAM 2 MG/2 ML VIAL ONE (13:00)
[2018-11-20] MEDS ORDERED: VECURONIUM 10 MG VIAL IV ONE (13:00)
[2018-11-20] MEDS ORDERED: POTASSIUM CHLORIDE OPEN HEART 20 MEQ/50 ML BAG IVPB ONE (13:00)
--- NOTE | 2018-11-20 13:37 | P.PN ---
Subjective 58-year-old admitted for chest pain found have non-ST elevation microinfarction underwent recatheterization showed stenosis of LAD. Patient was evaluated by carotid thoracic surgery for coronary artery bypass grafting supposed to undergo surgery today but because of low white blood cell count, surgery was held and hematology was consulted for this. 11/19/2018 Patient was a valid bank hematology for bicytopenia and bicipital pain is believed secondary to his alcoholism and liver disease. And oncology cleared for surgery hopefully he'll go for coronary artery bypass grafting soon 11/20/2018 Patient will undergo coronary artery bypass grafting today Constitutional: Denied any fatigue denied any fever. Cardio vascular: denied any chest pain, palpitations Gastrointestinal denied any nausea vomiting Pulmonary: Denied any shortness of breath cough Neurologic denied any new focal deficits All inpatient medications were reviewed and appropriate changes in these medications as dictated in the interval history and assessment and plan. Objective - Vital Signs Vital signs: Vital Signs Temp 98.3 F 11/20/18 11:15 Pulse 56 L 11/20/18 11:15 Resp 14 11/20/18 11:15 BP 138/83 11/20/18 11:15 Pulse Ox 96 11/20/18 11:15 Intake & Output 11/19/18 11/20/18 11/20/18 18:59 06:59 18:59 Intake Total 1500 196.053 310 Output Total 2200 1470 0 Balance -700 -1273.947 310 Weight 64.4 kg Intake: IV 100 .9 100 100 Intake, IV Titration 200 196.053 Amount Heparin Sod,Pork in 0.45% 196.053 NaCl 25,000 unit In 0.45 % NaCl 1 250ml.bag @ 12 UNITS/KG/HR 7.24 mls/hr IV .Q24H [facility] Rx#: [id number] Magnesium Sulfate-D5w Pmx 100 1 gm In Dextrose/Water 1 100ml.bag @ 100 mls/hr IVPB Q1H [facility] Rx#: [id number] Sodium Ferric Gluconat- 100 Sucrose 125 mg In Sodium Chloride 0.9% 100 ml @ 100 mls/hr IVPB ONCE ONE Rx#:[id number] Oral 1200 Blood Product 310 Rc As-1 Unit 310 [id number] Output: Urine 2200 1470 0 Other: Voiding Method Urinal Urinal # Voids 0 # Bowel Movements 1 - Exam PHYSICAL EXAMINATION: GENERAL: The patient is alert and oriented x3, not in any acute distress. Well developed, well nourished. HEENT: Pupils are round and equally reacting to light. EOMI. No scleral icterus. No conjunctival pallor. Normocephalic, atraumatic. No pharyngeal erythema. No thyromegaly. CARDIOVASCULAR: S1 and S2 present. No murmurs, rubs, or gallops. PULMONARY: Chest is clear to auscultation, no wheezing or crackles. ABDOMEN: Soft, nontender, nondistended, normoactive bowel sounds. No palpable organomegaly. MUSCULOSKELETAL: No joint swelling or deformity. EXTREMITIES: No cyanosis, clubbing, or pedal edema. NEUROLOGICAL: Gross neurological examination did not reveal any focal deficits. SKIN: No rashes. - Labs CBC & Chem 7: 11/20/18 04:45 11/20/18 04:45 Labs: Abnormal Lab Results - Last 24 Hours (Table) 11/17/18 11/18/18 11/19/18 Range/Units 21:07 10:42 05:57 WBC (3.8-10.6) k/uL RBC (4.30-5.90) m/uL Hgb (13.0-17.5) gm/dL Hct (39.0-53.0) % MCV (80.0-100.0) fL MCHC (31.0-37.0) g/dL RDW (11.5-15.5) % Neutrophils # (1.3-7.7) k/uL Lymphocytes # (1.0-4.8) k/uL Pathologist Review See comment A APTT (22.0-30.0) sec Chloride (98-107) mmol/L Creatinine (0.66-1.25) mg/dL Total Protein (6.3-8.2) g/dL Albumin (3.5-5.0) g/dL Albumin (PEP) 3.01 L (3.80-4.90) g/dL Gamma Globulins 0.67 L (0.70-1.50) g/dL Crossmatch See Detail 11/20/18 11/20/18 11/20/18 Range/Units 04:45 04:45 04:45 WBC 2.0 L (3.8-10.6) k/uL RBC 2.57 L (4.30-5.90) m/uL Hgb 7.7 L (13.0-17.5) gm/dL Hct 25.7 L (39.0-53.0) % MCV 100.1 H (80.0-100.0) fL MCHC 30.0 L (31.0-37.0) g/dL RDW 16.2 H (11.5-15.5) % Neutrophils # 0.8 L (1.3-7.7) k/uL Lymphocytes # 0.9 L (1.0-4.8) k/uL Pathologist Review APTT 75.2 H (22.0-30.0) sec Chloride 111 H (98-107) mmol/L Creatinine 0.61 L (0.66-1.25) mg/dL Total Protein 5.1 L (6.3-8.2) g/dL Albumin 2.8 L (3.5-5.0) g/dL Albumin (PEP) (3.80-4.90) g/dL Gamma Globulins (0.70-1.50) g/dL Crossmatch 11/20/18 Range/Units 08:44 WBC (3.8-10.6) k/uL RBC (4.30-5.90) m/uL Hgb (13.0-17.5) gm/dL Hct (39.0-53.0) % MCV (80.0-100.0) fL MCHC (31.0-37.0) g/dL RDW (11.5-15.5) % Neutrophils # (1.3-7.7) k/uL Lymphocytes # (1.0-4.8) k/uL Pathologist Review APTT (22.0-30.0) sec Chloride (98-107) mmol/L Creatinine (0.66-1.25) mg/dL Total Protein (6.3-8.2) g/dL Albumin (3.5-5.0) g/dL Albumin (PEP) (3.80-4.90) g/dL Gamma Globulins (0.70-1.50) g/dL Crossmatch See Detail Assessment and Plan Plan: -Acute non-ST elevation myocardial infarction: Stenosis of LAD patient is on antiplatelet therapy beta john statin, CABG today -bicytopenia: Secondary to chronic liver disease most probably an from alcoholism, acute myocardial infarction may have frustrated significant drop in white blood cell count -Hypertension: -Nicotine dependence: Counseling was provided -Hyperlipidemia
[2018-11-20 14:02] LABS: ABG Base Excess -1.4 mmol/L; ABG HCO3 23 mmol/L (21-25); ABG Oxygen Saturation 98.2 % (94-97); ABG PCO2 38 mmHg (35-45); ABG PO2 313 mmHg (83-108); ABG Potassium Whole Blood 3.7 mmol/L (3.4-4.5); ABG Sodium Whole Blood 140 mmol/L (135-146); ABG TCO2 25 mmol/L (19-24)
[2018-11-20 15:09] LABS: ABG Base Excess -1.6 mmol/L; ABG HCO3 23 mmol/L (21-25); ABG Oxygen Saturation 99.4 % (94-97); ABG PCO2 37 mmHg (35-45); ABG PO2 235 mmHg (83-108); ABG Potassium Whole Blood 3.7 mmol/L (3.4-4.5); ABG Sodium Whole Blood 139 mmol/L (135-146); ABG TCO2 24 mmol/L (19-24)
[2018-11-20 15:34] LABS: ABG Base Excess -2.3 mmol/L; ABG HCO3 23 mmol/L (21-25); ABG Oxygen Saturation 99.1 % (94-97); ABG PCO2 39 mmHg (35-45); ABG PH 7.37 (7.35-7.45); ABG PO2 247 mmHg (83-108); ABG Potassium Whole Blood 3.8 mmol/L (3.4-4.5); ABG Sodium Whole Blood 140 mmol/L (135-146); ABG TCO2 24 mmol/L (19-24)
[2018-11-20 16:17] LABS: ABG Base Excess -3.4 mmol/L; ABG HCO3 22 mmol/L (21-25); ABG Oxygen Saturation 99.2 % (94-97); ABG PCO2 38 mmHg (35-45); ABG PH 7.36 (7.35-7.45); ABG PO2 257 mmHg (83-108); ABG Sodium Whole Blood 140 mmol/L (135-146); ABG TCO2 23 mmol/L (19-24)
[2018-11-20 16:52] LABS: ABG Base Excess -3.2 mmol/L; ABG HCO3 22 mmol/L (21-25); ABG Oxygen Saturation 98.7 % (94-97); ABG PCO2 39 mmHg (35-45); ABG PH 7.36 (7.35-7.45); ABG PO2 165 mmHg (83-108); ABG Potassium Whole Blood 4.1 mmol/L (3.4-4.5); ABG Sodium Whole Blood 139 mmol/L (135-146); ABG TCO2 23 mmol/L (19-24)
[2018-11-20] MEDS ORDERED: AMIODARONE 300 MG in DEXTROSE 5% IN WATER 250 ML IV PRN ×2 (17:26)
[2018-11-20] MEDS ORDERED: ONDANSETRON 4 MG/2 ML VIAL IVP PRN (17:26)
[2018-11-20] MEDS ORDERED: CALCIUM CHLORIDE 1 GM in SODIUM CHLORIDE 0.9% 50 ML IVPB PRN (17:26)
[2018-11-20] MEDS ORDERED: METOCLOPRAMIDE 5 MG/ML 2 ML VIAL IVP PRN (17:26)
[2018-11-20] MEDS ORDERED: BENZOCAINE/MENTHOL LOZENG 1 EACH LOZENGE MUCOUS MEM PRN (17:26)
[2018-11-20] MEDS ORDERED: DEXTROSE 5% IN WATER 100 ML with AMIODARONE 150 MG IV PRN (17:26)
[2018-11-20] MEDS ORDERED: IPRATROPIUM-ALBUTEROL 3 ML NEB INHALATION PRN (17:26)
[2018-11-20] MEDS ORDERED: Potassium Replacement Protocol 1 EACH MISC MISCELLANE PRN (17:26)
[2018-11-20] MEDS ORDERED: DEXTROSE 5% IV PRN ×2 (17:26)
[2018-11-20] MEDS ORDERED: AMIODARONE IV PRN ×2 (17:26)
[2018-11-20] MEDS ORDERED: WATER IV PRN ×2 (17:26)
[2018-11-20] MEDS ORDERED: NITROGLYCERIN-D5W PMX 50 MG in DEXTROSE/WATER 1 250ML.BAG IV SCH (17:26)
[2018-11-20] MEDS ORDERED: Phosphorus Replacement Protoco 1 EACH MISC MISCELLANE PRN (17:26)
[2018-11-20] MEDS ORDERED: Magnesium Replacement Protocol 1 EACH MISC MISCELLANE PRN (17:26)
[2018-11-20] MEDS ORDERED: INSULIN REGULAR 100 UNIT in SODIUM CHLORIDE 0.9% 100 ML IV SCH (17:26)
[2018-11-20] MEDS: PROPOFOL 1,000 MG in EMPTY BAG 1 BAG IV SCH ×2 (17:35→21:09)
[2018-11-20] MEDS: LACTATED RINGERS 1,000 ML IV SCH (17:35)
--- NOTE | 2018-11-20 17:54 | P.OP ---
Date of Procedure: 11/20/18 Preoperative Diagnosis: Coronary artery disease, subendocardial infarction. Postoperative Diagnosis: Same Procedure(s) Performed: Off-pump CABG 3 with SANDOVAL to the proximal LAD, saphenous vein graft to obtuse marginal, saphenous vein graft to posterior descending coronary artery with endovascular vein harvest and MARVIN by anesthesia. Sternal bone marrow biopsy Implants: None Anesthesia: GETA Surgeon: Preston Gaspar Salesperson [employer] #[employer]: Sumeet Merritt [employer]person [employer]: [place] Estimated Blood Loss (ml): 600 IV fluids (ml): 2,000 Urine output (ml): 500 Pathology: other (Bone marrow biopsy from sternum) Condition: stable Disposition: ICU Indications for Procedure: 58-year-old male who presented to an outlying facility with chest pain and evidence of subendocardial infarction. Cardiac catheterization showed severe left main disease proximal LAD stenosis very tight proximal circumflex stenosis and very tight right coronary artery stenosis. Urgent CABG was requested. The patient was severely anemic and neutropenic and hematology consult was requested. Hematology did not feel the patient had leukemia but was unwilling to treat him with Neupogen. The recommended proceeding with the heart surgery. After much discussion with oncology, critical care, cardiology, it was decided to proceed with CABG understanding increased risk due to the severe nature of the patient's coronary blockages which could be could not be addressed percutaneously due to severe calcification. Operative Findings: Good saphenous vein was obtained from the right thigh. Good SANDOVAL was obtained. The LAD was an excellent target was grafted proximally. Here was a 2.5 mm vessel. The obtuse marginal was heavily calcified proximally and we had and ran intramyocardially for a long distance with calcification before finally becoming soft. Here was a 1.5-1.75 mm vessel. The PDA was a large vessel with proximal disease. It was grafted beyond the disease. Here was a 2 mm vessel. The aorta was soft. It was not clamped. Ventricular function was normal. There was trivial MR present by MARVIN. Patient remained hemodynamically stable throughout. Description of Procedure: The patient was brought to the operating room, placed supine on the operating table, anesthetized and intubated. Induction proceeded smoothly. The anterior torso and bilateral lower extremities were sterilely prepped and draped. Endovascular vein harvest of the left thigh greater saphenous vein was performed. Simultaneously, sternotomy incision was performed. The left hemisternum was retracted upwards and the internal mammary artery harvested on a vascularized pedicle, left intact on its origin from the subclavian and divided distally. The left pleural space was drained with 32-Kisw[place]ili chest tube. Standard sternal retractor was placed and the pericardium was opened in the midline. The heart was exposed pericardial sutures. Patient was systemically heparinized a CTs were maintained greater than 250 during grafting. SANDOVAL to the LAD was performed first. The SANDOVAL was tunneled into the pericardium and prepared distally and appropriately to reach the proximal LAD. Proximal LAD was stabilized and opened. Blood flow was controlled with a 2 mm flow through. End to side anastomosis between the SANDOVAL and the LAD performed with running 8-0 Prolene suture. On completion anastomosis inflow was open. Graft was laid well without kinking and the fluid-filled well. SANDOVAL pedicle was tacked surrounding epicardium with 6-0 silk. Next the 2 proximal anastomoses were performed with passport anastomotic connectors. Veins were cut to appropriate length and loaded on passport connectors. PDA graft was placed below the sinotubular junction and the obtuse marginal graft was placed in the mid ascending aorta to the left of midline. Next the inferior wall of the heart was exposed. PDA graft was brought around the AV groove. The PDA was stabilized and dissected out proximally. The proximal disease was identified beyond this the vessel was soft. It was opened and blood flow control with a 2 mm flow through which was a tight fit. Saphenous vein was anastomosed inside fashion with running 7-0 Prolene suture. On completion anastomosis flow through was removed 50 probe the proximal distal portion anastomosis. Suture was tied with good result and hemostasis. Inflow was open. Heart was lowered in anatomic position. The graft was noted to lay well with good length. The heart was lowered into anatomic position and the left side of the heart was exposed. The obtuse marginal should open vessel was stabilized. It was heavily calcified. It disappeared intramyocardially. Dissection was carried along the vessel through the myocardium for distance of about 3 cm until we reached soft portion of the vessel. Several crossing veins were sutured with 6-0 silk to prevent excessive bleeding. Once we came to a soft portion of the vessel it was dissected out and opened. It was a 1.5-1.75 mm vessel. Blood flow was controlled 1.5 mm flow through. Saphenous vein was anastomosed in end-to-side fashion with running 7-0 Prolene suture. Completion anastomosis flow through was removed 50 probe the proximal distal portion anastomosis. Suture was tied with good result and hemostasis. Inflow was open of the graft was noted to lay well. Small amount of topical sealant was applied to the area (FloSeal) causes some mild oozing from the muscle dissection. This was checked later and noted to be hemostatic and the FloSeal was washed away. Heart was lowered into anatomic position and the heparin was reversed with protamine. Good hemostasis was verified. Chest was irrigated with antibiotic solution. Mediastinum was drained with a 36-Kisw[place]ili chest tube. Sternum was closed with 8 sternal wires. Fascia was closed with 0 Ethibond. Paced subcuticular layers were closed with layers of Vicryl suture. Dry sterile dressings were applied the patient was transferred to ICU in stable condition. No blood transfusions or inotropes were required.
[2018-11-20 17:59] LABS: ABG Base Excess -1.8 mmol/L; ABG HCO3 23 mmol/L (21-25); ABG Oxygen Saturation 99.3 % (94-97); ABG PCO2 40 mmHg (35-45); ABG PH 7.38 (7.35-7.45); ABG PO2 330 mmHg (83-108); ABG TCO2 25 mmol/L (19-24)
[2018-11-20] MEDS: ALBUMIN HUMAN 5% 250 ML in EMPTY BAG 1 BAG IVPB PRN ×2 (18:00→19:10)
[2018-11-20 18:10] LABS: Glucose,Whole Blood 101 mg/dL (75-99)
[2018-11-20 18:34] LABS: Ionized Calcium 5.1 mg/dL (4.5-5.3)
[2018-11-20 18:40] LABS: Anisocytosis Slight; Basophils % (A) 0 %; Eosinophils # (A) 0.1 k/uL (0-0.7); Eosinophils % (A) 4 %; HCT 24.1 % (39.0-53.0); HGB 7.8 gm/dL (13.0-17.5); Lymphocytes # (A) 1.3 k/uL (1.0-4.8); Lymphocytes % (A) 39 %; MCH 31.9 pg (25.0-35.0); MCHC 32.4 g/dL (31.0-37.0); MCV 98.3 fL (80.0-100.0); Macrocytosis Slight; Mean Platelet Volume 6.6; Monocytes # (A) 0.2 k/uL (0-1.0); Monocytes % (A) 6 %; Neutrophils # (A) 1.7 k/uL (1.3-7.7); Neutrophils % (A) 51 %; Platelet Count 216 k/uL (150-450); RBC 2.45 m/uL (4.30-5.90); RDW 16.5 % (11.5-15.5); WBC 3.3 k/uL (3.8-10.6)
[2018-11-20 18:41] LABS: INR 1.3 (<1.2); Partial Thromboplastin Time 32.2 sec (22.0-30.0); Prothrombin Time 13.3 sec (9.0-12.0)
[2018-11-20 18:46] LABS: ALT 30 U/L (21-72); AST 21 U/L (17-59); Albumin 2.5 g/dL (3.5-5.0); Alkaline Phosphatase 45 U/L (38-126); Anion Gap 5 mmol/L; Blood Urea Nitrogen 8 mg/dL (9-20); Calcium 8.1 mg/dL (8.4-10.2); Carbon Dioxide 22 mmol/L (22-30); Chloride 111 mmol/L (98-107); Glucose 87 mg/dL (74-99); Magnesium 2.1 mg/dL (1.6-2.3); Potassium 4.6 mmol/L (3.5-5.1); Sodium 138 mmol/L (137-145); Total Bilirubin 0.5 mg/dL (0.2-1.3); Total Protein 4.5 g/dL (6.3-8.2)
[2018-11-20 18:53] LABS: Glucose,Whole Blood 98 mg/dL (75-99)
--- NOTE | 2018-11-20 18:56 | XR ---
EXAMINATION TYPE: XR chest 1V portable DATE OF EXAM: 11/20/2018 COMPARISON: 11/20/2018 HISTORY: Postop cardiac surgery TECHNIQUE: Single frontal view of the chest is obtained. FINDINGS: [place] catheter terminates in the pulmonary outflow tract. Left-sided thoracostomy tube is place with no residual pneumothorax seen. New left midlung opacity may represent pulmonary contus ion or atelectasis. Linear right midlung opacities are seen representing atelectasis. Median sternoto my wires, mediastinal clips, and mediastinal drain are noted. Enteric tube is cephalad in position an d should be advanced at least 9 cm for optimal placement as the fenestrated portion is above the bernabe roesophageal junction. Endotracheal tube terminates below the distal clavicle heads just superior to the aortic arch, overall acceptable in placement. IMPRESSION: 1. Lines and tubes as described above. Advancement of the endotracheal tube approximately 1 to 2 cm f or optimal placement and enteric tube approximately 9 cm proximal placement are recommended. 2. Left thoracostomy tube with no residual pneumothorax. 3. Multifocal new airspace disease, likely atelectasis on the right and pulmonary contusion versus at electasis on the left.
[2018-11-20 19:40] LABS: HIV 1 AB Non-Reactive (Non-Reactive); HIV AB P24 Non-Reactive (Non-Reactive); HIV P24 AG Non-Reactive (Non-Reactive)
[2018-11-20 19:50] LABS: Glucose,Whole Blood 114 mg/dL (75-99)
[2018-11-20] MEDS ORDERED: IPRATROPIUM-ALBUTEROL 3 ML NEB INHALATION SCH (20:00)
[2018-11-20] MEDS ORDERED: DEXMEDETOMIDINE/0.9% NACL(PMX) 400 MCG in EMPTY BAG 1 BAG IV SCH (20:15)
[2018-11-20] MEDS: CLEVIDIPINE BUTYRATE 25 MG in EMPTY BAG 1 BAG IV SCH (20:54)
[2018-11-20 21:04] LABS: Glucose,Whole Blood 114 mg/dL (75-99)
[2018-11-20] MEDS: ACETAMINOPHEN IV (For NPO) 1,000 MG in EMPTY BAG 1 BAG IVPB SCH ×2 (21:10→23:29)
[2018-11-20 21:32] LABS: Anisocytosis Slight; Basophils % (A) 0 %; Eosinophils # (A) 0.1 k/uL (0-0.7); Eosinophils % (A) 2 %; HCT 26.2 % (39.0-53.0); HGB 8.5 gm/dL (13.0-17.5); Hypochromasia Slight; Lymphocytes # (A) 0.8 k/uL (1.0-4.8); Lymphocytes % (A) 20 %; MCHC 32.3 g/dL (31.0-37.0); Macrocytosis Slight; Mean Platelet Volume 6.7; Monocytes # (A) 0.3 k/uL (0-1.0); Monocytes % (A) 8 %; Neutrophils # (A) 2.7 k/uL (1.3-7.7); Neutrophils % (A) 69 %; Platelet Count 258 k/uL (150-450); RBC 2.64 m/uL (4.30-5.90); RDW 16.6 % (11.5-15.5); WBC 3.9 k/uL (3.8-10.6)
[2018-11-20 22:24] LABS: Glucose,Whole Blood 119 mg/dL (75-99)
[2018-11-20 23:11] LABS: Glucose,Whole Blood 118 mg/dL (75-99)
[2018-11-20] MEDS: ceFAZolin IN SWFI 2 GM/20 ML SYRINGE IVP SCH (23:29)
[2018-11-20] MEDS: HEPARIN SODIUM,PORCINE 5,000 UNIT/ML 1 ML VIAL SQ SCH (23:29)
[2018-11-20 23:30] LABS: Anisocytosis Slight; Basophils % (A) 0 %; Eosinophils # (A) 0.1 k/uL (0-0.7); Eosinophils % (A) 2 %; HCT 25.9 % (39.0-53.0); HGB 8.2 gm/dL (13.0-17.5); Hypochromasia Slight; Lymphocytes # (A) 0.8 k/uL (1.0-4.8); Lymphocytes % (A) 19 %; MCH 31.2 pg (25.0-35.0); MCHC 31.7 g/dL (31.0-37.0); MCV 98.4 fL (80.0-100.0); Macrocytosis Slight; Mean Platelet Volume 6.6; Monocytes # (A) 0.4 k/uL (0-1.0); Monocytes % (A) 9 %; Neutrophils # (A) 2.9 k/uL (1.3-7.7); Neutrophils % (A) 69 %; Platelet Count 258 k/uL (150-450); RBC 2.63 m/uL (4.30-5.90); RDW 16.5 % (11.5-15.5); WBC 4.2 k/uL (3.8-10.6)
[2018-11-21 00:04] LABS: Glucose,Whole Blood 119 mg/dL (75-99)
[2018-11-21 01:01] LABS: Glucose,Whole Blood 106 mg/dL (75-99)
[2018-11-21 01:54] LABS: Glucose,Whole Blood 116 mg/dL (75-99)
[2018-11-21 03:05] LABS: Glucose,Whole Blood 109 mg/dL (75-99)
[2018-11-21 03:56] LABS: Glucose,Whole Blood 117 mg/dL (75-99)
[2018-11-21 04:43] LABS: Anisocytosis Slight; Basophils % (A) 0 %; Eosinophils # (A) 0.1 k/uL (0-0.7); Eosinophils % (A) 2 %; HCT 21.2 % (39.0-53.0); Hypochromasia Slight; Lymphocytes # (A) 0.8 k/uL (1.0-4.8); Lymphocytes % (A) 26 %; MCH 31.5 pg (25.0-35.0); MCHC 31.5 g/dL (31.0-37.0); MCV 99.9 fL (80.0-100.0); Macrocytosis Slight; Mean Platelet Volume 6.6; Monocytes # (A) 0.3 k/uL (0-1.0); Monocytes % (A) 10 %; Neutrophils # (A) 1.9 k/uL (1.3-7.7); Neutrophils % (A) 61 %; Platelet Count 236 k/uL (150-450); RBC 2.13 m/uL (4.30-5.90); RDW 16.7 % (11.5-15.5); WBC 3.1 k/uL (3.8-10.6)
[2018-11-21 04:45] LABS: HGB 6.7 gm/dL (13.0-17.5)
[2018-11-21 04:47] LABS: INR 2.3 (<1.2); Partial Thromboplastin Time 55.5 sec (22.0-30.0); Prothrombin Time 22.8 sec (9.0-12.0)
[2018-11-21] MEDS: IPRATROPIUM-ALBUTEROL 3 ML NEB INHALATION SCH ×4 (05:03→19:20)
[2018-11-21] MEDS: ACETAMINOPHEN IV (For NPO) 1,000 MG in EMPTY BAG 1 BAG IVPB SCH ×3 (05:17→17:39)
[2018-11-21 05:37] LABS: Anisocytosis Slight; HCT 27.2 % (39.0-53.0); Hypochromasia Slight; MCH 30.8 pg (25.0-35.0); MCHC 31.2 g/dL (31.0-37.0); MCV 98.6 fL (80.0-100.0); Macrocytosis Slight; Mean Platelet Volume 7.3; Platelet Count 250 k/uL (150-450); RBC 2.76 m/uL (4.30-5.90); RDW 16.3 % (11.5-15.5); WBC 4.3 k/uL (3.8-10.6)
[2018-11-21 05:39] LABS: HGB 8.5 gm/dL (13.0-17.5)
[2018-11-21 05:45] LABS: INR 1.5 (<1.2); Partial Thromboplastin Time 31.8 sec (22.0-30.0); Prothrombin Time 15.5 sec (9.0-12.0)
[2018-11-21] MEDS: ALBUMIN HUMAN 5% 250 ML in EMPTY BAG 1 BAG IVPB PRN ×3 (06:22→19:15)
[2018-11-21 06:35] LABS: Glucose,Whole Blood 120 mg/dL (75-99)
[2018-11-21 06:55] LABS: Ionized Calcium 5.2 mg/dL (4.5-5.3)
[2018-11-21 07:03] LABS: ALT 31 U/L (21-72); AST 21 U/L (17-59); Albumin 2.9 g/dL (3.5-5.0); Alkaline Phosphatase 59 U/L (38-126); Anion Gap 7 mmol/L; Blood Urea Nitrogen 7 mg/dL (9-20); Calcium 8.7 mg/dL (8.4-10.2); Carbon Dioxide 23 mmol/L (22-30); Chloride 108 mmol/L (98-107); Glucose 92 mg/dL (74-99); Magnesium 1.9 mg/dL (1.6-2.3); Potassium 4.5 mmol/L (3.5-5.1); Sodium 138 mmol/L (137-145); Total Bilirubin 0.7 mg/dL (0.2-1.3); Total Protein 4.9 g/dL (6.3-8.2)
[2018-11-21] MEDS ORDERED: Magnesium Replacement Protocol 1 EACH MISC MISCELLANE PRN (07:12)
--- NOTE | 2018-11-21 07:38 | XR ---
EXAMINATION TYPE: XR chest 1V portable DATE OF EXAM: 11/21/2018 CLINICAL HISTORY: Difficulty breathing progress study. TECHNIQUE: Single AP portable upright view of the chest is obtained. COMPARISON: Chest x-ray from one day earlier FINDINGS: Stable position of large bore right IJ CVC with [place] catheter. The cardiomediastinal silhouette is stable. Bibasilar opacities persist with small bilateral pleural effusions. Left midlung subsegmental atelect asis is stable. No pneumothorax. Osseous structures are stable. IMPRESSION: 1. Stable position of support lines and tubes. 2. Stable bibasilar atelectasis and pleural effusions.
--- NOTE | 2018-11-21 08:42 | P.PN ---
Subjective Progress Note Date: 11/21/18 Principal diagnosis: Non-STEMI, subendocardial infarction, severe triple vessel coronary artery disease with left main disease. Previous medical history of hypertension, hyperlipidemia, tobacco dependence with preoperative FEV1 79% of predicted, and family history of early coronary artery disease. Preoperative bicytopenia of unknown origin. POD #1 urgent off-pump coronary artery bypass graft 3 with the left internal mammary artery to the proximal left anterior descending artery, reverse saphenous vein graft to the obtuse marginal artery, reverse saphenous vein graft to the posterior descending coronary artery with endovascular vein harvest of the left thigh and intraoperative transesophageal echocardiogram by anesthesia. Sternal bone marrow biopsy. Postoperative acute blood loss anemia, expected as patient was anemic preoperatively. The patient is currently sitting up in the recliner in the intensive care unit in no acute distress. He was successfully extubated this morning at 00:50. Does complain of post surgical incisional pain which is controlled on current medication regimen, denies shortness of breath. He was hypotensive last night requiring initiation of low-dose levo. No new complaints or concerns. Objective - Vital Signs Vital signs: Vital Signs Temp 98.6 F 11/21/18 04:00 Pulse 79 11/21/18 06:15 Resp 23 11/21/18 06:15 BP 143/80 11/21/18 06:15 Pulse Ox 93 L 11/21/18 06:15 Intake & Output 11/20/18 11/21/18 11/21/18 18:59 06:59 18:59 Intake Total 360.181 3802.283 Output Total 1480 1903 Balance -949.993 -492.717 Weight 64 kg Intake: IV 211 1240.0 ACETAMINOPHEN IV (For NPO 300 ) 1,000 mg In Empty Bag 1 bag @ 400 mls/hr IVPB Q6HR [facility] Rx#:[id number] Cardiac Output 50 150 Lactated Ringers 1,000 ml 100 650 @ 50 mls/hr IV .Q20H [facility] Rx#:[id number] Nitroglycerin-D5w Pmx 50 10 23.0 mg In Dextrose/Water 1 250ml.bag @ 5 MCG/MIN 1.5 mls/hr IV .Q24H [facility] Rx#: [id number] pressure bag 0.9 18 117 Intake, IV Titration 9.007 170.283 Amount Dexmedetomidine/0.9% NaCl 65.527 (Pmx) 400 mcg In Empty Bag 1 bag @ Titrate IV . Q0M [facility] Rx#:[id number] Norepinephrine 4 mg In 40.696 Sodium Chloride 0.9% 250 ml @ 0.05 MCG/KG/MIN 12. 26 mls/hr IV .[id number] [facility] Rx#:[id number] Propofol 1,000 mg In 9.007 64.060 Empty Bag 1 bag @ Titrate IV .Q0M AGN[facility] Rx#: [id number] Blood Product 310 Rc As-1 Unit 310 [id number] Output: Chest Tube Drainage 150 518 Left Pleural/Mediastinal 150 518 Urine 730 1385 Estimated Blood Loss 600 Other: Voiding Method Indwelling Catheter Indwelling Catheter ABP, PAP, CO, CI - Last Documented Arterial Blood Pressure 89/65 Pulmonary Artery Pressure 20/11 Cardiac Output 5.6 Cardiac Index 3.2 - Constitutional General appearance: Present: cooperative, no acute distress, thin - Respiratory Details: Lungs sounds diminished bilaterally. Respirations even, nonlabored. Currently on 4 L nasal cannula with oxygen saturation 93%. Able to achieve 750 mL on his incentive spirometry. Strong productive cough. Mediastinal/left pleural chest tube to continuous wall suction, 260 mL of thin serosanguineous drainage overnight, 620 mL since surgery, positive air leak. - Cardiovascular Details: S1, S2 present. Regular rate and rhythm, sinus rhythm on telemetry. Sternum stable. Palpable peripheral pulses bilaterally. No edema present. No calf pain or tenderness noted. Right internal jugular [place]/Cordis, right radial arterial line present. Last CO/CI 5.6/3.2 on 0.5 mcg/kg/m of levo. Heart hugger in place with patient demonstrating appropriate use. Antiembolism stockings, SCDs present. - Gastrointestinal Gastrointestinal Comment(s): Abdomen soft, nontender, nondistended. Hypoactive bowel sounds present 4 quadrants. Tolerating clear liquids. Negative flatus. - Genitourinary Genitourinary Comment(s): Smith present draining clear, yellow urine. Output 60-200 mL/h overnight. - Integumentary Integumentary Comment(s): Skin is warm and dry with evidence of good perfusion. Anterior chest incision well approximated and covered with dry intact dressing. Left lower extremity EVH site well approximated. - Neurologic Neurologic: Present: CNII-XII intact - Musculoskeletal Musculoskeletal: Present: strength equal bilaterally - Psychiatric Psychiatric: Present: A&O x's 3, appropriate affect, intact judgment & insight - Allied health notes Allied health notes reviewed: nursing - Labs CBC & Chem 7: 11/21/18 04:55 11/21/18 04:55 Labs: Abnormal Lab Results - Last 24 Hours (Table) 11/17/18 11/20/18 11/20/18 Range/Units 21:07 08:44 12:30 WBC (3.8-10.6) k/uL RBC (4.30-5.90) m/uL Hgb (13.0-17.5) gm/dL Hct (39.0-53.0) % RDW (11.5-15.5) % Lymphocytes # (1.0-4.8) k/uL PT (9.0-12.0) sec INR (<1.2) APTT (22.0-30.0) sec ABG pO2 235 H (83-108) mmHg ABG Total CO2 (19-24) mmol/L ABG O2 Saturation 99.4 H (94-97) % ABG Hematocrit 23 L (34.0-46.0) % ABG Glucose (75-99) mg/dL Hemoglobin 7.6 L (13.0-17.5) gm/dL Chloride (98-107) mmol/L BUN (9-20) mg/dL Creatinine (0.66-1.25) mg/dL POC Glucose (mg/dL) (75-99) mg/dL Calcium (8.4-10.2) mg/dL Total Protein (6.3-8.2) g/dL Albumin (3.5-5.0) g/dL Arterial Blood Glucose (75-99) mg/dL Crossmatch See Detail See Detail 11/20/18 11/20/18 11/20/18 Range/Units 14:01 15:34 16:17 WBC (3.8-10.6) k/uL RBC (4.30-5.90) m/uL Hgb (13.0-17.5) gm/dL Hct (39.0-53.0) % RDW (11.5-15.5) % Lymphocytes # (1.0-4.8) k/uL PT (9.0-12.0) sec INR (<1.2) APTT (22.0-30.0) sec ABG pO2 313 H 247 H 257 H (83-108) mmHg ABG Total CO2 25 H (19-24) mmol/L ABG O2 Saturation 98.2 H 99.1 H 99.2 H (94-97) % ABG Hematocrit 25 L 24 L 24 L (34.0-46.0) % ABG Glucose 104 H (75-99) mg/dL Hemoglobin 8.2 L 7.7 L 7.9 L (13.0-17.5) gm/dL Chloride (98-107) mmol/L BUN (9-20) mg/dL Creatinine (0.66-1.25) mg/dL POC Glucose (mg/dL) (75-99) mg/dL Calcium (8.4-10.2) mg/dL Total Protein (6.3-8.2) g/dL Albumin (3.5-5.0) g/dL Arterial Blood Glucose 104 H (75-99) mg/dL Crossmatch 11/20/18 11/20/18 11/20/18 Range/Units 16:52 17:49 17:54 WBC (3.8-10.6) k/uL RBC (4.30-5.90) m/uL Hgb (13.0-17.5) gm/dL Hct (39.0-53.0) % RDW (11.5-15.5) % Lymphocytes # (1.0-4.8) k/uL PT (9.0-12.0) sec INR (<1.2) APTT (22.0-30.0) sec ABG pO2 165 H 330 H (83-108) mmHg ABG Total CO2 25 H (19-24) mmol/L ABG O2 Saturation 98.7 H 99.3 H (94-97) % ABG Hematocrit 24 L (34.0-46.0) % ABG Glucose 102 H (75-99) mg/dL Hemoglobin 7.7 L (13.0-17.5) gm/dL Chloride (98-107) mmol/L BUN (9-20) mg/dL Creatinine (0.66-1.25) mg/dL POC Glucose (mg/dL) 101 H (75-99) mg/dL Calcium (8.4-10.2) mg/dL Total Protein (6.3-8.2) g/dL Albumin (3.5-5.0) g/dL Arterial Blood Glucose 102 H (75-99) mg/dL Crossmatch 11/20/18 11/20/18 11/20/18 Range/Units 17:56 17:56 17:56 WBC 3.3 L (3.8-10.6) k/uL RBC 2.45 L (4.30-5.90) m/uL Hgb 7.8 L (13.0-17.5) gm/dL Hct 24.1 L (39.0-53.0) % RDW 16.5 H (11.5-15.5) % Lymphocytes # (1.0-4.8) k/uL PT 13.3 H (9.0-12.0) sec INR 1.3 H (<1.2) APTT 32.2 H (22.0-30.0) sec ABG pO2 (83-108) mmHg ABG Total CO2 (19-24) mmol/L ABG O2 Saturation (94-97) % ABG Hematocrit (34.0-46.0) % ABG Glucose (75-99) mg/dL Hemoglobin (13.0-17.5) gm/dL Chloride 111 H (98-107) mmol/L BUN 8 L (9-20) mg/dL Creatinine 0.54 L (0.66-1.25) mg/dL POC Glucose (mg/dL) (75-99) mg/dL Calcium 8.1 L (8.4-10.2) mg/dL Total Protein 4.5 L (6.3-8.2) g/dL Albumin 2.5 L (3.5-5.0) g/dL Arterial Blood Glucose (75-99) mg/dL Crossmatch 11/20/18 11/20/18 11/20/18 Range/Units 19:49 21:02 21:02 WBC (3.8-10.6) k/uL RBC 2.64 L (4.30-5.90) m/uL Hgb 8.5 L (13.0-17.5) gm/dL Hct 26.2 L (39.0-53.0) % RDW 16.6 H (11.5-15.5) % Lymphocytes # 0.8 L (1.0-4.8) k/uL PT (9.0-12.0) sec INR (<1.2) APTT (22.0-30.0) sec ABG pO2 (83-108) mmHg ABG Total CO2 (19-24) mmol/L ABG O2 Saturation (94-97) % ABG Hematocrit (34.0-46.0) % ABG Glucose (75-99) mg/dL Hemoglobin (13.0-17.5) gm/dL Chloride (98-107) mmol/L BUN (9-20) mg/dL Creatinine (0.66-1.25) mg/dL POC Glucose (mg/dL) 114 H 114 H (75-99) mg/dL Calcium (8.4-10.2) mg/dL Total Protein (6.3-8.2) g/dL Albumin (3.5-5.0) g/dL Arterial Blood Glucose (75-99) mg/dL Crossmatch 11/20/18 11/20/18 11/20/18 Range/Units 22:22 23:09 23:10 WBC (3.8-10.6) k/uL RBC 2.63 L (4.30-5.90) m/uL Hgb 8.2 L (13.0-17.5) gm/dL Hct 25.9 L (39.0-53.0) % RDW 16.5 H (11.5-15.5) % Lymphocytes # 0.8 L (1.0-4.8) k/uL PT (9.0-12.0) sec INR (<1.2) APTT (22.0-30.0) sec ABG pO2 (83-108) mmHg ABG Total CO2 (19-24) mmol/L ABG O2 Saturation (94-97) % ABG Hematocrit (34.0-46.0) % ABG Glucose (75-99) mg/dL Hemoglobin (13.0-17.5) gm/dL Chloride (98-107) mmol/L BUN (9-20) mg/dL Creatinine (0.66-1.25) mg/dL POC Glucose (mg/dL) 119 H 118 H (75-99) mg/dL Calcium (8.4-10.2) mg/dL Total Protein (6.3-8.2) g/dL Albumin (3.5-5.0) g/dL Arterial Blood Glucose (75-99) mg/dL Crossmatch 11/21/18 11/21/18 11/21/18 Range/Units 00:03 01:00 01:53 WBC (3.8-10.6) k/uL RBC (4.30-5.90) m/uL Hgb (13.0-17.5) gm/dL Hct (39.0-53.0) % RDW (11.5-15.5) % Lymphocytes # (1.0-4.8) k/uL PT (9.0-12.0) sec INR (<1.2) APTT (22.0-30.0) sec ABG pO2 (83-108) mmHg ABG Total CO2 (19-24) mmol/L ABG O2 Saturation (94-97) % ABG Hematocrit (34.0-46.0) % ABG Glucose (75-99) mg/dL Hemoglobin (13.0-17.5) gm/dL Chloride (98-107) mmol/L BUN (9-20) mg/dL Creatinine (0.66-1.25) mg/dL POC Glucose (mg/dL) 119 H 106 H 116 H (75-99) mg/dL Calcium (8.4-10.2) mg/dL Total Protein (6.3-8.2) g/dL Albumin (3.5-5.0) g/dL Arterial Blood Glucose (75-99) mg/dL Crossmatch 11/21/18 11/21/18 11/21/18 Range/Units 03:02 03:50 03:50 WBC 3.1 L (3.8-10.6) k/uL RBC 2.13 L (4.30-5.90) m/uL Hgb 6.7 L* D (13.0-17.5) gm/dL Hct 21.2 L (39.0-53.0) % RDW 16.7 H (11.5-15.5) % Lymphocytes # 0.8 L (1.0-4.8) k/uL PT 22.8 H (9.0-12.0) sec INR 2.3 H (<1.2) APTT 55.5 H (22.0-30.0) sec ABG pO2 (83-108) mmHg ABG Total CO2 (19-24) mmol/L ABG O2 Saturation (94-97) % ABG Hematocrit (34.0-46.0) % ABG Glucose (75-99) mg/dL Hemoglobin (13.0-17.5) gm/dL Chloride (98-107) mmol/L BUN (9-20) mg/dL Creatinine (0.66-1.25) mg/dL POC Glucose (mg/dL) 109 H (75-99) mg/dL Calcium (8.4-10.2) mg/dL Total Protein (6.3-8.2) g/dL Albumin (3.5-5.0) g/dL Arterial Blood Glucose (75-99) mg/dL Crossmatch 11/21/18 11/21/18 11/21/18 Range/Units 03:55 04:55 04:55 WBC (3.8-10.6) k/uL RBC 2.76 L (4.30-5.90) m/uL Hgb 8.5 L D (13.0-17.5) gm/dL Hct 27.2 L (39.0-53.0) % RDW 16.3 H (11.5-15.5) % Lymphocytes # (1.0-4.8) k/uL PT (9.0-12.0) sec INR (<1.2) APTT (22.0-30.0) sec ABG pO2 (83-108) mmHg ABG Total CO2 (19-24) mmol/L ABG O2 Saturation (94-97) % ABG Hematocrit (34.0-46.0) % ABG Glucose (75-99) mg/dL Hemoglobin (13.0-17.5) gm/dL Chloride 108 H (98-107) mmol/L BUN 7 L (9-20) mg/dL Creatinine (0.66-1.25) mg/dL POC Glucose (mg/dL) 117 H (75-99) mg/dL Calcium (8.4-10.2) mg/dL Total Protein 4.9 L (6.3-8.2) g/dL Albumin 2.9 L (3.5-5.0) g/dL Arterial Blood Glucose (75-99) mg/dL Crossmatch 11/21/18 11/21/18 Range/Units 04:55 06:33 WBC (3.8-10.6) k/uL RBC (4.30-5.90) m/uL Hgb (13.0-17.5) gm/dL Hct (39.0-53.0) % RDW (11.5-15.5) % Lymphocytes # (1.0-4.8) k/uL PT 15.5 H (9.0-12.0) sec INR 1.5 H (<1.2) APTT 31.8 H (22.0-30.0) sec ABG pO2 (83-108) mmHg ABG Total CO2 (19-24) mmol/L ABG O2 Saturation (94-97) % ABG Hematocrit (34.0-46.0) % ABG Glucose (75-99) mg/dL Hemoglobin (13.0-17.5) gm/dL Chloride (98-107) mmol/L BUN (9-20) mg/dL Creatinine (0.66-1.25) mg/dL POC Glucose (mg/dL) 120 H (75-99) mg/dL Calcium (8.4-10.2) mg/dL Total Protein (6.3-8.2) g/dL Albumin (3.5-5.0) g/dL Arterial Blood Glucose (75-99) mg/dL Crossmatch - Imaging and Cardiology Chest x-ray: report reviewed, image reviewed Assessment and Plan (1) Hypertension Current Visit: Yes Status: Chronic Code(s): I10 - ESSENTIAL (PRIMARY) HYPERTENSION SNOMED Code(s): 14018359 (2) Hyperlipidemia Current Visit: Yes Status: Chronic Code(s): E78.5 - HYPERLIPIDEMIA, UNSPECIFIED SNOMED Code(s): 11304102 (3) Tobacco dependence Current Visit: Yes Status: Chronic Code(s): F17.200 - NICOTINE DEPENDENCE, UNSPECIFIED, UNCOMPLICATED SNOMED Code(s): 97914299 (4) Family history of early CAD Current Visit: Yes Status: Chronic Code(s): Z82.49 - FAMILY HX OF ISCHEM HEART DIS AND OTH DIS OF THE CIRC SYS SNOMED Code(s): 190486490 (5) NSTEMI (non-ST elevated myocardial infarction) Current Visit: Yes Status: Acute Code(s): I21.4 - NON-ST ELEVATION (NSTEMI) MYOCARDIAL INFARCTION SNOMED Code(s): 84291083 Plan: 1. Continue aspirin, statin, Plavix, beta john therapy. Will increase beta john therapy as tolerated. Discontinue IV nitro. 2. Wean levo as tolerated. 3. Wean O2 as tolerated. Encourage incentive spirometry is 10 times every hour while awake. 4. Encourage smoking cessation. 5. Bronchodilators per pulmonology. 6. Increase activity, ambulate as tolerated. PT/OT/cardiac rehab following. 7. Will discontinue [place] once patient is off IV levo. Connect Cordis to continuous CVP monitoring. 8. Keep chest tubes, Smith for another 24 hours. 9. Will monitor daily labs and x-rays. Electrolyte replacement per protocol. No further transfusions at this time. 10. Pain controlled current medication regimen. Toradol added. 11. Insulin management per primary care service. 12. GI prophylaxis with Protonix, DVT prophylaxis with subcu heparin, SCDs. 13. Bone marrow biopsy completed from sternum, await results. 14. More recommendations to follow. Time with Patient: Greater than 30
[2018-11-21] MEDS ORDERED: PANTOPRAZOLE 40 MG/10 ML VIAL IVP SCH (09:00)
[2018-11-21] MEDS: MAGNESIUM SULFATE-D5W PMX 1 GM in DEXTROSE/WATER 1 100ML.BAG IVPB SCH ×2 (09:18→10:52)
[2018-11-21] MEDS: HEPARIN SODIUM,PORCINE 5,000 UNIT/ML 1 ML VIAL SQ SCH ×2 (09:18→15:36)
[2018-11-21] MEDS: ceFAZolin IN SWFI 2 GM/20 ML SYRINGE IVP SCH ×2 (09:18→17:39)
[2018-11-21] MEDS: ASPIRIN 325 MG TAB PO SCH (09:19)
[2018-11-21] MEDS: ATORVASTATIN 40 MG TAB PO SCH (09:19)
[2018-11-21] MEDS: KETOROLAC 30 MG/ML 1 ML VIAL IVP SCH ×4 (09:19→23:49)
[2018-11-21] MEDS: MUPIROCIN 2% OINT 22 GM TUBE NASAL SCH ×2 (09:20→21:23)
--- NOTE | 2018-11-21 10:33 | P.PN ---
Subjective Progress Note Date: 11/21/18 The patient underwent CABG yesterday. So far he appears to have tolerated the procedure well with. He required 1 unit of blood. No unusual bleeding noted.. No fevers or chills. Objective - Vital Signs Vital signs: Vital Signs Temp 37.7 F L 11/21/18 07:45 Pulse 83 11/21/18 10:00 Resp 22 11/21/18 10:00 BP 119/67 11/21/18 10:00 Pulse Ox 96 11/21/18 10:00 Intake & Output 11/20/18 11/21/18 11/21/18 18:59 06:59 18:59 Intake Total 097.678 3788.283 197 Output Total 1480 1903 195 Balance -949.993 -492.717 2 Weight 64 kg Intake: IV 211 1240.0 197 ACETAMINOPHEN IV (For NPO 300 ) 1,000 mg In Empty Bag 1 bag @ 400 mls/hr IVPB Q6HR [facility] Rx#:[id number] Cardiac Output 50 150 20 Lactated Ringers 1,000 ml 100 650 150 @ 20 mls/hr IV .Q24H [facility] Rx#:[id number] Nitroglycerin-D5w Pmx 50 10 23.0 mg In Dextrose/Water 1 250ml.bag @ 5 MCG/MIN 1.5 mls/hr IV .Q24H [facility] Rx#: [id number] pressure bag 0.9 18 117 27 Intake, IV Titration 9.007 170.283 Amount Dexmedetomidine/0.9% NaCl 65.527 (Pmx) 400 mcg In Empty Bag 1 bag @ Titrate IV . Q0M [facility] Rx#:[id number] Norepinephrine 4 mg In 40.696 Sodium Chloride 0.9% 250 ml @ 0.05 MCG/KG/MIN 12. 26 mls/hr IV .[id number] [facility] Rx#:[id number] Propofol 1,000 mg In 9.007 64.060 Empty Bag 1 bag @ Titrate IV .Q0M [facility] Rx#: [id number] Blood Product 310 Rc As-1 Unit 310 [id number] Output: Chest Tube Drainage 150 518 120 Left Pleural/Mediastinal 150 518 120 Urine 730 1385 75 Estimated Blood Loss 600 Other: Voiding Method Indwelling Catheter Indwelling Catheter ABP, PAP, CO, CI - Last Documented Arterial Blood Pressure 62/51 Pulmonary Artery Pressure 25/8 Cardiac Output 7.4 Cardiac Index 4.3 - Constitutional General appearance: Present: no acute distress - EENT Eyes: Present: EOMI ENT: Present: hearing grossly normal, normal oropharynx - Respiratory Respiratory: bilateral: diminished - Cardiovascular Rhythm: regular Heart sounds: normal: S1, S2 - Gastrointestinal General gastrointestinal: Present: decreased bowel sounds, soft - Integumentary Integumentary: Present: normal - Neurologic Neurologic: Present: CNII-XII intact - Musculoskeletal Musculoskeletal: Present: generalized weakness, strength equal bilaterally - Psychiatric Psychiatric: Present: A&O x's 3, appropriate affect - Labs CBC & Chem 7: 11/21/18 04:55 11/21/18 04:55 Labs: Abnormal Lab Results - Last 24 Hours (Table) 11/17/18 11/20/18 11/20/18 Range/Units 21:07 08:44 12:30 WBC (3.8-10.6) k/uL RBC (4.30-5.90) m/uL Hgb (13.0-17.5) gm/dL Hct (39.0-53.0) % RDW (11.5-15.5) % Lymphocytes # (1.0-4.8) k/uL PT (9.0-12.0) sec INR (<1.2) APTT (22.0-30.0) sec ABG pO2 235 H (83-108) mmHg ABG Total CO2 (19-24) mmol/L ABG O2 Saturation 99.4 H (94-97) % ABG Hematocrit 23 L (34.0-46.0) % ABG Glucose (75-99) mg/dL Hemoglobin 7.6 L (13.0-17.5) gm/dL Chloride (98-107) mmol/L BUN (9-20) mg/dL Creatinine (0.66-1.25) mg/dL POC Glucose (mg/dL) (75-99) mg/dL Calcium (8.4-10.2) mg/dL Total Protein (6.3-8.2) g/dL Albumin (3.5-5.0) g/dL Arterial Blood Glucose (75-99) mg/dL Crossmatch See Detail See Detail 11/20/18 11/20/1819 Range/Units 14:01 15:34 16:17 WBC (3.8-10.6) k/uL RBC (4.30-5.90) m/uL Hgb (13.0-17.5) gm/dL Hct (39.0-53.0) % RDW (11.5-15.5) % Lymphocytes # (1.0-4.8) k/uL PT (9.0-12.0) sec INR (<1.2) APTT (22.0-30.0) sec ABG pO2 313 H 247 H 257 H (83-108) mmHg ABG Total CO2 25 H (19-24) mmol/L ABG O2 Saturation 98.2 H 99.1 H 99.2 H (94-97) % ABG Hematocrit 25 L 24 L 24 L (34.0-46.0) % ABG Glucose 104 H (75-99) mg/dL Hemoglobin 8.2 L 7.7 L 7.9 L (13.0-17.5) gm/dL Chloride (98-107) mmol/L BUN (9-20) mg/dL Creatinine (0.66-1.25) mg/dL POC Glucose (mg/dL) (75-99) mg/dL Calcium (8.4-10.2) mg/dL Total Protein (6.3-8.2) g/dL Albumin (3.5-5.0) g/dL Arterial Blood Glucose 104 H (75-99) mg/dL Crossmatch 11/20/18 11/20/18 11/20/18 Range/Units 16:52 17:49 17:54 WBC (3.8-10.6) k/uL RBC (4.30-5.90) m/uL Hgb (13.0-17.5) gm/dL Hct (39.0-53.0) % RDW (11.5-15.5) % Lymphocytes # (1.0-4.8) k/uL PT (9.0-12.0) sec INR (<1.2) APTT (22.0-30.0) sec ABG pO2 165 H 330 H (83-108) mmHg ABG Total CO2 25 H (19-24) mmol/L ABG O2 Saturation 98.7 H 99.3 H (94-97) % ABG Hematocrit 24 L (34.0-46.0) % ABG Glucose 102 H (75-99) mg/dL Hemoglobin 7.7 L (13.0-17.5) gm/dL Chloride (98-107) mmol/L BUN (9-20) mg/dL Creatinine (0.66-1.25) mg/dL POC Glucose (mg/dL) 101 H (75-99) mg/dL Calcium (8.4-10.2) mg/dL Total Protein (6.3-8.2) g/dL Albumin (3.5-5.0) g/dL Arterial Blood Glucose 102 H (75-99) mg/dL Crossmatch 11/20/18 11/20/18 11/20/18 Range/Units 17:56 17:56 17:56 WBC 3.3 L (3.8-10.6) k/uL RBC 2.45 L (4.30-5.90) m/uL Hgb 7.8 L (13.0-17.5) gm/dL Hct 24.1 L (39.0-53.0) % RDW 16.5 H (11.5-15.5) % Lymphocytes # (1.0-4.8) k/uL PT 13.3 H (9.0-12.0) sec INR 1.3 H (<1.2) APTT 32.2 H (22.0-30.0) sec ABG pO2 (83-108) mmHg ABG Total CO2 (19-24) mmol/L ABG O2 Saturation (94-97) % ABG Hematocrit (34.0-46.0) % ABG Glucose (75-99) mg/dL Hemoglobin (13.0-17.5) gm/dL Chloride 111 H (98-107) mmol/L BUN 8 L (9-20) mg/dL Creatinine 0.54 L (0.66-1.25) mg/dL POC Glucose (mg/dL) (75-99) mg/dL Calcium 8.1 L (8.4-10.2) mg/dL Total Protein 4.5 L (6.3-8.2) g/dL Albumin 2.5 L (3.5-5.0) g/dL Arterial Blood Glucose (75-99) mg/dL Crossmatch 11/20/18 11/20/18 11/20/18 Range/Units 19:49 21:02 21:02 WBC (3.8-10.6) k/uL RBC 2.64 L (4.30-5.90) m/uL Hgb 8.5 L (13.0-17.5) gm/dL Hct 26.2 L (39.0-53.0) % RDW 16.6 H (11.5-15.5) % Lymphocytes # 0.8 L (1.0-4.8) k/uL PT (9.0-12.0) sec INR (<1.2) APTT (22.0-30.0) sec ABG pO2 (83-108) mmHg ABG Total CO2 (19-24) mmol/L ABG O2 Saturation (94-97) % ABG Hematocrit (34.0-46.0) % ABG Glucose (75-99) mg/dL Hemoglobin (13.0-17.5) gm/dL Chloride (98-107) mmol/L BUN (9-20) mg/dL Creatinine (0.66-1.25) mg/dL POC Glucose (mg/dL) 114 H 114 H (75-99) mg/dL Calcium (8.4-10.2) mg/dL Total Protein (6.3-8.2) g/dL Albumin (3.5-5.0) g/dL Arterial Blood Glucose (75-99) mg/dL Crossmatch 11/20/18 11/20/18 11/20/18 Range/Units 22:22 23:09 23:10 WBC (3.8-10.6) k/uL RBC 2.63 L (4.30-5.90) m/uL Hgb 8.2 L (13.0-17.5) gm/dL Hct 25.9 L (39.0-53.0) % RDW 16.5 H (11.5-15.5) % Lymphocytes # 0.8 L (1.0-4.8) k/uL PT (9.0-12.0) sec INR (<1.2) APTT (22.0-30.0) sec ABG pO2 (83-108) mmHg ABG Total CO2 (19-24) mmol/L ABG O2 Saturation (94-97) % ABG Hematocrit (34.0-46.0) % ABG Glucose (75-99) mg/dL Hemoglobin (13.0-17.5) gm/dL Chloride (98-107) mmol/L BUN (9-20) mg/dL Creatinine (0.66-1.25) mg/dL POC Glucose (mg/dL) 119 H 118 H (75-99) mg/dL Calcium (8.4-10.2) mg/dL Total Protein (6.3-8.2) g/dL Albumin (3.5-5.0) g/dL Arterial Blood Glucose (75-99) mg/dL Crossmatch 11/21/18 11/21/18 11/21/18 Range/Units 00:03 01:00 01:53 WBC (3.8-10.6) k/uL RBC (4.30-5.90) m/uL Hgb (13.0-17.5) gm/dL Hct (39.0-53.0) % RDW (11.5-15.5) % Lymphocytes # (1.0-4.8) k/uL PT (9.0-12.0) sec INR (<1.2) APTT (22.0-30.0) sec ABG pO2 (83-108) mmHg ABG Total CO2 (19-24) mmol/L ABG O2 Saturation (94-97) % ABG Hematocrit (34.0-46.0) % ABG Glucose (75-99) mg/dL Hemoglobin (13.0-17.5) gm/dL Chloride (98-107) mmol/L BUN (9-20) mg/dL Creatinine (0.66-1.25) mg/dL POC Glucose (mg/dL) 119 H 106 H 116 H (75-99) mg/dL Calcium (8.4-10.2) mg/dL Total Protein (6.3-8.2) g/dL Albumin (3.5-5.0) g/dL Arterial Blood Glucose (75-99) mg/dL Crossmatch 11/21/18 11/21/18 11/21/18 Range/Units 03:02 03:50 03:50 WBC 3.1 L (3.8-10.6) k/uL RBC 2.13 L (4.30-5.90) m/uL Hgb 6.7 L* D (13.0-17.5) gm/dL Hct 21.2 L (39.0-53.0) % RDW 16.7 H (11.5-15.5) % Lymphocytes # 0.8 L (1.0-4.8) k/uL PT 22.8 H (9.0-12.0) sec INR 2.3 H (<1.2) APTT 55.5 H (22.0-30.0) sec ABG pO2 (83-108) mmHg ABG Total CO2 (19-24) mmol/L ABG O2 Saturation (94-97) % ABG Hematocrit (34.0-46.0) % ABG Glucose (75-99) mg/dL Hemoglobin (13.0-17.5) gm/dL Chloride (98-107) mmol/L BUN (9-20) mg/dL Creatinine (0.66-1.25) mg/dL POC Glucose (mg/dL) 109 H (75-99) mg/dL Calcium (8.4-10.2) mg/dL Total Protein (6.3-8.2) g/dL Albumin (3.5-5.0) g/dL Arterial Blood Glucose (75-99) mg/dL Crossmatch 11/21/18 11/21/18 11/21/18 Range/Units 03:55 04:55 04:55 WBC (3.8-10.6) k/uL RBC 2.76 L (4.30-5.90) m/uL Hgb 8.5 L D (13.0-17.5) gm/dL Hct 27.2 L (39.0-53.0) % RDW 16.3 H (11.5-15.5) % Lymphocytes # (1.0-4.8) k/uL PT (9.0-12.0) sec INR (<1.2) APTT (22.0-30.0) sec ABG pO2 (83-108) mmHg ABG Total CO2 (19-24) mmol/L ABG O2 Saturation (94-97) % ABG Hematocrit (34.0-46.0) % ABG Glucose (75-99) mg/dL Hemoglobin (13.0-17.5) gm/dL Chloride 108 H (98-107) mmol/L BUN 7 L (9-20) mg/dL Creatinine (0.66-1.25) mg/dL POC Glucose (mg/dL) 117 H (75-99) mg/dL Calcium (8.4-10.2) mg/dL Total Protein 4.9 L (6.3-8.2) g/dL Albumin 2.9 L (3.5-5.0) g/dL Arterial Blood Glucose (75-99) mg/dL Crossmatch 11/21/18 11/21/18 Range/Units 04:55 06:33 WBC (3.8-10.6) k/uL RBC (4.30-5.90) m/uL Hgb (13.0-17.5) gm/dL Hct (39.0-53.0) % RDW (11.5-15.5) % Lymphocytes # (1.0-4.8) k/uL PT 15.5 H (9.0-12.0) sec INR 1.5 H (<1.2) APTT 31.8 H (22.0-30.0) sec ABG pO2 (83-108) mmHg ABG Total CO2 (19-24) mmol/L ABG O2 Saturation (94-97) % ABG Hematocrit (34.0-46.0) % ABG Glucose (75-99) mg/dL Hemoglobin (13.0-17.5) gm/dL Chloride (98-107) mmol/L BUN (9-20) mg/dL Creatinine (0.66-1.25) mg/dL POC Glucose (mg/dL) 120 H (75-99) mg/dL Calcium (8.4-10.2) mg/dL Total Protein (6.3-8.2) g/dL Albumin (3.5-5.0) g/dL Arterial Blood Glucose (75-99) mg/dL Crossmatch Assessment and Plan (1) Bicytopenia Narrative/Plan: Lab workup so far is negative other than some iron deficiency. The patient had a sternal biopsy done during surgery yesterday, that was sent for bone marrow examination. The case was discussed with the pathology. A full hematopathology exam would not be possible without an aspirate, including flow cytometry and genetic studies. However morphologic evaluation, and staining for excess abnormal population such as blasts could potentially provide some additional information. They will proceed with the safe Case also discussed with the CTS, and the patient. If there is felt to be a definite abnormal cell population, then bone marrow aspiration biopsy will be planned once the patient is more medically. Hemoglobin has improved into the eighth plus range after one unit of blood. . Counts are satisfactory. W BC has also shown a spontaneous improvement into the 4000 range. Continue to monitor. Afebrile be seen drops acutely, then growth factors will be utilized in the immediate postop setting. Transfuse PRBC as needed Current Visit: Yes Status: Acute Code(s): D75.89 - OTHER SPECIFIED DISEASES OF BLOOD AND BLOOD-FORMING ORGANS SNOMED Code(s): 355504249 (2) NSTEMI (non-ST elevated myocardial infarction) Narrative/Plan: Status post CABG. Patient appears to have tolerated the procedure well without no significant complications so far Current Visit: Yes Status: Acute Code(s): I21.4 - NON-ST ELEVATION (NSTEMI) MYOCARDIAL INFARCTION SNOMED Code(s): 98325302
--- NOTE | 2018-11-21 11:02 | PN ---
PROGRESS NOTE Mr. Acosta is a 58-year-old male who presented with cha-EB-rhrljhe-elevation myocardial infarction with severe triple-vessel coronary artery disease. He underwent coronary artery bypass grafting yesterday. He is doing well this morning. Extubated, sitting up in the chair, hemodynamically stable. He is on low-dose norepinephrine. He has no malignant arrhythmia. He has no palpitations. He received a SANDOVAL to LAD with saphenous vein graft to the obtuse marginal branch and to PDA. He continues to be at this time on aspirin once a day, Lipitor 40 mg daily, Plavix 75 mg daily, metoprolol tartrate 12.5 mg twice a day. PHYSICAL EXAMINATION: Blood pressure 116/60 with a heart rate in the 80s. LUNGS: Clear with a few crackles at the bases. HEART: Regular rate and rhythm. S1, S2. No rub appreciated. ABDOMEN: Soft, nontender. EXTREMITIES: No edema. LAB DATA/IMAGING: Hemoglobin of 8.5. His white blood cell count is up to 4.3. BUN and creatinine are 7 and 0.69. Chest x-ray revealed mild atelectasis. IMPRESSION: 1. Status post coronary artery bypass grafting. 2. Bicytopenia, improving. 3. History of tobacco use. 4. History of hypertension. RECOMMENDATIONS: From the cardiac standpoint, he is stable. We will hopefully try to wean the IV norepinephrine today and increase his level of activity. Depending on his progress, further recommendations will be made. MMODL / IJN: [id number] /
[2018-11-21 12:18] LABS: Glucose,Whole Blood 133 mg/dL (75-99)
[2018-11-21] MEDS: INSULIN ASPART (NovoLOG) 100 UNIT/ML VIAL SQ SCH ×3 (12:21→21:23)
[2018-11-21 14:04] VITALS: BMI 22.1
--- NOTE | 2018-11-21 14:18 | P.PN ---
Subjective Progress Note Date: 11/21/18 On today's evaluation of 11/21/2018, the patient is postop day #1 and the patient underwent an urgent off-pump coronary artery bypass surgery with three- vessel bypass. The patient was weaned off the mechanical ventilator and the patient was extubated yesterday without any major difficulties. The patient is doing extremely well for now. He is awake and alert. He is requiring some low- dose norepinephrine infusion for hemodynamic support as the systolic blood pressure was in the lower side. He is producing adequate amount of urine output. The patient has left pleural and mediastinal chest tube. The output from both chest tubes have been around 580 mL over the past 24 hours. The patient's cardiac output of 5.6. Index is at 3.2. Chest x-ray showing routine postoperative changes without any evidence of pneumothorax. I'm also noting that the patient IS IMPROVED. HIS WHITE CELL COUNT IS UP TO 4.3. HE WAS STABLE AT 8.5. The patient has received a total of 4 units of packed RBC and 2 units of platelets. Objective - Vital Signs Vital signs: Vital Signs Temp 98.9 F 11/21/18 12:00 Pulse 105 H 11/21/18 12:00 Resp 26 H 11/21/18 12:00 BP 120/67 11/21/18 12:00 Pulse Ox 95 11/21/18 12:00 Intake & Output 11/20/18 11/21/18 11/21/18 18:59 06:59 18:59 Intake Total 924.233 0082.283 662 Output Total 1480 1903 347 Balance -949.993 -492.717 315 Weight 64 kg 64 kg Intake: IV 211 1240.0 662 ACETAMINOPHEN IV (For NPO 300 ) 1,000 mg In Empty Bag 1 bag @ 400 mls/hr IVPB Q6HR [facility] Rx#:[id number] Albumin Human 25% 50 ml 250 In Empty Bag 1 bag @ 100 mls/hr IVPB ONCE ONE Rx#: [id number] Cardiac Output 50 150 20 Lactated Ringers 1,000 ml 100 650 250 @ 20 mls/hr IV .Q24H [facility] Rx#:[id number] Magnesium Sulfate-D5w Pmx 100 1 gm In Dextrose/Water 1 100ml.bag @ 100 mls/hr IVPB Q1H [facility] Rx#: [id number] Nitroglycerin-D5w Pmx 50 10 23.0 mg In Dextrose/Water 1 250ml.bag @ 5 MCG/MIN 1.5 mls/hr IV .Q24H [facility] Rx#: [id number] pressure bag 0.9 18 117 42 Intake, IV Titration 9.007 170.283 Amount Dexmedetomidine/0.9% NaCl 65.527 (Pmx) 400 mcg In Empty Bag 1 bag @ Titrate IV . Q0M [facility] Rx#:[id number] Norepinephrine 4 mg In 40.696 Sodium Chloride 0.9% 250 ml @ 0.05 MCG/KG/MIN 12. 26 mls/hr IV .[id number] [facility] Rx#:[id number] Propofol 1,000 mg In 9.007 64.060 Empty Bag 1 bag @ Titrate IV .Q0M [facility] Rx#: [id number] Blood Product 310 Rc As-1 Unit 310 [id number] Output: Chest Tube Drainage 150 518 180 Left Pleural/Mediastinal 150 518 180 Urine 730 1385 167 Estimated Blood Loss 600 Other: Voiding Method Indwelling Catheter Indwelling Catheter ABP, PAP, CO, CI - Last Documented Arterial Blood Pressure 62/51 Pulmonary Artery Pressure 24/7 Cardiac Output 7.4 Cardiac Index 4.3 - Exam - Constitutional General appearance: Present: cooperative, no acute distress, thin - Respiratory Details: Lungs sounds diminished bilaterally. Respirations even, nonlabored. Currently on 4 L nasal cannula with oxygen saturation 93%. Able to achieve 750 mL on his incentive spirometry. Strong productive cough. Mediastinal/left pleural chest tube to continuous wall suction, 260 mL of thin serosanguineous drainage overnight, 620 mL since surgery, positive air leak. - Cardiovascular Details: S1, S2 present. Regular rate and rhythm, sinus rhythm on telemetry. Sternum stable. Palpable peripheral pulses bilaterally. No edema present. No calf pain or tenderness noted. Right internal jugular [place], right radial arterial line present. Last CO/CI 5.6/3.2 on 0.5 mcg/kg/m of levo. Heart hugger in place with patient demonstrating appropriate use. Antiembolism stockings, SCDs present. - Gastrointestinal Gastrointestinal Comment(s): Abdomen soft, nontender, nondistended. Hypoactive bowel sounds present 4 quadrants. Tolerating clear liquids. Negative flatus. - Genitourinary Genitourinary Comment(s): Smith present draining clear, yellow urine. Output 60-200 mL/h overnight. - Integumentary Integumentary Comment(s): Skin is warm and dry with evidence of good perfusion. Anterior chest incision well approximated and covered with dry intact dressing. Left lower extremity EVH site well approximated. - Neurologic Neurologic: Present: CNII-XII intact - Musculoskeletal Musculoskeletal: Present: strength equal bilaterally - Psychiatric Psychiatric: Present: A&O x's 3, appropriate affect, intact judgment & insight - Labs CBC & Chem 7: 11/21/18 04:55 11/21/18 04:55 Labs: Abnormal Lab Results - Last 24 Hours (Table) 11/20/18 11/20/18 11/20/18 Range/Units 08:44 12:30 14:01 WBC (3.8-10.6) k/uL RBC (4.30-5.90) m/uL Hgb (13.0-17.5) gm/dL Hct (39.0-53.0) % RDW (11.5-15.5) % Lymphocytes # (1.0-4.8) k/uL PT (9.0-12.0) sec INR (<1.2) APTT (22.0-30.0) sec ABG pO2 235 H 313 H (83-108) mmHg ABG Total CO2 25 H (19-24) mmol/L ABG O2 Saturation 99.4 H 98.2 H (94-97) % ABG Hematocrit 23 L 25 L (34.0-46.0) % ABG Glucose (75-99) mg/dL Hemoglobin 7.6 L 8.2 L (13.0-17.5) gm/dL Chloride (98-107) mmol/L BUN (9-20) mg/dL Creatinine (0.66-1.25) mg/dL POC Glucose (mg/dL) (75-99) mg/dL Calcium (8.4-10.2) mg/dL Total Protein (6.3-8.2) g/dL Albumin (3.5-5.0) g/dL Arterial Blood Glucose (75-99) mg/dL Crossmatch See Detail 11/20/18 11/20/18 11/20/18 Range/Units 15:34 16:17 16:52 WBC (3.8-10.6) k/uL RBC (4.30-5.90) m/uL Hgb (13.0-17.5) gm/dL Hct (39.0-53.0) % RDW (11.5-15.5) % Lymphocytes # (1.0-4.8) k/uL PT (9.0-12.0) sec INR (<1.2) APTT (22.0-30.0) sec ABG pO2 247 H 257 H 165 H (83-108) mmHg ABG Total CO2 (19-24) mmol/L ABG O2 Saturation 99.1 H 99.2 H 98.7 H (94-97) % ABG Hematocrit 24 L 24 L 24 L (34.0-46.0) % ABG Glucose 104 H 102 H (75-99) mg/dL Hemoglobin 7.7 L 7.9 L 7.7 L (13.0-17.5) gm/dL Chloride (98-107) mmol/L BUN (9-20) mg/dL Creatinine (0.66-1.25) mg/dL POC Glucose (mg/dL) (75-99) mg/dL Calcium (8.4-10.2) mg/dL Total Protein (6.3-8.2) g/dL Albumin (3.5-5.0) g/dL Arterial Blood Glucose 104 H 102 H (75-99) mg/dL Crossmatch 11/20/18 11/20/18 11/20/18 Range/Units 17:49 17:54 17:56 WBC 3.3 L (3.8-10.6) k/uL RBC 2.45 L (4.30-5.90) m/uL Hgb 7.8 L (13.0-17.5) gm/dL Hct 24.1 L (39.0-53.0) % RDW 16.5 H (11.5-15.5) % Lymphocytes # (1.0-4.8) k/uL PT (9.0-12.0) sec INR (<1.2) APTT (22.0-30.0) sec ABG pO2 330 H (83-108) mmHg ABG Total CO2 25 H (19-24) mmol/L ABG O2 Saturation 99.3 H (94-97) % ABG Hematocrit (34.0-46.0) % ABG Glucose (75-99) mg/dL Hemoglobin (13.0-17.5) gm/dL Chloride (98-107) mmol/L BUN (9-20) mg/dL Creatinine (0.66-1.25) mg/dL POC Glucose (mg/dL) 101 H (75-99) mg/dL Calcium (8.4-10.2) mg/dL Total Protein (6.3-8.2) g/dL Albumin (3.5-5.0) g/dL Arterial Blood Glucose (75-99) mg/dL Crossmatch 11/20/18 11/20/18 11/20/18 Range/Units 17:56 17:56 19:49 WBC (3.8-10.6) k/uL RBC (4.30-5.90) m/uL Hgb (13.0-17.5) gm/dL Hct (39.0-53.0) % RDW (11.5-15.5) % Lymphocytes # (1.0-4.8) k/uL PT 13.3 H (9.0-12.0) sec INR 1.3 H (<1.2) APTT 32.2 H (22.0-30.0) sec ABG pO2 (83-108) mmHg ABG Total CO2 (19-24) mmol/L ABG O2 Saturation (94-97) % ABG Hematocrit (34.0-46.0) % ABG Glucose (75-99) mg/dL Hemoglobin (13.0-17.5) gm/dL Chloride 111 H (98-107) mmol/L BUN 8 L (9-20) mg/dL Creatinine 0.54 L (0.66-1.25) mg/dL POC Glucose (mg/dL) 114 H (75-99) mg/dL Calcium 8.1 L (8.4-10.2) mg/dL Total Protein 4.5 L (6.3-8.2) g/dL Albumin 2.5 L (3.5-5.0) g/dL Arterial Blood Glucose (75-99) mg/dL Crossmatch 02/05/3111/20/18 11/20/18 Range/Units 21:02 21:02 22:22 WBC (3.8-10.6) k/uL RBC 2.64 L (4.30-5.90) m/uL Hgb 8.5 L (13.0-17.5) gm/dL Hct 26.2 L (39.0-53.0) % RDW 16.6 H (11.5-15.5) % Lymphocytes # 0.8 L (1.0-4.8) k/uL PT (9.0-12.0) sec INR (<1.2) APTT (22.0-30.0) sec ABG pO2 (83-108) mmHg ABG Total CO2 (19-24) mmol/L ABG O2 Saturation (94-97) % ABG Hematocrit (34.0-46.0) % ABG Glucose (75-99) mg/dL Hemoglobin (13.0-17.5) gm/dL Chloride (98-107) mmol/L BUN (9-20) mg/dL Creatinine (0.66-1.25) mg/dL POC Glucose (mg/dL) 114 H 119 H (75-99) mg/dL Calcium (8.4-10.2) mg/dL Total Protein (6.3-8.2) g/dL Albumin (3.5-5.0) g/dL Arterial Blood Glucose (75-99) mg/dL Crossmatch 11/20/18 11/20/18 11/21/18 Range/Units 23:09 23:10 00:03 WBC (3.8-10.6) k/uL RBC 2.63 L (4.30-5.90) m/uL Hgb 8.2 L (13.0-17.5) gm/dL Hct 25.9 L (39.0-53.0) % RDW 16.5 H (11.5-15.5) % Lymphocytes # 0.8 L (1.0-4.8) k/uL PT (9.0-12.0) sec INR (<1.2) APTT (22.0-30.0) sec ABG pO2 (83-108) mmHg ABG Total CO2 (19-24) mmol/L ABG O2 Saturation (94-97) % ABG Hematocrit (34.0-46.0) % ABG Glucose (75-99) mg/dL Hemoglobin (13.0-17.5) gm/dL Chloride (98-107) mmol/L BUN (9-20) mg/dL Creatinine (0.66-1.25) mg/dL POC Glucose (mg/dL) 118 H 119 H (75-99) mg/dL Calcium (8.4-10.2) mg/dL Total Protein (6.3-8.2) g/dL Albumin (3.5-5.0) g/dL Arterial Blood Glucose (75-99) mg/dL Crossmatch 11/21/18 11/21/18 11/21/18 Range/Units 01:00 01:53 03:02 WBC (3.8-10.6) k/uL RBC (4.30-5.90) m/uL Hgb (13.0-17.5) gm/dL Hct (39.0-53.0) % RDW (11.5-15.5) % Lymphocytes # (1.0-4.8) k/uL PT (9.0-12.0) sec INR (<1.2) APTT (22.0-30.0) sec ABG pO2 (83-108) mmHg ABG Total CO2 (19-24) mmol/L ABG O2 Saturation (94-97) % ABG Hematocrit (34.0-46.0) % ABG Glucose (75-99) mg/dL Hemoglobin (13.0-17.5) gm/dL Chloride (98-107) mmol/L BUN (9-20) mg/dL Creatinine (0.66-1.25) mg/dL POC Glucose (mg/dL) 106 H 116 H 109 H (75-99) mg/dL Calcium (8.4-10.2) mg/dL Total Protein (6.3-8.2) g/dL Albumin (3.5-5.0) g/dL Arterial Blood Glucose (75-99) mg/dL Crossmatch 11/21/18 11/21/18 11/21/18 Range/Units 03:50 03:50 03:55 WBC 3.1 L (3.8-10.6) k/uL RBC 2.13 L (4.30-5.90) m/uL Hgb 6.7 L* D (13.0-17.5) gm/dL Hct 21.2 L (39.0-53.0) % RDW 16.7 H (11.5-15.5) % Lymphocytes # 0.8 L (1.0-4.8) k/uL PT 22.8 H (9.0-12.0) sec INR 2.3 H (<1.2) APTT 55.5 H (22.0-30.0) sec ABG pO2 (83-108) mmHg ABG Total CO2 (19-24) mmol/L ABG O2 Saturation (94-97) % ABG Hematocrit (34.0-46.0) % ABG Glucose (75-99) mg/dL Hemoglobin (13.0-17.5) gm/dL Chloride (98-107) mmol/L BUN (9-20) mg/dL Creatinine (0.66-1.25) mg/dL POC Glucose (mg/dL) 117 H (75-99) mg/dL Calcium (8.4-10.2) mg/dL Total Protein (6.3-8.2) g/dL Albumin (3.5-5.0) g/dL Arterial Blood Glucose (75-99) mg/dL Crossmatch 11/21/18 11/21/18 11/21/18 Range/Units 04:55 04:55 04:55 WBC (3.8-10.6) k/uL RBC 2.76 L (4.30-5.90) m/uL Hgb 8.5 L D (13.0-17.5) gm/dL Hct 27.2 L (39.0-53.0) % RDW 16.3 H (11.5-15.5) % Lymphocytes # (1.0-4.8) k/uL PT 15.5 H (9.0-12.0) sec INR 1.5 H (<1.2) APTT 31.8 H (22.0-30.0) sec ABG pO2 (83-108) mmHg ABG Total CO2 (19-24) mmol/L ABG O2 Saturation (94-97) % ABG Hematocrit (34.0-46.0) % ABG Glucose (75-99) mg/dL Hemoglobin (13.0-17.5) gm/dL Chloride 108 H (98-107) mmol/L BUN 7 L (9-20) mg/dL Creatinine (0.66-1.25) mg/dL POC Glucose (mg/dL) (75-99) mg/dL Calcium (8.4-10.2) mg/dL Total Protein 4.9 L (6.3-8.2) g/dL Albumin 2.9 L (3.5-5.0) g/dL Arterial Blood Glucose (75-99) mg/dL Crossmatch 11/21/18 11/21/18 Range/Units 06:33 12:16 WBC (3.8-10.6) k/uL RBC (4.30-5.90) m/uL Hgb (13.0-17.5) gm/dL Hct (39.0-53.0) % RDW (11.5-15.5) % Lymphocytes # (1.0-4.8) k/uL PT (9.0-12.0) sec INR (<1.2) APTT (22.0-30.0) sec ABG pO2 (83-108) mmHg ABG Total CO2 (19-24) mmol/L ABG O2 Saturation (94-97) % ABG Hematocrit (34.0-46.0) % ABG Glucose (75-99) mg/dL Hemoglobin (13.0-17.5) gm/dL Chloride (98-107) mmol/L BUN (9-20) mg/dL Creatinine (0.66-1.25) mg/dL POC Glucose (mg/dL) 120 H 133 H (75-99) mg/dL Calcium (8.4-10.2) mg/dL Total Protein (6.3-8.2) g/dL Albumin (3.5-5.0) g/dL Arterial Blood Glucose (75-99) mg/dL Crossmatch Assessment and Plan Plan: Impression: #1 acute non-ST segment elevation myocardial infarction. The patient has severe atherosclerotic heart disease with triple-vessel involvement #2 coronary artery bypass surgery and the patient underwent an off-pump three- vessel bypass and daily and the is postop day #1. The patient was weaned off the mechanical ventilator within the major difficulties and the patient was extubated. Hemodynamically stable. He is on low-dose norepinephrine infusion. The chest tubes are still in place. #3 Chronic and ongoing tobacco dependence. FEV1 value 79% of predicted. #4 Hypertension. #5 Family history of previous myocardial infarction of his father in the 50s with CABG. #6 anemia #7 leukopenia with lymphocytosis. The white cell count has improved and the patient's absolute neutrophil count is about thousand. Plan Continue aspirin and Plavix and beta blockers. Wean down the FiO2 as tolerated to maintain a saturation above 90%. Encourage use of incentive spirometer. Wean off levo fed and monitor the blood pressure. The cardiac output and index are appropriate for now. He has adequate pain control. Bone marrow biopsy and aspirate of the lifting intraoperatively and this will be sent for pathologic evaluation. We'll keep the patient in ICU for another 24 hours. Insulin management for blood sugar control. We'll follow.
[2018-11-21] MEDS: METOPROLOL TARTRATE 12.5 MG TAB PO SCH ×2 (15:36→21:22)
--- NOTE | 2018-11-21 16:25 | P.PN ---
Subjective 58-year-old admitted for chest pain found have non-ST elevation microinfarction underwent recatheterization showed stenosis of LAD. Patient was evaluated by carotid thoracic surgery for coronary artery bypass grafting supposed to undergo surgery today but because of low white blood cell count, surgery was held and hematology was consulted for this. 11/19/2018 Patient was a valid bank hematology for bicytopenia and bicipital pain is believed secondary to his alcoholism and liver disease. And oncology cleared for surgery hopefully he'll go for coronary artery bypass grafting soon 11/20/2018 Patient will undergo coronary artery bypass grafting today 11/21/2018 Agent is status post coronary artery bypass grafting postoperative day one patient is on low dose of norepinephrine which is being weaned off good urine output patient has 2 rest use 1 left lower 1 mediastinal with significant output from the chest tubes received about 4 PRBC transfusion Constitutional: Denied any fatigue denied any fever. Cardio vascular: denied any chest pain, palpitations Gastrointestinal denied any nausea vomiting Pulmonary: Denied any shortness of breath cough Neurologic denied any new focal deficits All inpatient medications were reviewed and appropriate changes in these medications as dictated in the interval history and assessment and plan. Objective - Vital Signs Vital signs: Vital Signs Temp 98.9 F 11/21/18 12:00 Pulse 92 11/21/18 16:00 Resp 23 11/21/18 16:00 BP 116/85 11/21/18 16:00 Pulse Ox 95 11/21/18 16:00 Intake & Output 11/20/18 11/21/18 11/21/18 18:59 06:59 18:59 Intake Total 036.266 6425.283 830 Output Total 1480 1903 637 Balance -949.993 -492.717 193 Weight 64 kg 64 kg Intake: IV 211 1240.0 830 ACETAMINOPHEN IV (For NPO 300 ) 1,000 mg In Empty Bag 1 bag @ 400 mls/hr IVPB Q6HR [facility] Rx#:[id number] Albumin Human 25% 50 ml 250 In Empty Bag 1 bag @ 100 mls/hr IVPB ONCE ONE Rx#: [id number] Cardiac Output 50 150 20 Lactated Ringers 1,000 ml 100 650 400 @ 20 mls/hr IV .Q24H [facility] Rx#:[id number] Magnesium Sulfate-D5w Pmx 100 1 gm In Dextrose/Water 1 100ml.bag @ 100 mls/hr IVPB Q1H [facility] Rx#: [id number] Nitroglycerin-D5w Pmx 50 10 23.0 mg In Dextrose/Water 1 250ml.bag @ 5 MCG/MIN 1.5 mls/hr IV .Q24H [facility] Rx#: [id number] pressure bag 0.9 18 117 60 Intake, IV Titration 9.007 170.283 Amount Dexmedetomidine/0.9% NaCl 65.527 (Pmx) 400 mcg In Empty Bag 1 bag @ Titrate IV . Q0M [facility] Rx#:[id number] Norepinephrine 4 mg In 40.696 Sodium Chloride 0.9% 250 ml @ 0.05 MCG/KG/MIN 12. 26 mls/hr IV .[id number] [facility] Rx#:[id number] Propofol 1,000 mg In 9.007 64.060 Empty Bag 1 bag @ Titrate IV .Q0M [facility] Rx#: [id number] Blood Product 310 Rc As-1 Unit 310 [id number] Output: Chest Tube Drainage 150 518 210 Left Pleural/Mediastinal 150 518 210 Urine 730 1385 427 Estimated Blood Loss 600 Other: Voiding Method Indwelling Catheter Indwelling Catheter ABP, PAP, CO, CI - Last Documented Arterial Blood Pressure 62/51 Pulmonary Artery Pressure 24/7 Cardiac Output 7.4 Cardiac Index 4.3 - Exam PHYSICAL EXAMINATION: GENERAL: The patient is alert and oriented x3, not in any acute distress. Well developed, well nourished. HEENT: Pupils are round and equally reacting to light. EOMI. No scleral icterus. No conjunctival pallor. Normocephalic, atraumatic. No pharyngeal erythema. No thyromegaly. CARDIOVASCULAR: S1 and S2 present. No murmurs, rubs, or gallops. PULMONARY: Chest is clear to auscultation, no wheezing or crackles. Chest tubes as mentioned above ABDOMEN: Soft, nontender, nondistended, normoactive bowel sounds. No palpable organomegaly. MUSCULOSKELETAL: No joint swelling or deformity. EXTREMITIES: No cyanosis, clubbing, or pedal edema. NEUROLOGICAL: Gross neurological examination did not reveal any focal deficits. SKIN: No rashes. - Labs CBC & Chem 7: 11/21/18 04:55 11/21/18 04:55 Labs: Abnormal Lab Results - Last 24 Hours (Table) 11/20/18 11/20/18 11/20/18 Range/Units 08:44 12:30 14:01 WBC (3.8-10.6) k/uL RBC (4.30-5.90) m/uL Hgb (13.0-17.5) gm/dL Hct (39.0-53.0) % RDW (11.5-15.5) % Lymphocytes # (1.0-4.8) k/uL PT (9.0-12.0) sec INR (<1.2) APTT (22.0-30.0) sec ABG pO2 235 H 313 H (83-108) mmHg ABG Total CO2 25 H (19-24) mmol/L ABG O2 Saturation 99.4 H 98.2 H (94-97) % ABG Hematocrit 23 L 25 L (34.0-46.0) % ABG Glucose (75-99) mg/dL Hemoglobin 7.6 L 8.2 L (13.0-17.5) gm/dL Chloride (98-107) mmol/L BUN (9-20) mg/dL Creatinine (0.66-1.25) mg/dL POC Glucose (mg/dL) (75-99) mg/dL Calcium (8.4-10.2) mg/dL Total Protein (6.3-8.2) g/dL Albumin (3.5-5.0) g/dL Arterial Blood Glucose (75-99) mg/dL Crossmatch See Detail 11/20/18 11/20/18 11/20/18 Range/Units 15:34 16:17 16:52 WBC (3.8-10.6) k/uL RBC (4.30-5.90) m/uL Hgb (13.0-17.5) gm/dL Hct (39.0-53.0) % RDW (11.5-15.5) % Lymphocytes # (1.0-4.8) k/uL PT (9.0-12.0) sec INR (<1.2) APTT (22.0-30.0) sec ABG pO2 247 H 257 H 165 H (83-108) mmHg ABG Total CO2 (19-24) mmol/L ABG O2 Saturation 99.1 H 99.2 H 98.7 H (94-97) % ABG Hematocrit 24 L 24 L 24 L (34.0-46.0) % ABG Glucose 104 H 102 H (75-99) mg/dL Hemoglobin 7.7 L 7.9 L 7.7 L (13.0-17.5) gm/dL Chloride (98-107) mmol/L BUN (9-20) mg/dL Creatinine (0.66-1.25) mg/dL POC Glucose (mg/dL) (75-99) mg/dL Calcium (8.4-10.2) mg/dL Total Protein (6.3-8.2) g/dL Albumin (3.5-5.0) g/dL Arterial Blood Glucose 104 H 102 H (75-99) mg/dL Crossmatch 11/20/18 11/20/18 11/20/18 Range/Units 17:49 17:54 17:56 WBC 3.3 L (3.8-10.6) k/uL RBC 2.45 L (4.30-5.90) m/uL Hgb 7.8 L (13.0-17.5) gm/dL Hct 24.1 L (39.0-53.0) % RDW 16.5 H (11.5-15.5) % Lymphocytes # (1.0-4.8) k/uL PT (9.0-12.0) sec INR (<1.2) APTT (22.0-30.0) sec ABG pO2 330 H (83-108) mmHg ABG Total CO2 25 H (19-24) mmol/L ABG O2 Saturation 99.3 H (94-97) % ABG Hematocrit (34.0-46.0) % ABG Glucose (75-99) mg/dL Hemoglobin (13.0-17.5) gm/dL Chloride (98-107) mmol/L BUN (9-20) mg/dL Creatinine (0.66-1.25) mg/dL POC Glucose (mg/dL) 101 H (75-99) mg/dL Calcium (8.4-10.2) mg/dL Total Protein (6.3-8.2) g/dL Albumin (3.5-5.0) g/dL Arterial Blood Glucose (75-99) mg/dL Crossmatch 11/20/18 11/20/18 11/20/18 Range/Units 17:56 17:56 19:49 WBC (3.8-10.6) k/uL RBC (4.30-5.90) m/uL Hgb (13.0-17.5) gm/dL Hct (39.0-53.0) % RDW (11.5-15.5) % Lymphocytes # (1.0-4.8) k/uL PT 13.3 H (9.0-12.0) sec INR 1.3 H (<1.2) APTT 32.2 H (22.0-30.0) sec ABG pO2 (83-108) mmHg ABG Total CO2 (19-24) mmol/L ABG O2 Saturation (94-97) % ABG Hematocrit (34.0-46.0) % ABG Glucose (75-99) mg/dL Hemoglobin (13.0-17.5) gm/dL Chloride 111 H (98-107) mmol/L BUN 8 L (9-20) mg/dL Creatinine 0.54 L (0.66-1.25) mg/dL POC Glucose (mg/dL) 114 H (75-99) mg/dL Calcium 8.1 L (8.4-10.2) mg/dL Total Protein 4.5 L (6.3-8.2) g/dL Albumin 2.5 L (3.5-5.0) g/dL Arterial Blood Glucose (75-99) mg/dL Crossmatch 11/20/18 11/20/18 11/20/18 Range/Units 21:02 21:02 22:22 WBC (3.8-10.6) k/uL RBC 2.64 L (4.30-5.90) m/uL Hgb 8.5 L (13.0-17.5) gm/dL Hct 26.2 L (39.0-53.0) % RDW 16.6 H (11.5-15.5) % Lymphocytes # 0.8 L (1.0-4.8) k/uL PT (9.0-12.0) sec INR (<1.2) APTT (22.0-30.0) sec ABG pO2 (83-108) mmHg ABG Total CO2 (19-24) mmol/L ABG O2 Saturation (94-97) % ABG Hematocrit (34.0-46.0) % ABG Glucose (75-99) mg/dL Hemoglobin (13.0-17.5) gm/dL Chloride (98-107) mmol/L BUN (9-20) mg/dL Creatinine (0.66-1.25) mg/dL POC Glucose (mg/dL) 114 H 119 H (75-99) mg/dL Calcium (8.4-10.2) mg/dL Total Protein (6.3-8.2) g/dL Albumin (3.5-5.0) g/dL Arterial Blood Glucose (75-99) mg/dL Crossmatch 11/20/18 11/20/18 11/21/18 Range/Units 23:09 23:10 00:03 WBC (3.8-10.6) k/uL RBC 2.63 L (4.30-5.90) m/uL Hgb 8.2 L (13.0-17.5) gm/dL Hct 25.9 L (39.0-53.0) % RDW 16.5 H (11.5-15.5) % Lymphocytes # 0.8 L (1.0-4.8) k/uL PT (9.0-12.0) sec INR (<1.2) APTT (22.0-30.0) sec ABG pO2 (83-108) mmHg ABG Total CO2 (19-24) mmol/L ABG O2 Saturation (94-97) % ABG Hematocrit (34.0-46.0) % ABG Glucose (75-99) mg/dL Hemoglobin (13.0-17.5) gm/dL Chloride (98-107) mmol/L BUN (9-20) mg/dL Creatinine (0.66-1.25) mg/dL POC Glucose (mg/dL) 118 H 119 H (75-99) mg/dL Calcium (8.4-10.2) mg/dL Total Protein (6.3-8.2) g/dL Albumin (3.5-5.0) g/dL Arterial Blood Glucose (75-99) mg/dL Crossmatch 11/21/18 11/21/1811/21/19 Range/Units 01:00 01:53 03:02 WBC (3.8-10.6) k/uL RBC (4.30-5.90) m/uL Hgb (13.0-17.5) gm/dL Hct (39.0-53.0) % RDW (11.5-15.5) % Lymphocytes # (1.0-4.8) k/uL PT (9.0-12.0) sec INR (<1.2) APTT (22.0-30.0) sec ABG pO2 (83-108) mmHg ABG Total CO2 (19-24) mmol/L ABG O2 Saturation (94-97) % ABG Hematocrit (34.0-46.0) % ABG Glucose (75-99) mg/dL Hemoglobin (13.0-17.5) gm/dL Chloride (98-107) mmol/L BUN (9-20) mg/dL Creatinine (0.66-1.25) mg/dL POC Glucose (mg/dL) 106 H 116 H 109 H (75-99) mg/dL Calcium (8.4-10.2) mg/dL Total Protein (6.3-8.2) g/dL Albumin (3.5-5.0) g/dL Arterial Blood Glucose (75-99) mg/dL Crossmatch 11/21/18 11/21/18 11/21/18 Range/Units 03:50 03:50 03:55 WBC 3.1 L (3.8-10.6) k/uL RBC 2.13 L (4.30-5.90) m/uL Hgb 6.7 L* D (13.0-17.5) gm/dL Hct 21.2 L (39.0-53.0) % RDW 16.7 H (11.5-15.5) % Lymphocytes # 0.8 L (1.0-4.8) k/uL PT 22.8 H (9.0-12.0) sec INR 2.3 H (<1.2) APTT 55.5 H (22.0-30.0) sec ABG pO2 (83-108) mmHg ABG Total CO2 (19-24) mmol/L ABG O2 Saturation (94-97) % ABG Hematocrit (34.0-46.0) % ABG Glucose (75-99) mg/dL Hemoglobin (13.0-17.5) gm/dL Chloride (98-107) mmol/L BUN (9-20) mg/dL Creatinine (0.66-1.25) mg/dL POC Glucose (mg/dL) 117 H (75-99) mg/dL Calcium (8.4-10.2) mg/dL Total Protein (6.3-8.2) g/dL Albumin (3.5-5.0) g/dL Arterial Blood Glucose (75-99) mg/dL Crossmatch 11/21/18 11/21/18 11/21/18 Range/Units 04:55 04:55 04:55 WBC (3.8-10.6) k/uL RBC 2.76 L (4.30-5.90) m/uL Hgb 8.5 L D (13.0-17.5) gm/dL Hct 27.2 L (39.0-53.0) % RDW 16.3 H (11.5-15.5) % Lymphocytes # (1.0-4.8) k/uL PT 15.5 H (9.0-12.0) sec INR 1.5 H (<1.2) APTT 31.8 H (22.0-30.0) sec ABG pO2 (83-108) mmHg ABG Total CO2 (19-24) mmol/L ABG O2 Saturation (94-97) % ABG Hematocrit (34.0-46.0) % ABG Glucose (75-99) mg/dL Hemoglobin (13.0-17.5) gm/dL Chloride 108 H (98-107) mmol/L BUN 7 L (9-20) mg/dL Creatinine (0.66-1.25) mg/dL POC Glucose (mg/dL) (75-99) mg/dL Calcium (8.4-10.2) mg/dL Total Protein 4.9 L (6.3-8.2) g/dL Albumin 2.9 L (3.5-5.0) g/dL Arterial Blood Glucose (75-99) mg/dL Crossmatch 11/21/18 11/21/18 Range/Units 06:33 12:16 WBC (3.8-10.6) k/uL RBC (4.30-5.90) m/uL Hgb (13.0-17.5) gm/dL Hct (39.0-53.0) % RDW (11.5-15.5) % Lymphocytes # (1.0-4.8) k/uL PT (9.0-12.0) sec INR (<1.2) APTT (22.0-30.0) sec ABG pO2 (83-108) mmHg ABG Total CO2 (19-24) mmol/L ABG O2 Saturation (94-97) % ABG Hematocrit (34.0-46.0) % ABG Glucose (75-99) mg/dL Hemoglobin (13.0-17.5) gm/dL Chloride (98-107) mmol/L BUN (9-20) mg/dL Creatinine (0.66-1.25) mg/dL POC Glucose (mg/dL) 120 H 133 H (75-99) mg/dL Calcium (8.4-10.2) mg/dL Total Protein (6.3-8.2) g/dL Albumin (3.5-5.0) g/dL Arterial Blood Glucose (75-99) mg/dL Crossmatch Assessment and Plan Plan: -Acute non-ST elevation myocardial infarction: Stenosis of LAD patient is on antiplatelet therapy beta john statin, CABG yesterday with her chest tubes in place postoperative day 1 today -bicytopenia: Secondary to chronic liver disease, better now because of blood transfusion and white blood cell count improved but continues to have neutropenia -Hypertension: -Nicotine dependence: Counseling was provided -Hyperlipidemia
[2018-11-21] MEDS ORDERED: HYDROcodone/APAP 5-325MG 1 EACH TAB PO PRN (16:33)
[2018-11-21] MEDS ORDERED: MAGNESIUM HYDROXIDE 2,400 MG/10 ML CUP PO PRN (16:34)
[2018-11-21] MEDS ORDERED: BISACODYL 10 MG SUPP RECTAL PRN (16:34)
[2018-11-21 16:59] LABS: Glucose,Whole Blood 154 mg/dL (75-99)
[2018-11-21] MEDS: CLOPIDOGREL 75 MG TAB PO SCH (17:39)
[2018-11-21] MEDS: CLEVIDIPINE BUTYRATE 25 MG in EMPTY BAG 1 BAG IV SCH (17:51)
[2018-11-21 20:45] LABS: Glucose,Whole Blood 131 mg/dL (75-99)
[2018-11-21] MEDS: SENNOSIDES-DOCUSATE SODIUM 1 EACH TAB PO SCH (21:22)
[2018-11-21] MEDS: HYDROcodone/APAP 5-325MG 1 EACH TAB PO PRN (23:49)
[2018-11-22] MEDS: LACTATED RINGERS 1,000 ML IV SCH ×2 (00:52→21:45)
[2018-11-22] MEDS: HEPARIN SODIUM,PORCINE 5,000 UNIT/ML 1 ML VIAL SQ SCH ×4 (00:59→23:22)
[2018-11-22 04:40] LABS: Anisocytosis Slight; Basophils % (A) 0 %; Eosinophils # (A) 0.1 k/uL (0-0.7); Eosinophils % (A) 2 %; HCT 23.1 % (39.0-53.0); HGB 7.5 gm/dL (13.0-17.5); Hypochromasia Slight; Lymphocytes # (A) 0.8 k/uL (1.0-4.8); Lymphocytes % (A) 25 %; MCH 32.1 pg (25.0-35.0); MCHC 32.5 g/dL (31.0-37.0); MCV 98.8 fL (80.0-100.0); Macrocytosis Slight; Mean Platelet Volume 6.8; Monocytes # (A) 0.3 k/uL (0-1.0); Monocytes % (A) 8 %; Neutrophils % (A) 62 %; Platelet Count 204 k/uL (150-450); RBC 2.34 m/uL (4.30-5.90); RDW 16.8 % (11.5-15.5); WBC 3.3 k/uL (3.8-10.6)
[2018-11-22 04:54] LABS: Ionized Calcium 5.4 mg/dL (4.5-5.3)
[2018-11-22 05:07] LABS: ALT 30 U/L (21-72); AST 16 U/L (17-59); Albumin 2.8 g/dL (3.5-5.0); Alkaline Phosphatase 56 U/L (38-126); Anion Gap 5 mmol/L; Blood Urea Nitrogen 12 mg/dL (9-20); Calcium 8.8 mg/dL (8.4-10.2); Carbon Dioxide 23 mmol/L (22-30); Chloride 107 mmol/L (98-107); Glucose 89 mg/dL (74-99); Magnesium 2.3 mg/dL (1.6-2.3); Potassium 4.1 mmol/L (3.5-5.1); Sodium 135 mmol/L (137-145); Total Bilirubin 0.7 mg/dL (0.2-1.3); Total Protein 4.8 g/dL (6.3-8.2)
[2018-11-22] MEDS: HYDROcodone/APAP 5-325MG 1 EACH TAB PO PRN ×3 (06:01→22:20)
[2018-11-22] MEDS: KETOROLAC 30 MG/ML 1 ML VIAL IVP SCH ×4 (06:01→23:21)
[2018-11-22 06:54] LABS: Glucose,Whole Blood 110 mg/dL (75-99)
[2018-11-22] MEDS: INSULIN ASPART (NovoLOG) 100 UNIT/ML VIAL SQ SCH ×4 (07:16→21:11)
[2018-11-22] MEDS: IPRATROPIUM-ALBUTEROL 3 ML NEB INHALATION SCH ×4 (08:36→21:24)
[2018-11-22] MEDS: METOPROLOL TARTRATE 12.5 MG TAB PO SCH ×2 (09:09→21:36)
[2018-11-22] MEDS: ASPIRIN 325 MG TAB PO SCH (09:09)
[2018-11-22] MEDS: CLOPIDOGREL 75 MG TAB PO SCH (09:09)
[2018-11-22] MEDS: ATORVASTATIN 40 MG TAB PO SCH (09:09)
[2018-11-22] MEDS: PANTOPRAZOLE 40 MG TABLET PO SCH (09:09)
[2018-11-22] MEDS: MUPIROCIN 2% OINT 22 GM TUBE NASAL SCH ×2 (09:10→21:35)
--- NOTE | 2018-11-22 09:18 | XR ---
EXAMINATION TYPE: XR chest 1V portable DATE OF EXAM: 11/22/2018 COMPARISON: 11/21/2018 INDICATION: Postop cardiac surgery TECHNIQUE: Single frontal view of the chest is obtained. FINDINGS: The heart size is normal. The pulmonary vasculature is normal. Minimal infiltrates are at the lung bases. Correlate for subsegmental atelectasis. This is improving. Left-sided chest tube remains present. No pneumothorax is evident. Right central venous catheter dove th is present. No right pneumothorax is evident. IMPRESSION: 1. Improving bibasilar atelectasis
--- NOTE | 2018-11-22 09:39 | P.PN ---
Subjective Progress Note Date: 11/22/18 Principal diagnosis: Non-STEMI, subendocardial infarction, severe triple vessel coronary artery disease with left main disease. Previous medical history of hypertension, hyperlipidemia, tobacco dependence with preoperative FEV1 79% of predicted, and family history of early coronary artery disease. Preoperative bicytopenia of unknown origin. POD #2 urgent off-pump coronary artery bypass graft 3 with the left internal mammary artery to the proximal left anterior descending artery, reverse saphenous vein graft to the obtuse marginal artery, reverse saphenous vein graft to the posterior descending coronary artery with endovascular vein harvest of the right thigh and intraoperative transesophageal echocardiogram by anesthesia. Sternal bone marrow biopsy. Postoperative acute blood loss anemia, expected as patient was anemic preoperatively. The patient is currently sitting up in the recliner in the intensive care unit in no acute distress. Does complain of post surgical incisional pain which is controlled on current medication regimen, denies shortness of breath. No new complaints or concerns. Remains in normal sinus rhythm. Levo was discontinued yesterday morning and patient has remained hemodynamically stable. States he ambulated in the hallway this morning. Objective - Vital Signs Vital signs: Vital Signs Temp 98.2 F 11/22/18 04:00 Pulse 75 11/22/18 07:00 Resp 19 11/22/18 07:00 BP 119/73 11/22/18 07:00 Pulse Ox 95 11/22/18 07:00 Intake & Output 11/21/18 11/22/18 11/22/18 18:59 06:59 18:59 Intake Total 978 1282 33 Output Total 797 695 60 Balance 181 587 -27 Weight 64 kg 65.2 kg Intake: IV 978 682 33 Albumin Human 25% 50 ml 250 250 In Empty Bag 1 bag @ 100 mls/hr IVPB ONCE ONE Rx#: [id number] Cardiac Output 20 Lactated Ringers 1,000 ml 530 390 30 @ 20 mls/hr IV .Q24H [facility] Rx#:[id number] Magnesium Sulfate-D5w Pmx 100 1 gm In Dextrose/Water 1 100ml.bag @ 100 mls/hr IVPB Q1H [facility] Rx#: [id number] pressure bag 0.9 78 42 3 Oral 500 Blood Product 100 Output: Chest Tube Drainage 270 150 60 Left Pleural/Mediastinal 270 150 60 Urine 527 545 0 Other: Voiding Method Indwelling Catheter Indwelling Catheter # Voids 0 ABP, PAP, CO, CI - Last Documented Arterial Blood Pressure 62/51 Pulmonary Artery Pressure 24/7 Cardiac Output 7.4 Cardiac Index 4.3 - Constitutional General appearance: Present: cooperative, no acute distress, thin - Respiratory Details: Lungs sounds diminished bilaterally. Respirations even, nonlabored. Currently on 2 L nasal cannula with oxygen saturation 95%. Able to achieve 1000 mL on his incentive spirometry. Strong productive cough. Mediastinal/left pleural chest tube to continuous wall suction, 110 mL of thin serosanguineous drainage overnight, 450 mL in the last 24 hours, no air leak. - Cardiovascular Details: S1, S2 present. Regular rate and rhythm, sinus rhythm on telemetry. Sternum stable. Palpable peripheral pulses bilaterally. No edema present. No calf pain or tenderness noted. Right internal jugular Cordis present. Heart hugger in place with patient demonstrating appropriate use. Antiembolism stockings, SCDs present. - Gastrointestinal Gastrointestinal Comment(s): Abdomen soft, nontender, nondistended. Active bowel sounds present 4 quadrants. Tolerating diet. Positive flatus, negative bowel movement. - Genitourinary Genitourinary Comment(s): Smith was discontinued this morning, prior to that urine output was 30-50 mL per hour overnight. - Integumentary Integumentary Comment(s): Skin is warm and dry with evidence of good perfusion. Anterior chest incision well approximated and covered with dry intact dressing. Right lower extremity EVH site well approximated. - Neurologic Neurologic: Present: CNII-XII intact - Musculoskeletal Musculoskeletal: Present: gait normal, strength equal bilaterally - Psychiatric Psychiatric: Present: A&O x's 3, appropriate affect, intact judgment & insight - Allied health notes Allied health notes reviewed: nursing - Labs CBC & Chem 7: 11/22/18 04:00 11/22/18 04:00 Labs: Abnormal Lab Results - Last 24 Hours (Table) 11/20/18 11/21/18 11/21/18 Range/Units 08:44 12:16 16:58 WBC (3.8-10.6) k/uL RBC (4.30-5.90) m/uL Hgb (13.0-17.5) gm/dL Hct (39.0-53.0) % RDW (11.5-15.5) % Lymphocytes # (1.0-4.8) k/uL Sodium (137-145) mmol/L POC Glucose (mg/dL) 133 H 154 H (75-99) mg/dL Ionized Calcium Daniele (4.5-5.3) mg/dL AST (17-59) U/L Total Protein (6.3-8.2) g/dL Albumin (3.5-5.0) g/dL Crossmatch See Detail 11/21/18 11/22/18 11/22/18 Range/Units 20:43 04:00 04:00 WBC 3.3 L (3.8-10.6) k/uL RBC 2.34 L (4.30-5.90) m/uL Hgb 7.5 L (13.0-17.5) gm/dL Hct 23.1 L (39.0-53.0) % RDW 16.8 H (11.5-15.5) % Lymphocytes # 0.8 L (1.0-4.8) k/uL Sodium 135 L (137-145) mmol/L POC Glucose (mg/dL) 131 H (75-99) mg/dL Ionized Calcium Daniele 5.4 H (4.5-5.3) mg/dL AST 16 L (17-59) U/L Total Protein 4.8 L (6.3-8.2) g/dL Albumin 2.8 L (3.5-5.0) g/dL Crossmatch 11/22/18 Range/Units 06:51 WBC (3.8-10.6) k/uL RBC (4.30-5.90) m/uL Hgb (13.0-17.5) gm/dL Hct (39.0-53.0) % RDW (11.5-15.5) % Lymphocytes # (1.0-4.8) k/uL Sodium (137-145) mmol/L POC Glucose (mg/dL) 110 H (75-99) mg/dL Ionized Calcium Daniele (4.5-5.3) mg/dL AST (17-59) U/L Total Protein (6.3-8.2) g/dL Albumin (3.5-5.0) g/dL Crossmatch - Imaging and Cardiology Chest x-ray: report reviewed, image reviewed Assessment and Plan (1) Hypertension Current Visit: Yes Status: Chronic Code(s): I10 - ESSENTIAL (PRIMARY) HYPERTENSION SNOMED Code(s): 53177121 (2) Hyperlipidemia Current Visit: Yes Status: Chronic Code(s): E78.5 - HYPERLIPIDEMIA, UNSPECIFIED SNOMED Code(s): 18628153 (3) Tobacco dependence Current Visit: Yes Status: Chronic Code(s): F17.200 - NICOTINE DEPENDENCE, UNSPECIFIED, UNCOMPLICATED SNOMED Code(s): 70822750 (4) Family history of early CAD Current Visit: Yes Status: Chronic Code(s): Z82.49 - FAMILY HX OF ISCHEM HEART DIS AND OTH DIS OF THE CIRC SYS SNOMED Code(s): 961703661 (5) NSTEMI (non-ST elevated myocardial infarction) Current Visit: Yes Status: Acute Code(s): I21.4 - NON-ST ELEVATION (NSTEMI) MYOCARDIAL INFARCTION SNOMED Code(s): 27111303 Plan: 1. Continue aspirin, statin, Plavix, beta john therapy. Will increase beta john therapy as tolerated. 2. Wean O2 as tolerated. Encourage incentive spirometry is 10 times every hour while awake. 3. Encourage smoking cessation. 4. Bronchodilators per pulmonology. 5. Will add oral iron, vitamin B/C/folic acid complex. 6. Increase activity, ambulate as tolerated. PT/OT/cardiac rehab following. 7. Obtain peripheral IV access, discontinue Cordis. 8. Will separate chest tubes, discontinue mediastinal chest tube, continue left pleural chest tube for another 24 hours. 9. Will monitor daily labs and x-rays. Electrolyte replacement per protocol. No further transfusions at this time. 10. Pain controlled current medication regimen. 11. Insulin management per primary care service. 12. GI prophylaxis with Protonix, DVT prophylaxis with subcu heparin, SCDs. 13. Bone marrow biopsy completed from sternum, await results. 14. Will place transfer orders for 3 cells cardiac stepdown unit. May transfer when bed available. 15. More recommendations to follow. Time with Patient: Greater than 30
--- NOTE | 2018-11-22 10:57 | PN ---
PROGRESS NOTE Mr. Acosta is a 58-year-old male who presented with non ST-segment elevation myocardial infarction, was found to have severe triple-vessel coronary disease. Underwent coronary artery bypass grafting. He is doing well this morning and sitting up in the chair. Denying any chest pains, feeling stronger. Denies any dizziness or palpitation. Denies any nausea or vomiting. He continues to be at this time on aspirin once a day, Lipitor 40 mg daily, Plavix 75 mg daily, metoprolol tartrate 12.5 mg twice a day. PHYSICAL EXAMINATION: Blood pressure 119/70 with a heart rate in the 70s. LUNGS: Clear with mild crackles at the bases. HEART: Regular rate and rhythm, S1, S2. No S3. No rub. ABDOMEN: Soft and nontender. EXTREMITIES: No edema. LAB DATA: BUN and creatinine 12 and 0.68. His white blood cell of 3.3, hemoglobin of 7.5. IMPRESSION: 1. Status post coronary artery bypass grafting, stable. 2. Hypertension. 3. Bicytopenia, stable. 4. Prior history of smoking. RECOMMENDATION: From the cardiac standpoint, we will continue present therapy. Follow his blood pressure and adjust the dose of beta john accordingly. We will await the results of the sternum biopsy. Continue incentive spirometry. Increase his activity and depending on his progress, further recommendations will be made. MMODL / IJN: [id number] /
[2018-11-22 11:55] LABS: Glucose,Whole Blood 71 mg/dL (75-99)
[2018-11-22] MEDS: FOLIC ACID-VIT B COMPLEX-VIT C 1 CAP PO SCH (12:36)
--- NOTE | 2018-11-22 12:55 | P.PN ---
Subjective 58-year-old admitted for chest pain found have non-ST elevation microinfarction underwent recatheterization showed stenosis of LAD. Patient was evaluated by carotid thoracic surgery for coronary artery bypass grafting supposed to undergo surgery today but because of low white blood cell count, surgery was held and hematology was consulted for this. 11/19/2018 Patient was a valid bank hematology for bicytopenia and bicipital pain is believed secondary to his alcoholism and liver disease. And oncology cleared for surgery hopefully he'll go for coronary artery bypass grafting soon 11/20/2018 Patient will undergo coronary artery bypass grafting today 11/21/2018 Agent is status post coronary artery bypass grafting postoperative day one patient is on low dose of norepinephrine which is being weaned off good urine output patient has 2 rest use 1 left lower 1 mediastinal with significant output from the chest tubes received about 4 PRBC transfusion 11/22/2018 Patient is clinically doing well all the chest tubes and Cordis will be removed today no overnight events. No chest pain at this time. Constitutional: Denied any fatigue denied any fever. Cardio vascular: denied any chest pain, palpitations Gastrointestinal denied any nausea vomiting Pulmonary: Denied any shortness of breath cough Neurologic denied any new focal deficits All inpatient medications were reviewed and appropriate changes in these medications as dictated in the interval history and assessment and plan. Objective - Vital Signs Vital signs: Vital Signs Temp 98.7 F 11/22/18 08:00 Pulse 74 11/22/18 12:01 Resp 21 11/22/18 10:00 BP 106/66 11/22/18 10:00 Pulse Ox 97 11/22/18 10:00 Intake & Output 11/21/18 11/22/18 11/22/18 18:59 06:59 18:59 Intake Total 978 1282 135 Output Total 797 695 120 Balance 181 587 15 Weight 64 kg 65.2 kg Intake: IV 978 682 135 Albumin Human 25% 50 ml 250 250 In Empty Bag 1 bag @ 100 mls/hr IVPB ONCE ONE Rx#: [id number] Cardiac Output 20 Lactated Ringers 1,000 ml 530 390 120 @ 20 mls/hr IV .Q24H [facility] Rx#:[id number] Magnesium Sulfate-D5w Pmx 100 1 gm In Dextrose/Water 1 100ml.bag @ 100 mls/hr IVPB Q1H [facility] Rx#: [id number] pressure bag 0.9 78 42 15 Oral 500 Blood Product 100 Output: Chest Tube Drainage 270 150 120 Left Pleural/Mediastinal 270 150 120 Urine 527 545 0 Other: Voiding Method Indwelling Catheter Indwelling Catheter Urinal # Voids 0 1 ABP, PAP, CO, CI - Last Documented Arterial Blood Pressure 62/51 Pulmonary Artery Pressure 24/7 Cardiac Output 7.4 Cardiac Index 4.3 - Exam PHYSICAL EXAMINATION: GENERAL: The patient is alert and oriented x3, not in any acute distress. Well developed, well nourished. HEENT: Pupils are round and equally reacting to light. EOMI. No scleral icterus. No conjunctival pallor. Normocephalic, atraumatic. No pharyngeal erythema. No thyromegaly. CARDIOVASCULAR: S1 and S2 present. No murmurs, rubs, or gallops. PULMONARY: Chest is clear to auscultation, no wheezing or crackles. Chest tubes as mentioned above ABDOMEN: Soft, nontender, nondistended, normoactive bowel sounds. No palpable organomegaly. MUSCULOSKELETAL: No joint swelling or deformity. EXTREMITIES: No cyanosis, clubbing, or pedal edema. NEUROLOGICAL: Gross neurological examination did not reveal any focal deficits. SKIN: No rashes. - Labs CBC & Chem 7: 11/22/18 04:00 11/22/18 04:00 Labs: Abnormal Lab Results - Last 24 Hours (Table) 11/20/18 11/21/18 11/21/18 Range/Units 08:44 16:58 20:43 WBC (3.8-10.6) k/uL RBC (4.30-5.90) m/uL Hgb (13.0-17.5) gm/dL Hct (39.0-53.0) % RDW (11.5-15.5) % Lymphocytes # (1.0-4.8) k/uL Sodium (137-145) mmol/L POC Glucose (mg/dL) 154 H 131 H (75-99) mg/dL Ionized Calcium Daniele (4.5-5.3) mg/dL AST (17-59) U/L Total Protein (6.3-8.2) g/dL Albumin (3.5-5.0) g/dL Crossmatch See Detail 11/22/18 11/22/18 11/22/18 Range/Units 04:00 04:00 06:51 WBC 3.3 L (3.8-10.6) k/uL RBC 2.34 L (4.30-5.90) m/uL Hgb 7.5 L (13.0-17.5) gm/dL Hct 23.1 L (39.0-53.0) % RDW 16.8 H (11.5-15.5) % Lymphocytes # 0.8 L (1.0-4.8) k/uL Sodium 135 L (137-145) mmol/L POC Glucose (mg/dL) 110 H (75-99) mg/dL Ionized Calcium Daniele 5.4 H (4.5-5.3) mg/dL AST 16 L (17-59) U/L Total Protein 4.8 L (6.3-8.2) g/dL Albumin 2.8 L (3.5-5.0) g/dL Crossmatch 11/22/18 Range/Units 11:54 WBC (3.8-10.6) k/uL RBC (4.30-5.90) m/uL Hgb (13.0-17.5) gm/dL Hct (39.0-53.0) % RDW (11.5-15.5) % Lymphocytes # (1.0-4.8) k/uL Sodium (137-145) mmol/L POC Glucose (mg/dL) 71 L (75-99) mg/dL Ionized Calcium Daniele (4.5-5.3) mg/dL AST (17-59) U/L Total Protein (6.3-8.2) g/dL Albumin (3.5-5.0) g/dL Crossmatch Assessment and Plan Plan: -Acute non-ST elevation myocardial infarction: Stenosis of LAD patient is on antiplatelet therapy beta john statin, CABG yesterday with her chest tubes in place postoperative day 1 today -bicytopenia: Secondary to chronic liver disease, better now because of blood transfusion and white blood cell count improved but continues to have neutropenia -Hypertension: -Nicotine dependence: Counseling was provided -Hyperlipidemia
--- NOTE | 2018-11-22 14:08 | P.PN ---
Subjective Progress Note Date: 11/22/18 On 09/21/2019, the patient is postop day #2. Patient is doing extremely well. The patient's biggest on chest tube was removed and the pleural chest tube will be kept for another 24 hours. He is using incentive spirometer. Is afebrile. Hemodynamically stable. No nausea. No vomiting. No abdominal pain. No chest pain. No cardiac arrhythmias. He is using incentive spirometer. The chest x- ray that was done today showed left-sided chest tubes, mediastinal chest tubes, pulmonary vascular she is within normal limits, there is improving bibasilar atelectatic changes without any evidence of pneumothorax. No altered mentation. The white cell count is at 3.3. Hemoglobin stable at 7.5. Objective - Vital Signs Vital signs: Vital Signs Temp 98.0 F 11/22/18 12:00 Pulse 74 11/22/18 12:01 Resp 15 11/22/18 12:00 BP 123/69 11/22/18 12:00 Pulse Ox 95 11/22/18 11:00 Intake & Output 11/21/18 11/22/18 11/22/18 18:59 06:59 18:59 Intake Total 978 1282 138 Output Total 797 695 120 Balance 181 587 18 Weight 64 kg 65.2 kg Intake: IV 978 682 138 Albumin Human 25% 50 ml 250 250 In Empty Bag 1 bag @ 100 mls/hr IVPB ONCE ONE Rx#: [id number] Cardiac Output 20 Lactated Ringers 1,000 ml 530 390 120 @ 20 mls/hr IV .Q24H [facility] Rx#:[id number] Magnesium Sulfate-D5w Pmx 100 1 gm In Dextrose/Water 1 100ml.bag @ 100 mls/hr IVPB Q1H [facility] Rx#: [id number] pressure bag 0.9 78 42 18 Oral 500 Blood Product 100 Output: Chest Tube Drainage 270 150 120 Left Pleural/Mediastinal 270 150 120 Urine 527 545 0 Other: Voiding Method Indwelling Catheter Indwelling Catheter Urinal # Voids 0 1 ABP, PAP, CO, CI - Last Documented Arterial Blood Pressure 62/51 Pulmonary Artery Pressure 24/7 Cardiac Output 7.4 Cardiac Index 4.3 - Exam - Constitutional General appearance: Present: cooperative, no acute distress, thin - Respiratory Details: Lungs sounds diminished bilaterally. Respirations even, nonlabored. Currently on 2 L nasal cannula with oxygen saturation 95%. Able to achieve 1000 mL on his incentive spirometry. Strong productive cough. Mediastinal/left pleural chest tube to continuous wall suction, 110 mL of thin serosanguineous drainage overnight, 450 mL in the last 24 hours, no air leak. - Cardiovascular Details: S1, S2 present. Regular rate and rhythm, sinus rhythm on telemetry. Sternum stable. Palpable peripheral pulses bilaterally. No edema present. No calf pain or tenderness noted. Right internal jugular Cordis present. Heart hugger in place with patient demonstrating appropriate use. Antiembolism stockings, SCDs present. - Gastrointestinal Gastrointestinal Comment(s): Abdomen soft, nontender, nondistended. Active bowel sounds present 4 quadrants. Tolerating diet. Positive flatus, negative bowel movement. - Genitourinary Genitourinary Comment(s): Smith was discontinued this morning, prior to that urine output was 30-50 mL per hour overnight. - Integumentary Integumentary Comment(s): Skin is warm and dry with evidence of good perfusion. Anterior chest incision well approximated and covered with dry intact dressing. Right lower extremity EVH site well approximated. - Neurologic Neurologic: Present: CNII-XII intact - Musculoskeletal Musculoskeletal: Present: gait normal, strength equal bilaterally - Psychiatric Psychiatric: Present: A&O x's 3, appropriate affect, intact judgment & insight - Labs CBC & Chem 7: 11/22/18 04:00 11/22/18 04:00 Labs: Abnormal Lab Results - Last 24 Hours (Table) 11/20/18 11/21/18 11/21/18 Range/Units 08:44 16:58 20:43 WBC (3.8-10.6) k/uL RBC (4.30-5.90) m/uL Hgb (13.0-17.5) gm/dL Hct (39.0-53.0) % RDW (11.5-15.5) % Lymphocytes # (1.0-4.8) k/uL Sodium (137-145) mmol/L POC Glucose (mg/dL) 154 H 131 H (75-99) mg/dL Ionized Calcium Daniele (4.5-5.3) mg/dL AST (17-59) U/L Total Protein (6.3-8.2) g/dL Albumin (3.5-5.0) g/dL Crossmatch See Detail 11/22/18 11/22/18 11/22/18 Range/Units 04:00 04:00 06:51 WBC 3.3 L (3.8-10.6) k/uL RBC 2.34 L (4.30-5.90) m/uL Hgb 7.5 L (13.0-17.5) gm/dL Hct 23.1 L (39.0-53.0) % RDW 16.8 H (11.5-15.5) % Lymphocytes # 0.8 L (1.0-4.8) k/uL Sodium 135 L (137-145) mmol/L POC Glucose (mg/dL) 110 H (75-99) mg/dL Ionized Calcium Daniele 5.4 H (4.5-5.3) mg/dL AST 16 L (17-59) U/L Total Protein 4.8 L (6.3-8.2) g/dL Albumin 2.8 L (3.5-5.0) g/dL Crossmatch 11/22/18 Range/Units 11:54 WBC (3.8-10.6) k/uL RBC (4.30-5.90) m/uL Hgb (13.0-17.5) gm/dL Hct (39.0-53.0) % RDW (11.5-15.5) % Lymphocytes # (1.0-4.8) k/uL Sodium (137-145) mmol/L POC Glucose (mg/dL) 71 L (75-99) mg/dL Ionized Calcium Daniele (4.5-5.3) mg/dL AST (17-59) U/L Total Protein (6.3-8.2) g/dL Albumin (3.5-5.0) g/dL Crossmatch Assessment and Plan Plan: Impression: #1 acute non-ST segment elevation myocardial infarction. The patient has severe atherosclerotic heart disease with triple-vessel involvement . The patient is postop day #2. He is doing extremely well. His mediastinal chest tube will be removed. [place] catheter has been removed. Chest x-ray shows improvement atelectatic changes in lung bases. Otherwise no other significant events over the past 24 hours. Hemodynamics stable and no cardiac arrhythmias. #2 coronary artery bypass surgery and the patient underwent an off-pump three- vessel bypass and daily and the is postop day #2. #3 Chronic and ongoing tobacco dependence. FEV1 value 79% of predicted. #4 Hypertension. #5 Family history of previous myocardial infarction of his father in the 50s with CABG. #6 anemia, stable hemoglobin, expected outcome following surgery. Note that the patient had a baseline chronic anemia possibly secondary to splenic sequestration versus a component of mild dysplasia. A bone marrow aspirate was obtained intraoperatively. #7 leukopenia with lymphocytosis. The white cell count has improved and the patient's absolute neutrophil count is about thousand. No signs of any sepsis. Plan Continue aspirin and Plavix and beta blockers. Wean down the FiO2 as tolerated to maintain a saturation above 90%. The patient may possibly be taken off oxygen today. Remove the mediastinal chest tube. Keep the pleural chest tube. Continue with bronchodilators. Remove the cordis and obtain peripheral IV access. Insulin management. Blood sugar control. Pain is under adequate control. The patient will be moved to a medical floor with telemetry monitoring at a later stage. Good recovery following surgery. No other active issues for now.
[2018-11-22 17:26] LABS: Glucose,Whole Blood 99 mg/dL (75-99)
[2018-11-22] MEDS: FERROUS SULFATE 325 MG TAB PO SCH (17:33)
[2018-11-22 20:15] LABS: Glucose,Whole Blood 118 mg/dL (75-99)
[2018-11-22] MEDS: SENNOSIDES-DOCUSATE SODIUM 1 EACH TAB PO SCH (21:36)
[2018-11-23 02:33] LABS: Glucose,Whole Blood 100 mg/dL (75-99)
[2018-11-23 06:08] LABS: Glucose,Whole Blood 109 mg/dL (75-99)
[2018-11-23] MEDS: INSULIN ASPART (NovoLOG) 100 UNIT/ML VIAL SQ SCH ×3 (06:10→16:48)
[2018-11-23] MEDS: KETOROLAC 30 MG/ML 1 ML VIAL IVP SCH ×3 (06:20→17:21)
[2018-11-23] MEDS: FERROUS SULFATE 325 MG TAB PO SCH ×2 (06:21→17:21)
[2018-11-23] MEDS: PANTOPRAZOLE 40 MG TABLET PO SCH (06:21)
[2018-11-23 06:37] LABS: Anisocytosis Slight; Basophils % (A) 0 %; Eosinophils # (A) 0.1 k/uL (0-0.7); Eosinophils % (A) 5 %; HCT 22.2 % (39.0-53.0); Hypochromasia Slight; Lymphocytes # (A) 0.7 k/uL (1.0-4.8); Lymphocytes % (A) 24 %; MCH 30.9 pg (25.0-35.0); MCHC 31.5 g/dL (31.0-37.0); MCV 98.1 fL (80.0-100.0); Macrocytosis Slight; Mean Platelet Volume 7.3; Monocytes # (A) 0.2 k/uL (0-1.0); Monocytes % (A) 8 %; Neutrophils # (A) 1.8 k/uL (1.3-7.7); Neutrophils % (A) 60 %; Platelet Count 207 k/uL (150-450); RBC 2.26 m/uL (4.30-5.90); RDW 16.7 % (11.5-15.5); WBC 2.9 k/uL (3.8-10.6)
[2018-11-23 06:53] LABS: Anion Gap 6 mmol/L; Blood Urea Nitrogen 19 mg/dL (9-20); Calcium 8.7 mg/dL (8.4-10.2); Carbon Dioxide 24 mmol/L (22-30); Chloride 106 mmol/L (98-107); Glucose 89 mg/dL (74-99); Potassium 4.5 mmol/L (3.5-5.1); Sodium 136 mmol/L (137-145)
--- NOTE | 2018-11-23 07:49 | XR ---
EXAMINATION TYPE: XR chest 2V DATE OF EXAM: 11/23/2018 COMPARISON: 11/22/2018 INDICATION: Post cardiac surgery, previous abnormal chest TECHNIQUE: Frontal and lateral views of the chest are obtained. FINDINGS: The heart size is normal. The pulmonary vasculature is normal. Mild atelectasis at the right base. A small right pleural effusion is present. Left-sided chest tube is present. No left-sided pneumothorax is evident. The central venous catheter sheath has been remove d from the right.. Extremely subtle pneumothorax may be present at the right apex. Close monitoring is recommended. IMPRESSION: 1. Very tiny right apical pneumothorax post right catheter sheath removal. 2. Left-sided chest tube remains in position. 3. Small right pleural effusion. A [place] critical message alert has been initiated for Urmila Jones via the [employer] Results System on 11/23/2018 7:47 AM. This message alert has been sent to Urmila Jones via the prefe rences provided by the clinician for the receipt of Radiology Critical Findings. Message ID [id number].
[2018-11-23] MEDS: HEPARIN SODIUM,PORCINE 5,000 UNIT/ML 1 ML VIAL SQ SCH ×2 (07:58→17:21)
[2018-11-23] MEDS: ATORVASTATIN 40 MG TAB PO SCH (07:58)
[2018-11-23] MEDS: ASPIRIN 325 MG TAB PO SCH (07:58)
[2018-11-23] MEDS: CLOPIDOGREL 75 MG TAB PO SCH (07:59)
[2018-11-23] MEDS: METOPROLOL TARTRATE 12.5 MG TAB PO SCH (07:59)
[2018-11-23] MEDS: MUPIROCIN 2% OINT 22 GM TUBE NASAL SCH ×2 (07:59→22:50)
[2018-11-23] MEDS: FOLIC ACID-VIT B COMPLEX-VIT C 1 CAP PO SCH ×2 (07:59→10:24)
[2018-11-23] MEDS: IPRATROPIUM-ALBUTEROL 3 ML NEB INHALATION SCH ×4 (08:11→20:48)
[2018-11-23] MEDS: NITROGLYCERIN OINT 1 INCH/GM PACKET TOPICAL SCH (09:09)
--- NOTE | 2018-11-23 10:22 | PN ---
PROGRESS NOTE Mr. Acosta is a 58-year-old male who presented with a non ST-segment elevation myocardial infarction, underwent cardiac catheterization and subsequently coronary bypass grafting. He is doing well this morning. His breathing has been stable. He has been ambulating without difficulty. He denies any dizziness or palpitation. He had evidence of bicytopenia and underwent a sternal bone marrow biopsy and the result remains pending. He continues to be at this time on aspirin once a day, Lipitor 40 mg daily, Plavix 75 mg daily, metoprolol tartrate 12.5 mg twice a day. PHYSICAL EXAMINATION: Blood pressure 134/70 with a heart rate in 90s. LUNGS: A few crackles at the bases. HEART: Regular rate and rhythm, S1, S2. No S3. No rub. ABDOMEN: Soft, nontender. EXTREMITIES: No edema. LAB DATA: Revealed a white blood cell of 2.9 with a hemoglobin of 7, platelet count of 207. BUN and creatinine 19 and 0.72, potassium 4.5. IMPRESSION: 1. Status post coronary artery bypass grafting, stable. 2. Bicytopenia, etiology unclear. 3. Prior history of smoking. 4. Hypertension, stable. RECOMMENDATION: I will increase the dose of his beta john. Increase his level of activity. The chest tube probably will be removed today. I am hopeful he will be able to be discharged home in the next 24 to 48 hours. MMODL / TOSINN: [id number] /
[2018-11-23 11:23] LABS: Glucose,Whole Blood 100 mg/dL (75-99)
--- NOTE | 2018-11-23 11:28 | P.PN ---
Subjective 58-year-old admitted for chest pain found have non-ST elevation microinfarction underwent recatheterization showed stenosis of LAD. Patient was evaluated by carotid thoracic surgery for coronary artery bypass grafting supposed to undergo surgery today but because of low white blood cell count, surgery was held and hematology was consulted for this. 11/19/2018 Patient was a valid bank hematology for bicytopenia and bicipital pain is believed secondary to his alcoholism and liver disease. And oncology cleared for surgery hopefully he'll go for coronary artery bypass grafting soon 11/20/2018 Patient will undergo coronary artery bypass grafting today 11/21/2018 Agent is status post coronary artery bypass grafting postoperative day one patient is on low dose of norepinephrine which is being weaned off good urine output patient has 2 rest use 1 left lower 1 mediastinal with significant output from the chest tubes received about 4 PRBC transfusion 11/22/2018 Patient is clinically doing well all the chest tubes and Cordis will be removed today no overnight events. No chest pain at this time. 11/23/2018 Patient still has 1 chest tube eventually removed today otherwise clinically doing all. Patient probably can be discharged tomorrow Constitutional: Denied any fatigue denied any fever. Cardio vascular: denied any chest pain, palpitations Gastrointestinal denied any nausea vomiting Pulmonary: Denied any shortness of breath cough Neurologic denied any new focal deficits All inpatient medications were reviewed and appropriate changes in these medications as dictated in the interval history and assessment and plan. Objective - Vital Signs Vital signs: Vital Signs Temp 98.6 F 11/23/18 08:07 Pulse 85 11/23/18 09:13 Resp 18 11/23/18 08:07 BP 124/64 11/23/18 09:13 Pulse Ox 95 11/23/18 09:13 Intake & Output 11/22/18 11/23/18 11/23/18 18:59 06:59 18:59 Intake Total 798 490 Output Total 120 200 535 Balance 678 -200 -45 Weight 65.3 kg Intake: IV 138 Lactated Ringers 1,000 ml 120 @ 20 mls/hr IV .Q24H [facility] Rx#:[id number] pressure bag 0.9 18 Oral 660 490 Output: Chest Tube Drainage 120 85 Left Pleural/Mediastinal 120 85 Urine 0 200 450 Other: Voiding Method Urinal Urinal # Voids 50 1 ABP, PAP, CO, CI - Last Documented Arterial Blood Pressure 62/51 Pulmonary Artery Pressure 24/7 Cardiac Output 7.4 Cardiac Index 4.3 - Exam PHYSICAL EXAMINATION: GENERAL: The patient is alert and oriented x3, not in any acute distress. Well developed, well nourished. HEENT: Pupils are round and equally reacting to light. EOMI. No scleral icterus. No conjunctival pallor. Normocephalic, atraumatic. No pharyngeal erythema. No thyromegaly. CARDIOVASCULAR: S1 and S2 present. No murmurs, rubs, or gallops. PULMONARY: Chest is clear to auscultation, no wheezing or crackles. Chest tubes as mentioned above ABDOMEN: Soft, nontender, nondistended, normoactive bowel sounds. No palpable organomegaly. MUSCULOSKELETAL: No joint swelling or deformity. EXTREMITIES: No cyanosis, clubbing, or pedal edema. NEUROLOGICAL: Gross neurological examination did not reveal any focal deficits. SKIN: No rashes. - Labs CBC & Chem 7: 11/23/18 05:48 11/23/18 05:48 Labs: Abnormal Lab Results - Last 24 Hours (Table) 11/22/18 11/22/18 11/23/18 Range/Units 11:54 20:14 02:32 WBC (3.8-10.6) k/uL RBC (4.30-5.90) m/uL Hgb (13.0-17.5) gm/dL Hct (39.0-53.0) % RDW (11.5-15.5) % Lymphocytes # (1.0-4.8) k/uL Sodium (137-145) mmol/L POC Glucose (mg/dL) 71 L 118 H 100 H (75-99) mg/dL 11/23/18 11/23/18 11/23/18 Range/Units 05:48 05:48 06:06 WBC 2.9 L (3.8-10.6) k/uL RBC 2.26 L (4.30-5.90) m/uL Hgb 7.0 L (13.0-17.5) gm/dL Hct 22.2 L (39.0-53.0) % RDW 16.7 H (11.5-15.5) % Lymphocytes # 0.7 L (1.0-4.8) k/uL Sodium 136 L (137-145) mmol/L POC Glucose (mg/dL) 109 H (75-99) mg/dL 11/23/18 Range/Units 11:17 WBC (3.8-10.6) k/uL RBC (4.30-5.90) m/uL Hgb (13.0-17.5) gm/dL Hct (39.0-53.0) % RDW (11.5-15.5) % Lymphocytes # (1.0-4.8) k/uL Sodium (137-145) mmol/L POC Glucose (mg/dL) 100 H (75-99) mg/dL Assessment and Plan Plan: -Acute non-ST elevation myocardial infarction: Stenosis of LAD patient is on antiplatelet therapy beta john statin, CABG yesterday with her chest tubes in place postoperative day 3 today -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
--- NOTE | 2018-11-23 13:56 | P.PN ---
Subjective Progress Note Date: 11/23/18 Principal diagnosis: Non-STEMI, severe triple vessel coronary artery disease with left main disease. History of hypertension, hyperlipidemia, tobacco dependence with preoperative FEV1 79% of predicted, and family history of early coronary artery disease. Preoperative bicytopenia. POD #3 urgent off-pump coronary artery bypass graft 3 with the left internal mammary artery to the proximal left anterior descending artery, a reverse greater saphenous vein graft to the obtuse marginal artery, a reverse greater saphenous vein graft to the posterior descending coronary artery with endovascular vein harvest of the right thigh greater saphenous vein and intraoperative transesophageal echocardiogram completed by anesthesia. Sternal bone marrow biopsy. Postoperative acute blood loss anemia, an expected outcome as patient had preoperative anemia. The patient is currently sitting up to the bedside chair on 3 S. cardiac stepdown unit. He is in no acute distress. He denies any complaints of pain or shortness of breath at this time. Remote telemetry showing normal sinus rhythm heart rate 83. He remains hemodynamically stable. The patient has a left pleural chest tube in place to low continuous wall suction -20 cm H2O. He reports that he has been ambulating in the hallway without difficulty or shortness of breath. The patient's is at his bedside. Objective - Vital Signs Vital signs: Vital Signs Temp 97.8 F 11/23/18 11:55 Pulse 94 11/23/18 13:14 Resp 16 11/23/18 11:55 BP 121/67 11/23/18 11:55 Pulse Ox 93 L 11/23/18 11:55 Intake & Output 11/22/18 11/23/18 11/23/18 18:59 06:59 18:59 Intake Total 798 490 Output Total 120 200 910 Balance 678 -200 -420 Weight 65.3 kg Intake: IV 138 Lactated Ringers 1,000 ml 120 @ 20 mls/hr IV .Q24H [facility] Rx#:[id number] pressure bag 0.9 18 Oral 660 490 Output: Chest Tube Drainage 120 185 Left Pleural/Mediastinal 120 185 Urine 0 200 725 Other: Voiding Method Urinal Urinal # Voids 50 1 ABP, PAP, CO, CI - Last Documented Arterial Blood Pressure 62/51 Pulmonary Artery Pressure 24/7 Cardiac Output 7.4 Cardiac Index 4.3 - Constitutional General appearance: Present: cooperative, no acute distress, thin - Respiratory Details: Lungs sounds essentially clear throughout, diminished to his bilateral bases. Respirations are symmetrical and nonlabored. Oxygen saturation are 96% on room air. He is achieving 1500 mL on his incentive spirometry. Left pleural chest tube remains in place to low continuous wall suction -20 cm H2O. Draining thin serosanguineous drainage. No air leaks present. 85 mL output in the last 24 hours. - Cardiovascular Details: Regular rhythm and rate. S1 and S2 present, negative for S3, gallop or murmur. Sternum is stable. Remote telemetry showing normal sinus rhythm heart rate 83. No edema present. Heart hugger is in place and he is demonstrating appropriate use. Knee-high BARTOLO hose and sequential compression devices in place to his bilateral lower extremities. - Gastrointestinal Gastrointestinal Comment(s): Abdomen is soft, nontender and nondistended. Active bowel sounds present all 4 abdominal quadrants. Tolerating oral intake. Bowel movement this a.m. - Genitourinary Genitourinary Comment(s): Voiding clear yellow urine. 450 mL output in the last 8 hours. - Integumentary Integumentary Comment(s): Skin is warm and dry. No clubbing or cyanosis present. Midline sternal incision is clean, dry and approximated. No drainage or redness is present. Gauze dressing is clean and dry. Right lower extremity EVH sites clean, dry and approximated. No drainage or redness present. - Neurologic Neurologic: Present: CNII-XII intact - Musculoskeletal Musculoskeletal: Present: gait normal, strength equal bilaterally - Psychiatric Psychiatric: Present: A&O x's 3, appropriate affect, intact judgment & insight - Allied health notes Allied health notes reviewed: nursing - Labs CBC & Chem 7: 11/23/18 05:48 11/23/18 05:48 Labs: Abnormal Lab Results - Last 24 Hours (Table) 11/22/18 11/23/18 11/23/18 Range/Units 20:14 02:32 05:48 WBC 2.9 L (3.8-10.6) k/uL RBC 2.26 L (4.30-5.90) m/uL Hgb 7.0 L (13.0-17.5) gm/dL Hct 22.2 L (39.0-53.0) % RDW 16.7 H (11.5-15.5) % Lymphocytes # 0.7 L (1.0-4.8) k/uL Sodium (137-145) mmol/L POC Glucose (mg/dL) 118 H 100 H (75-99) mg/dL 11/23/18 11/23/18 11/23/18 Range/Units 05:48 06:06 11:17 WBC (3.8-10.6) k/uL RBC (4.30-5.90) m/uL Hgb (13.0-17.5) gm/dL Hct (39.0-53.0) % RDW (11.5-15.5) % Lymphocytes # (1.0-4.8) k/uL Sodium 136 L (137-145) mmol/L POC Glucose (mg/dL) 109 H 100 H (75-99) mg/dL - Imaging and Cardiology Chest x-ray: report reviewed, image reviewed Assessment and Plan (1) NSTEMI (non-ST elevated myocardial infarction) Current Visit: Yes Status: Acute Code(s): I21.4 - NON-ST ELEVATION (NSTEMI) MYOCARDIAL INFARCTION SNOMED Code(s): 99390768 (2) Family history of early CAD Current Visit: Yes Status: Chronic Code(s): Z82.49 - FAMILY HX OF ISCHEM HEART DIS AND OTH DIS OF THE CIRC SYS SNOMED Code(s): 483178692 (3) Hyperlipidemia Current Visit: Yes Status: Chronic Code(s): E78.5 - HYPERLIPIDEMIA, UNSPECIFIED SNOMED Code(s): 30517824 (4) Hypertension Current Visit: Yes Status: Chronic Code(s): I10 - ESSENTIAL (PRIMARY) HYPERTENSION SNOMED Code(s): 47134903 (5) Tobacco dependence Current Visit: Yes Status: Chronic Code(s): F17.200 - NICOTINE DEPENDENCE, UNSPECIFIED, UNCOMPLICATED SNOMED Code(s): 03431609 Plan: 1. Continue aspirin, statin, Plavix and beta john. Will increase beta john as tolerated. 2. Encourage incentive spirometry is 10 times every hour while awake. 3. Encourage smoking cessation, discussed the importance of smoking cessation. 4. Bronchodilators per pulmonology management. 5. Continue oral iron, vitamin B/C/folic acid complex. 6. Increase activity as tolerated, ambulate as tolerated. PT/OT/cardiac rehab following. 7. Discontinue left pleural chest tube. 8. Pain controlled current medication regimen. 9. Will monitor daily labs and x-rays. Electrolyte replacement per protocol. No further transfusions at this time. 10. GI prophylaxis with Protonix, DVT prophylaxis with subcu heparin, SCDs. 11. Insulin management per primary care service. 12. Bone marrow biopsy is pending results. 13. More recommendations to follow based on patient's clinical course. Discharge planning is in place. Time with Patient: Greater than 30
--- NOTE | 2018-11-23 14:13 | P.PN ---
Subjective Progress Note Date: 11/23/18 Principal diagnosis: Non-ST segment elevation myocardial infarction, severe triple vessel disease This is a very pleasant 58-year-old gentleman who follows with Dr. Land as his primary care physician. He resides in [place]. He has a history of hypertension and chronic and ongoing tobacco dependence of approximate 40 years. This has a family history with of coronary artery disease with his father having a heart attack in his 50s and triple bypass surgery. He had presented to [facility] emergency room yesterday morning after awaking approximate 5 AM with chest pain. He was able to walk around and at times it down to rest and the pain seemed to subside. He then went to work the pain waxing and waning until 8:00 in the morning. Following that he did go into the [facility] emergency room. EKG there did not reveal any ST or T wave abnormalities. Chest x-ray showed no acute pulmonary process. He states he does not have any other significant symptoms. No diaphoresis, no nausea or vomiting, no radiation. No worsening shortness of breath. Repeat EKG revealed some nonspecific ST and T-wave abnormalities in the inferior leads. He was transferred here for the same last evening. Peak troponin last night was 4.25. White count 2.4. Hemoglobin 9.1. Creatinine 0.59. He did undergo cardiac catheterization today that revealed a calcified coronary arteries with severe triple-vessel disease with severe left main disease with 95% stenosis distally him a 95% left anterior descending artery, 99% stenosis of the left circumflex, 99% stenosis of the RCA.. Preserved left ventricular systolic function with ejection fraction 50%. He has been seen and evaluated by cardiothoracic surgery and the plan is for urgent coronary artery bypass grafting tomorrow morning with Dr. Medina. The patient is seen today in consultation in the intensive care unit. He is awake and alert in no acute distress. He has not been seen by a beam builder in the past. He denies any shortness of breath or dyspnea on exertion in the outpatient setting. No oxygen. No inhalers in the past. Able to do his stated activities without any significant shortness of breath. Up until yesterday when the chest pain started he had been in his normal state of health. He is maintaining good O2 saturations in the mid 90s on room air. He' s been afebrile. Hemodynamically stable. He remains on heparin drip. 0.9 normal saline at 100 ML's per hour. Bedside spirometry revealed FEV1 value 79% of predicted. 11/18/2018: This 58-year-old male patient has triple-vessel disease and here patient is status post non-ST segment elevation myocardial infarction. The patient was supposed to undergo bypass surgery today. The surgery was canceled as the patient was found to have a low white cell count and his white cell count was at 1.7 with significant lymphocytosis. The patient's hemoglobin was also low at 8.1. As such, surgery was canceled and the patient was asked to have a hematology oncology evaluation prior to him undergoing his cardiac surgery. He is doing well. He has no specific complaints. No shortness of breath. He is fairly of any chest pain. No nausea vomiting or diarrhea. Is tolerating his diet. The plan is to still undergo the surgery after a hematologic evaluation is completed. He is afebrile. He is hemodynamically stable at this point in time. The patient is seen again today 11/19/2018 in follow-up in the intensive care unit. He is awake and alert in no acute distress. He has not had any further chest discomfort. He remains on a heparin drip. He has not had any shortness of breath cough or congestion. He is maintaining O2 saturations in the 90s on room air. The patient has been seen and evaluated by oncology. He feel the patient should proceed with coronary revascularization and if needed growth factors could be utilized. White count 2.1. Hemoglobin 7.6. Creatinine 0.60. On 11/20/2018 patient seen in follow-up in the intensive care unit. Awake and alert, in no acute distress. In sinus rhythm with a controlled rate, denies any difficulty breathing. Denies any chest pain. White blood cell count on this morning's labs is 2.0, hemoglobin is 7.7, patient is receiving a transfusion of a unit of packed red blood cells. Serum sodium is 138, potassium is 4.2, chloride is 111, B1 is 9 and creatinine 0.61, 50s were within normal limits. His morning's chest x-ray has been reviewed with Dr. Perla, and shows atelectasis in the right lower lobe. No fever or chills, vital signs are stable. She is working on his incentive spirometer, lung sounds are clear. IV iron transfusions were started per hematology. Patient is scheduled for urgent off-pump coronary artery bypass grafting today utilizing SANDOVAL and endovascular vein harvest. Hematology is closely following, no obvious source of bleeding. On 11/23/2018 patient seen in follow-up selective care unit. He sitting up in the chair, in no acute distress, currently on room air, denies any dyspnea, his pain is under good control, this is postop day 3, status post three-vessel coronary artery bypass grafting. Today's chest x-ray shows tiny apical pneumothorax on the right, left-sided chest tube remains in position, and a small right pleural effusion. There has been a total of 120 ML out of the left pleural chest tube over the last 24 hours. He has been tolerating ambulation, he is able to achieve 1500 mL on the incentive spirometer today, today's labs have been reviewed showed white blood cell count of 2.9, hemoglobin of 7.0, serum sodium is 136, the rest the electrolytes and renal profile are all within normal limits. Lung sounds are diminished, with bibasilar rales. Objective - Vital Signs Vital signs: Vital Signs Temp 97.8 F 11/23/18 11:55 Pulse 96 11/23/18 13:21 Resp 16 11/23/18 11:55 BP 121/67 11/23/18 11:55 Pulse Ox 93 L 11/23/18 11:55 Intake & Output 11/22/18 11/23/18 11/23/18 18:59 06:59 18:59 Intake Total 798 490 Output Total 120 200 910 Balance 678 -200 -420 Weight 65.3 kg Intake: IV 138 Lactated Ringers 1,000 ml 120 @ 20 mls/hr IV .Q[facility]H [facility] Rx#:[id number] pressure bag 0.9 18 Oral 660 490 Output: Chest Tube Drainage 120 185 Left Pleural/Mediastinal 120 185 Urine 0 200 725 Other: Voiding Method Urinal Urinal # Voids 50 1 ABP, PAP, CO, CI - Last Documented Arterial Blood Pressure 62/51 Pulmonary Artery Pressure 24/7 Cardiac Output 7.4 Cardiac Index 4.3 - Exam GENERAL EXAM: Alert, pleasant, 58-year-old white male, comfortable in no apparent distress. HEAD: Normocephalic/atraumatic. EYES: Normal reaction of pupils, equal size. Conjunctiva pink, sclera white. NOSE: Clear with pink turbinates. THROAT: No erythema or exudates. NECK: No masses, no JVD, no thyroid enlargement, no adenopathy. CHEST: No chest wall deformity. Symmetrical expansion. Sternal incision is clean dry and intact, well approximated, stable, currently with a surgical dressing, left pleural chest tube is in place, and there is a small serosanguineous output in the Pleur-evac LUNGS: Equal air entry with no crackles, wheeze, rhonchi or dullness. CVS: Regular rate and rhythm, normal S1 and S2, no gallops, no murmurs, no rubs ABDOMEN: Soft, nontender. No hepatosplenomegaly, normal bowel sounds, no guarding or rigidity. EXTREMITIES: No clubbing, no edema, no cyanosis, 2+ pulses and upper and lower extremities. MUSCULOSKELETAL: Muscle strength and tone normal. SPINE: No scoliosis or deformity SKIN: No rashes CENTRAL NERVOUS SYSTEM: Alert and oriented -3. No focal deficits, tone is normal in all 4 extremities. PSYCHIATRIC: Alert and oriented -3. Appropriate affect. Intact judgment and insight. - Labs CBC & Chem 7: 11/23/18 05:48 11/23/18 05:48 Labs: Abnormal Lab Results - Last 24 Hours (Table) 11/22/18 11/23/18 11/23/18 Range/Units 20:14 02:32 05:48 WBC 2.9 L (3.8-10.6) k/uL RBC 2.26 L (4.30-5.90) m/uL Hgb 7.0 L (13.0-17.5) gm/dL Hct 22.2 L (39.0-53.0) % RDW 16.7 H (11.5-15.5) % Lymphocytes # 0.7 L (1.0-4.8) k/uL Sodium (137-145) mmol/L POC Glucose (mg/dL) 118 H 100 H (75-99) mg/dL 11/23/18 11/23/18 11/23/18 Range/Units 05:48 06:06 11:17 WBC (3.8-10.6) k/uL RBC (4.30-5.90) m/uL Hgb (13.0-17.5) gm/dL Hct (39.0-53.0) % RDW (11.5-15.5) % Lymphocytes # (1.0-4.8) k/uL Sodium 136 L (137-145) mmol/L POC Glucose (mg/dL) 109 H 100 H (75-99) mg/dL Assessment and Plan Plan: Assessment: #1 acute non-ST segment elevation myocardial infarction. #2 Significant triple-vessel coronary artery disease per cardiac catheterization , status post three-vessel coronary artery bypass grafting, off pump, with SANDOVAL to the proximal LAD, SVG to the up to his marginal, and SVG to the PDA with endovascular vein harvest and sternal bone marrow biopsy, post-op day 3 #3 Chronic and ongoing tobacco dependence. FEV1 value 79% of predicted. #4 Hypertension. #5 anemia, stable hemoglobin, expected outcome following surgery. Note that the patient had a baseline chronic anemia possibly secondary to splenic sequestration versus a component of mild dysplasia. A bone marrow aspirate was obtained intraoperatively. #6 leukopenia with lymphocytosis. The white cell count has improved and the patient's absolute neutrophil count is about thousand. No signs of any sepsis. #7 family history of premature artery disease in patient's father Plan: Continue encouraging deep breathing and coughing, today's chest x-ray has been reviewed, and there is a small right pleural effusion, and tiny right apical pneumothorax, left-sided pleural chest tube remains in place, with small amount of serosanguineous output. No difficulty breathing, his pain is under good control, tolerating ambulation. Vital signs are stable, no fever or chills. Continue to follow I performed a history & physical examination of the patient and discussed their management with my nurse practitioner, Ele Galloway. I reviewed the nurse practitioner's note and agree with the documented findings and plan of care. Lung sounds are positive for diminished breath sounds. The findings and the impression was discussed with the patient. I attest to the documentation by the nurse practitioner. Time with Patient: Less than 30
[2018-11-23 16:38] LABS: Glucose,Whole Blood 103 mg/dL (75-99)
--- NOTE | 2018-11-23 19:23 | P.PN ---
Subjective Progress Note Date: 11/23/18 Principal diagnosis: Bicytopenia Seen and evaluated, Up in chair in no acute distresss during evaluation Objective - Vital Signs Vital signs: Vital Signs Temp 98.7 F 11/23/18 15:59 Pulse 85 11/23/18 15:59 Resp 16 11/23/18 15:59 BP 129/71 11/23/18 15:59 Pulse Ox 93 L 11/23/18 15:59 Intake & Output 11/23/18 11/23/18 11/24/18 06:59 18:59 06:59 Intake Total 490 Output Total 200 910 Balance -200 -420 Weight 65.3 kg Intake: Oral 490 Output: Chest Tube Drainage 185 Left Pleural/Mediastinal 185 Urine 200 725 Other: Voiding Method Urinal # Voids 1 # Bowel Movements 1 ABP, PAP, CO, CI - Last Documented Arterial Blood Pressure 62/51 Pulmonary Artery Pressure 24/7 Cardiac Output 7.4 Cardiac Index 4.3 - Exam GENERAL: Alert, no apparent distress. HEAD: NC NT EYES: Conjunctiva pink, sclera non-icterus NECK: Supple, no adenopathy. CHEST: No chest wall deformity. Symmetrical expansion. Sternal incision is clean dry and intact surgical dressing, left pleural chest tube is in place, and there is a small amount output in the Pleur-evac LUNGS: No increased effort, CTA B, DIminished bases CVS: Regular rate and rhythm, normal S1 and S2 ABDOMEN: Soft, nontender. No organomegaly, normal bowel sounds EXTREMITIES: no edema, no rash 2+ pulses BEURO: No focal deficits, tone is normal in all 4 extremities. PSYCH: Appropriate affect. Intact judgment and insight. - Labs CBC & Chem 7: 11/23/18 05:48 11/23/18 05:48 Labs: Abnormal Lab Results - Last 24 Hours (Table) 11/22/18 11/23/18 11/23/18 Range/Units 20:14 02:32 05:48 WBC 2.9 L (3.8-10.6) k/uL RBC 2.26 L (4.30-5.90) m/uL Hgb 7.0 L (13.0-17.5) gm/dL Hct 22.2 L (39.0-53.0) % RDW 16.7 H (11.5-15.5) % Lymphocytes # 0.7 L (1.0-4.8) k/uL Sodium (137-145) mmol/L POC Glucose (mg/dL) 118 H 100 H (75-99) mg/dL 11/23/18 11/23/18 11/23/18 Range/Units 05:48 06:06 11:17 WBC (3.8-10.6) k/uL RBC (4.30-5.90) m/uL Hgb (13.0-17.5) gm/dL Hct (39.0-53.0) % RDW (11.5-15.5) % Lymphocytes # (1.0-4.8) k/uL Sodium 136 L (137-145) mmol/L POC Glucose (mg/dL) 109 H 100 H (75-99) mg/dL 11/23/18 Range/Units 16:37 WBC (3.8-10.6) k/uL RBC (4.30-5.90) m/uL Hgb (13.0-17.5) gm/dL Hct (39.0-53.0) % RDW (11.5-15.5) % Lymphocytes # (1.0-4.8) k/uL Sodium (137-145) mmol/L POC Glucose (mg/dL) 103 H (75-99) mg/dL Assessment and Plan Plan: Assessment and Plan (1) Bicytopenia - Hemoglobin is 7 today - Status Post sternal biopsy, that was sent for bone marrow examination. - A full hematopathology exam would not be possible without an aspirate, including flow cytometry and genetic studies. However morphologic evaluation, and staining for excess abnormal population such as blasts could potentially provide some additional information. - The aspiration biopsy will be planned once the patient is more Stable medically. - Bone Path is still pending - Daily CBC, Transfusion likely Friday Continue to monitor. (2) NSTEMI (non-ST elevated myocardial infarction) Status post CABG. Patient appears to have tolerated the procedure well without no significant complications so far Physician Attest: I have completed the full history and physical of this patient and agree with above dictation, dictated as a scribe
[2018-11-23 20:38] LABS: Glucose,Whole Blood 118 mg/dL (75-99)
[2018-11-23] MEDS: METOPROLOL TARTRATE 25 MG TAB PO SCH (22:49)
[2018-11-23] MEDS: SENNOSIDES-DOCUSATE SODIUM 1 EACH TAB PO SCH (22:50)
[2018-11-24] MEDS: HEPARIN SODIUM,PORCINE 5,000 UNIT/ML 1 ML VIAL SQ SCH ×2 (00:30→09:35)
[2018-11-24 01:52] LABS: Glucose,Whole Blood 108 mg/dL (75-99)
[2018-11-24 05:32] LABS: Glucose,Whole Blood 112 mg/dL (75-99)
[2018-11-24 05:39] VITALS: TEMP 98.3
[2018-11-24] MEDS: INSULIN ASPART (NovoLOG) 100 UNIT/ML VIAL SQ SCH ×3 (06:34→12:29)
[2018-11-24] MEDS: KETOROLAC 30 MG/ML 1 ML VIAL IVP SCH ×3 (06:41→12:29)
[2018-11-24] MEDS: PANTOPRAZOLE 40 MG TABLET PO SCH (06:43)
[2018-11-24] MEDS: FERROUS SULFATE 325 MG TAB PO SCH (06:43)
[2018-11-24 06:59] LABS: Anisocytosis Slight; Basophils % (A) 0 %; Eosinophils # (A) 0.1 k/uL (0-0.7); Eosinophils % (A) 5 %; HCT 21.9 % (39.0-53.0); Lymphocytes # (A) 0.7 k/uL (1.0-4.8); Lymphocytes % (A) 25 %; MCHC 31.6 g/dL (31.0-37.0); MCV 98.2 fL (80.0-100.0); Macrocytosis Slight; Mean Platelet Volume 6.7; Monocytes # (A) 0.2 k/uL (0-1.0); Monocytes % (A) 9 %; Neutrophils # (A) 1.5 k/uL (1.3-7.7); Neutrophils % (A) 58 %; Platelet Count 262 k/uL (150-450); RBC 2.24 m/uL (4.30-5.90); RDW 16.6 % (11.5-15.5); WBC 2.7 k/uL (3.8-10.6)
[2018-11-24 07:02] LABS: Anion Gap 5 mmol/L; Blood Urea Nitrogen 14 mg/dL (9-20); Calcium 8.7 mg/dL (8.4-10.2); Carbon Dioxide 25 mmol/L (22-30); Chloride 108 mmol/L (98-107); Glucose 94 mg/dL (74-99); Potassium 4.1 mmol/L (3.5-5.1); Sodium 138 mmol/L (137-145)
[2018-11-24 07:19] LABS: HGB 6.9 gm/dL (13.0-17.5)
--- NOTE | 2018-11-24 08:33 | XR ---
EXAMINATION TYPE: XR chest 2V DATE OF EXAM: 11/24/2018 COMPARISON: 11/23/2018 HISTORY: 58 year-old male post cardiac surgery TECHNIQUE: PA and lateral views FINDINGS: Median sternotomy wires are present with post-CABG clips in the mediastinum. Heart upper limits of no rmal in size. Mild interstitial prominence is similar with trace pleural effusions and some patchy bi basilar opacities. Previous trace right apical pneumothorax is no longer identified. IMPRESSION: 1. Previous trace right apical pneumothorax no longer identified. 2. Persistent trace effusions with adjacent bibasilar atelectasis and/or consolidation.
[2018-11-24] MEDS: CLOPIDOGREL 75 MG TAB PO SCH (09:35)
[2018-11-24] MEDS: METOPROLOL TARTRATE 25 MG TAB PO SCH (09:35)
[2018-11-24] MEDS: ATORVASTATIN 40 MG TAB PO SCH (09:35)
[2018-11-24] MEDS: FOLIC ACID-VIT B COMPLEX-VIT C 1 CAP PO SCH (09:35)
[2018-11-24] MEDS: ASPIRIN 325 MG TAB PO SCH (09:35)
[2018-11-24] MEDS: IPRATROPIUM-ALBUTEROL 3 ML NEB INHALATION SCH ×2 (09:49→13:17)
[2018-11-24 09:53] VITALS: RESP 16
--- NOTE | 2018-11-24 10:40 | P.PN ---
Subjective Progress Note Date: 11/24/18 Principal diagnosis: Non-STEMI, subendocardial infarction, severe triple vessel coronary artery disease with left main disease. Previous medical history of hypertension, hyperlipidemia, tobacco dependence with preoperative FEV1 79% of predicted, and family history of early coronary artery disease. Preoperative bicytopenia of unknown origin. POD #4 urgent off-pump coronary artery bypass graft 3 with the left internal mammary artery to the proximal left anterior descending artery, reverse saphenous vein graft to the obtuse marginal artery, reverse saphenous vein graft to the posterior descending coronary artery with endovascular vein harvest of the right thigh and intraoperative transesophageal echocardiogram by anesthesia. Sternal bone marrow biopsy. Postoperative acute blood loss anemia, expected as patient was anemic preoperatively. The patient is currently sitting up in the recliner in no acute distress. States pain is controlled on current medication regimen, denies shortness of breath. No new complaints or concerns. Remains in normal sinus rhythm. States he has ambulated in the hallway. States he feels ready to go home today but not sure if he has a ride. Objective - Vital Signs Vital signs: Vital Signs Temp 98.3 F 11/24/18 04:00 Pulse 77 11/24/18 10:01 Resp 16 11/24/18 10:01 BP 119/66 11/24/18 04:00 Pulse Ox 94 L 11/24/18 09:49 Intake & Output 11/23/18 11/24/18 11/24/18 18:59 06:59 18:59 Intake Total 490 120 Output Total 910 675 Balance -420 -675 120 Weight 66.8 kg Intake: Oral 490 120 Output: Chest Tube Drainage 185 Left Pleural/Mediastinal 185 Urine 725 675 Other: Voiding Method Urinal # Voids 1 375 # Bowel Movements 1 ABP, PAP, CO, CI - Last Documented Arterial Blood Pressure 62/51 Pulmonary Artery Pressure 24/7 Cardiac Output 7.4 Cardiac Index 4.3 - Constitutional General appearance: Present: cooperative, no acute distress - Respiratory Details: Lungs sounds diminished bilaterally. Respirations even, nonlabored. Currently on room air with oxygen saturation 94%. Able to achieve 7049-6136 mL on his incentive spirometry. Strong productive cough. - Cardiovascular Details: S1, S2 present. Regular rate and rhythm, sinus rhythm on telemetry. Sternum stable. Palpable peripheral pulses bilaterally. No edema present. No calf pain or tenderness noted. Heart hugger in place with patient demonstrating appropriate use. Antiembolism stockings, SCDs present. - Gastrointestinal Gastrointestinal Comment(s): Abdomen soft, nontender, nondistended. Active bowel sounds present 4 quadrants. Tolerating diet. Positive bowel movement 11/23. - Genitourinary Genitourinary Comment(s): Continues to void clear yellow urine. Output last visit 675 mL. - Integumentary Integumentary Comment(s): Skin is warm and dry with evidence of good perfusion. Anterior chest incision well approximated and covered with dry intact dressing. Right lower extremity EVH site well approximated. - Neurologic Neurologic: Present: CNII-XII intact - Musculoskeletal Musculoskeletal: Present: gait normal, strength equal bilaterally - Psychiatric Psychiatric: Present: A&O x's 3, appropriate affect, intact judgment & insight - Allied health notes Allied health notes reviewed: nursing - Labs CBC & Chem 7: 11/24/18 06:08 11/24/18 06:08 Labs: Abnormal Lab Results - Last 24 Hours (Table) 11/23/18 11/23/18 11/23/18 Range/Units 11:17 16:37 20:36 WBC (3.8-10.6) k/uL RBC (4.30-5.90) m/uL Hgb (13.0-17.5) gm/dL Hct (39.0-53.0) % RDW (11.5-15.5) % Lymphocytes # (1.0-4.8) k/uL Chloride (98-107) mmol/L POC Glucose (mg/dL) 100 H 103 H 118 H (75-99) mg/dL 11/24/18 11/24/18 11/24/18 Range/Units 01:51 05:29 06:08 WBC 2.7 L (3.8-10.6) k/uL RBC 2.24 L (4.30-5.90) m/uL Hgb 6.9 L* (13.0-17.5) gm/dL Hct 21.9 L (39.0-53.0) % RDW 16.6 H (11.5-15.5) % Lymphocytes # 0.7 L (1.0-4.8) k/uL Chloride (98-107) mmol/L POC Glucose (mg/dL) 108 H 112 H (75-99) mg/dL 11/24/18 Range/Units 06:08 WBC (3.8-10.6) k/uL RBC (4.30-5.90) m/uL Hgb (13.0-17.5) gm/dL Hct (39.0-53.0) % RDW (11.5-15.5) % Lymphocytes # (1.0-4.8) k/uL Chloride 108 H (98-107) mmol/L POC Glucose (mg/dL) (75-99) mg/dL - Imaging and Cardiology Chest x-ray: report reviewed, image reviewed Assessment and Plan (1) Hypertension Current Visit: Yes Status: Chronic Code(s): I10 - ESSENTIAL (PRIMARY) HYPERTENSION SNOMED Code(s): 44330337 (2) Hyperlipidemia Current Visit: Yes Status: Chronic Code(s): E78.5 - HYPERLIPIDEMIA, UNSPECIFIED SNOMED Code(s): 05987766 (3) Tobacco dependence Current Visit: Yes Status: Chronic Code(s): F17.200 - NICOTINE DEPENDENCE, UNSPECIFIED, UNCOMPLICATED SNOMED Code(s): 86714179 (4) Family history of early CAD Current Visit: Yes Status: Chronic Code(s): Z82.49 - FAMILY HX OF ISCHEM HEART DIS AND OTH DIS OF THE CIRC SYS SNOMED Code(s): 588095048 (5) NSTEMI (non-ST elevated myocardial infarction) Current Visit: Yes Status: Acute Code(s): I21.4 - NON-ST ELEVATION (NSTEMI) MYOCARDIAL INFARCTION SNOMED Code(s): 80660009 Plan: 1. Continue aspirin, statin, Plavix, beta john therapy. Will increase beta john therapy as tolerated. 2. Encourage incentive spirometry is 10 times every hour while awake. 3. Encourage smoking cessation. 4. Bronchodilators per pulmonology. 5. Continue oral iron, vitamin B/C/folic acid complex. 6. Increase activity, ambulate as tolerated. PT/OT/cardiac rehab following. 7. Will monitor daily labs and x-rays. Electrolyte replacement per protocol. No further transfusions at this time. 8. Pain controlled current medication regimen. 9. Insulin management per primary care service. 10. GI prophylaxis with Protonix, DVT prophylaxis with subcu heparin, SCDs. 11. Bone marrow biopsy completed from sternum, await results. 12. Anticipate discharge to home with home care later today versus tomorrow. Clinically we feel patient is able to go home today, however he does express concerns that he will not have a ride until tomorrow morning. 13. More recommendations to follow. Time with Patient: Greater than 30
[2018-11-24 12:11] LABS: Glucose,Whole Blood 131 mg/dL (75-99)
--- NOTE | 2018-11-24 12:19 | P.PN ---
Subjective 58-year-old admitted for chest pain found have non-ST elevation microinfarction underwent recatheterization showed stenosis of LAD. Patient was evaluated by carotid thoracic surgery for coronary artery bypass grafting supposed to undergo surgery today but because of low white blood cell count, surgery was held and hematology was consulted for this. 11/19/2018 Patient was a valid bank hematology for bicytopenia and bicipital pain is believed secondary to his alcoholism and liver disease. And oncology cleared for surgery hopefully he'll go for coronary artery bypass grafting soon 11/20/2018 Patient will undergo coronary artery bypass grafting today 11/21/2018 Agent is status post coronary artery bypass grafting postoperative day one patient is on low dose of norepinephrine which is being weaned off good urine output patient has 2 rest use 1 left lower 1 mediastinal with significant output from the chest tubes received about 4 PRBC transfusion 11/22/2018 Patient is clinically doing well all the chest tubes and Cordis will be removed today no overnight events. No chest pain at this time. 11/23/2018 Patient still has 1 chest tube eventually removed today otherwise clinically doing all. Patient probably can be discharged tomorrow 11/24/2018 Patient's chest tubes were removed patient is doing well patient will be discharged either today or tomorrow morning. Constitutional: Denied any fatigue denied any fever. Cardio vascular: denied any chest pain, palpitations Gastrointestinal denied any nausea vomiting Pulmonary: Denied any shortness of breath cough Neurologic denied any new focal deficits All inpatient medications were reviewed and appropriate changes in these medications as dictated in the interval history and assessment and plan. Objective - Vital Signs Vital signs: Vital Signs Temp 98.3 F 11/24/18 08:00 Pulse 77 11/24/18 10:01 Resp 16 11/24/18 10:01 BP 124/69 11/24/18 08:00 Pulse Ox 94 L 11/24/18 09:49 Intake & Output 11/23/18 11/24/18 11/24/18 18:59 06:59 18:59 Intake Total 490 120 Output Total 910 675 Balance -420 -675 120 Weight 66.8 kg Intake: Oral 490 120 Output: Chest Tube Drainage 185 Left Pleural/Mediastinal 185 Urine 725 675 Other: Voiding Method Urinal # Voids 1 375 # Bowel Movements 1 ABP, PAP, CO, CI - Last Documented Arterial Blood Pressure 62/51 Pulmonary Artery Pressure 24/7 Cardiac Output 7.4 Cardiac Index 4.3 - Exam PHYSICAL EXAMINATION: GENERAL: The patient is alert and oriented x3, not in any acute distress. Well developed, well nourished. HEENT: Pupils are round and equally reacting to light. EOMI. No scleral icterus. No conjunctival pallor. Normocephalic, atraumatic. No pharyngeal erythema. No thyromegaly. CARDIOVASCULAR: S1 and S2 present. No murmurs, rubs, or gallops. PULMONARY: Chest is clear to auscultation, no wheezing or crackles. Chest tubes as mentioned above ABDOMEN: Soft, nontender, nondistended, normoactive bowel sounds. No palpable organomegaly. MUSCULOSKELETAL: No joint swelling or deformity. EXTREMITIES: No cyanosis, clubbing, or pedal edema. NEUROLOGICAL: Gross neurological examination did not reveal any focal deficits. SKIN: No rashes. - Labs CBC & Chem 7: 11/24/18 06:08 11/24/18 06:08 Labs: Abnormal Lab Results - Last 24 Hours (Table) 11/23/18 11/23/18 11/24/18 Range/Units 16:37 20:36 01:51 WBC (3.8-10.6) k/uL RBC (4.30-5.90) m/uL Hgb (13.0-17.5) gm/dL Hct (39.0-53.0) % RDW (11.5-15.5) % Lymphocytes # (1.0-4.8) k/uL Chloride (98-107) mmol/L POC Glucose (mg/dL) 103 H 118 H 108 H (75-99) mg/dL 11/24/18 11/24/18 11/24/18 Range/Units 05:29 06:08 06:08 WBC 2.7 L (3.8-10.6) k/uL RBC 2.24 L (4.30-5.90) m/uL Hgb 6.9 L* (13.0-17.5) gm/dL Hct 21.9 L (39.0-53.0) % RDW 16.6 H (11.5-15.5) % Lymphocytes # 0.7 L (1.0-4.8) k/uL Chloride 108 H (98-107) mmol/L POC Glucose (mg/dL) 112 H (75-99) mg/dL 11/24/18 Range/Units 11:53 WBC (3.8-10.6) k/uL RBC (4.30-5.90) m/uL Hgb (13.0-17.5) gm/dL Hct (39.0-53.0) % RDW (11.5-15.5) % Lymphocytes # (1.0-4.8) k/uL Chloride (98-107) mmol/L POC Glucose (mg/dL) 131 H (75-99) mg/dL Assessment and Plan Plan: -Acute non-ST elevation myocardial infarction: Stenosis of LAD patient is on antiplatelet therapy beta john statin, CABG yesterday with her chest tubes in place postoperative day 4 today -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
[2018-11-24 12:36] VITALS: BP 157/72; PULSE 74
--- NOTE | 2018-11-24 12:40 | P.DS ---
Providers Date of admission: 11/16/18 15:42 Expected date of discharge: 11/24/18 Attending physician: Preston Gaspar Consults: 11/16/18 15:42 Consult Physician Urgent Consulting Provider: Harsha Dominguez Consult Reason/Comments: nstemi Do you want consulting provider notified?: Yes 11/17/18 14:25 Consult Physician Routine Consulting Provider: Tapan Cast Consult Reason/Comments: cabg Do you want consulting provider notified?: Already Contacted 11/17/18 14:45 Consult Physician Routine Consulting Provider: Cecil Perla Consult Reason/Comments: urgent open heart Do you want consulting provider notified?: Yes Consult to Anesthesia Routine Consulting Provider: Anesthesia,Services Consult Reason/Comments: Cardiac Surgery Pre-Op 11/18/18 07:31 Consult Physician Routine Consulting Provider: Aubrey Hassan Consult Reason/Comments: leukopenia Do you want consulting provider notified?: Yes 11/20/18 07:12 Consult to Anesthesia Routine Consulting Provider: Anesthesia,Services Consult Reason/Comments: Cardiac Surgery Pre-Op 11/20/18 17:26 Consult Physician Routine Consulting Provider: Edy Santana Consult Reason/Comments: medical management Do you want consulting provider notified?: Already Contacted Primary care physician: Cherri Cuellar Diagnosis(es) (1) Hypertension Current Visit: Yes Status: Chronic (2) Hyperlipidemia Current Visit: Yes Status: Chronic (3) Tobacco dependence Current Visit: Yes Status: Chronic (4) Family history of early CAD Current Visit: Yes Status: Chronic (5) NSTEMI (non-ST elevated myocardial infarction) Current Visit: Yes Status: Acute Hospital Course: FINAL DIAGNOSIS: 1. Non-STEMI, subendocardial infarction 2. Severe triple-vessel coronary artery disease with left main disease 3. Hypertension 4. Hyperlipidemia 5. Tobacco dependence. Preoperative FEV1 79% of predicted 6. Family history of early coronary artery disease 7. Preoperative bicytopenia of unknown origin, with postoperative acute blood loss anemia as expected PRINCIPAL PROCEDURE: 1. Urgent off-pump coronary artery bypass graft 3 with left internal mammary artery to the proximal left anterior descending artery, reverse saphenous vein graft to the obtuse marginal, reverse saphenous vein graft to the posterior descending coronary artery 2. Endovascular vein harvest 3. Intraoperative transesophageal echocardiogram by anesthesia 4. Sternal bone marrow biopsy HISTORY OF PRESENT ILLNESS: This is a 58-year-old active gentleman who follows with Dr. Cherri Land on an outpatient basis. He was getting ready for work and began to experience sharp midsternal chest pain without radiation. He had no associated shortness of breath, diaphoresis, nausea, dizziness or any other symptoms. He was eventually relieved with rest. He presented to [facility] for evaluation and treatment. EKG demonstrated normal sinus rhythm without acute ischemic changes. Troponin was mildly elevated at 0.25, patient was ruled in for non-STEMI and transported to [facility] for further management. Subsequent EKG demonstrated normal sinus rhythm with nonspecific STT wave changes in the inferior leads. Troponins continue to elevate with Max troponin 4.2. Patient denied any chest pain since hospitalization. Cardiology was consulted, transthoracic echocardiogram was performed demonstrating normal left ventricular function with EF 55%, mild mitral annular calcification and mild tricuspid regurgitation with no other valvular pathology. He was recommended to undergo heart catheterization which demonstrated left main disease with 95% distal stenosis at the bifurcation, proximal LAD stenosis 95% extending from the left main, ostial circumflex stenosis 99%, obtuse marginal branch with 80-90% stenosis, and proximal RCA stenosis 99%. LV gram demonstrated normal LV size with ejection fraction 50%, no gradient across the aortic valve and no mitral regurgitation. Urgent consultation was placed for Dr. Cast from cardiothoracic surgery . He was recommended to undergo urgent coronary artery bypass graft surgery. The usual perioperative course was discussed in detail with the patient and his family, all risks and benefits were explained, all questions were answered, and consent was obtained to proceed with surgery. The patient was kept inpatient due to the nature of his disease process. Prior to performing surgery the patient was noted to have leukopenia and anemia. Consultation was placed to hematology with recommendation for bone marrow biopsy, however due to the urgent nature of the patient's disease and the length of time to get results of biopsy, it was recommended to proceed with surgery with hematology following. He was given 1 unit packed red blood cells prior to surgery. HOSPITAL COURSE: The patient was taken to the preoperative area on 11/20/18 , prepared in the usual fashion, and subsequently taken to the operating room where Dr. Gaspar performed urgent off-pump coronary artery bypass graft 3 with left internal mammary artery to the proximal left anterior descending artery, reverse saphenous vein graft to the obtuse marginal, reverse saphenous vein graft to the posterior descending coronary artery, endovascular vein harvest, intraoperative transesophageal echocardiogram by anesthesia, and sternal bone marrow biopsy. Upon completion of surgery the patient was transferred to the cardiovascular intensive care unit where he was recovered, monitored hemodynamically, and where he progressed to cardiac rehabilitation phase 1. He was extubated, all lines, tubes, and drips were discontinued when appropriate, and he was transferred to 3 S cardiac stepdown unit for further monitoring and rehabilitation. His oxygen was titrated down, he continued to work with physical and occupational therapy, he was tolerating oral diet, his pain was controlled, and he was ready to be discharged to home with [facility] on postoperative day #4. He received written and verbal instruction regarding his medications, activity restrictions, signs and symptoms requiring physician notification, and follow-up appointments. COMPLICATIONS: The patient experienced no postoperative complications. Patient Condition at Discharge: Fair Plan - Discharge Summary Discharge Rx Participant: No New Discharge Prescriptions: New Aspirin 325 mg PO DAILY #30 tab Atorvastatin [Lipitor] 40 mg PO DAILY #30 tab Clopidogrel [Plavix] 75 mg PO DAILY #30 tab Ferrous Sulfate [Iron (65 MG Elemental)] 325 mg PO BID-W/MEALS #60 tab Folic Acid-Vit B Complex-Vit C [Nephrocaps] 1 each PO DAILY #30 cap HYDROcodone/APAP 5-325MG [Gallaway 5-325] 1 each PO Q6HR PRN #30 tab PRN Reason: Moderate Pain Metoprolol Tartrate [Lopressor] 25 mg PO BID #60 tab Pantoprazole [Protonix] 40 mg PO AC-BRKFST #[address] tablet[address] Shahid-Docusate Sodium [Senokot-S] 2 each PO HS #14 tab Discontinued Losartan/Hydrochlorothiazide [Losartan-Hctz 100-12.5 mg Tab] 1 tab PO DAILY Discharge Medication List Aspirin 325 mg PO DAILY #30 tab 11/24/18 [Rx] Atorvastatin [Lipitor] 40 mg PO DAILY #30 tab 11/24/18 [Rx] Clopidogrel [Plavix] 75 mg PO DAILY #30 tab 11/24/18 [Rx] Ferrous Sulfate [Iron (65 MG Elemental)] 325 mg PO BID-W/MEALS #60 tab 11/24/18 [Rx] Folic Acid-Vit B Complex-Vit C [Nephrocaps] 1 each PO DAILY #30 cap 11/24/18 [Rx ] HYDROcodone/APAP 5-325MG [Gallaway 5-325] 1 each PO Q6HR PRN #30 tab 11/24/18 [Rx] Metoprolol Tartrate [Lopressor] 25 mg PO BID #60 tab 11/24/18 [Rx] Pantoprazole [Protonix] 40 mg PO AC-BRKFST #30 tablet. 11/24/18 [Rx] Sennosides-Docusate Sodium [Senokot-S] 2 each PO HS #14 tab 11/24/18 [Rx] Follow up Appointment(s)/Referral(s): Harsha Dominguez MD [STAFF PHYSICIAN] - 12/02/18 2:00 pm Preston Gaspar MD [STAFF PHYSICIAN] - 12/24/18 1:15 pm [facility], [NON-STAFF] - Cecil Perla MD [STAFF PHYSICIAN] - 12/14/18 10:30 am () Cherri Land DO [Primary Care Provider] - 12/01/18 3:15 pm (Earliest available appointment.) Aubrey Hassan MD [STAFF PHYSICIAN] - 2 Weeks (Please call to make appointment) Ambulatory/Diagnostic Orders: Complete Blood Count w/diff [LAB.AMB] Time Frame: 3 Days, Location: None Selected Comprehensive Metabolic Panel [LAB.AMB] Time Frame: 3 Days, Location: None Selected Patient Instructions/Handouts: Fluid Restriction (DC), Coronary Artery Bypass Graft (DC) Activity/Diet/Wound Care/Special Instructions: DISCHARGE INSTRUCTIONS: 1. No driving for 4 weeks, or until physician gives their ok. 2. The patient should sleep in their own bed, no medical bed needed. 3. Stairs are not an issue. If the bedroom is upstairs, it is advised that the patient go up at night and down in the morning for the first week. Go slowly, using handrail and take 1 step at a time. 4. BARTOLO hose are to be worn for 30 days or until physician discontinues. 5. Heart hugger is to be worn 100% of the time until physician discontinues.( except when showering) 6. No lifting, pushing, or pulling more than 10 pounds for 12 weeks. The physician will advise of any restriction changes. 7. The patient is expected to continue the prescribed walking program. 8. Continue pain control per as needed orders. 9. Continue with incentive spirometry and splinting/heart hugger until otherwise directed by the physician. 10. Must shower daily using liquid antibacterial soap and a separate white washcloth for each individual incision. 11. Routine sternal incision care. No powders, lotions, ointments on incisions. 12. Please call surgeon/SENIOR INFORMATICA ETL DEVELOPER for temp greater than 101 F or purulent drainage from incisions. 13. Narcotic medications were discussed with the patient, including the potential for misuse, addiction, and abuse. Opiod Start Talking form was reviewed with the patient. 14. All prescriptions given by surgeon for 30 days. Refills need to be filled through machine cell tuber/primary care physician. 15. A Red armband has been placed on the patient. It should be worn for 30 days post surgery and will be removed by the cardiac surgeons. If an ER visit is necessary, please make sure the number on the Red armband is called. HOME HEALTH SERVICES TO PROVIDE: RN SKILLED HOME CARE SERVICES FOR POST-OP SURGICAL PATIENTS WITH THE FOLLOWING: Coronary Artery Bypass Surgery (CABG), Mitral Valve Replacement/ Repair ( MVR), Aortic Valve Replacement/Repair (AVR) RN TO CONTINUE EDUCATION FROM ``ROAD TO A HEALTH HEART PATIENT EDUCATION MANUAL (GIVEN TO PATIENT IN THE HOSPITAL) MEDICATION RECONCILIATION WITH EDUCATION NEEDED ON FIRST HOME VISIT EMPHASIZE IMPORTANCE OF WEARING BREAST SUPPORT/HEART HUGGER ENCOURAGE USE OF INCENTIVE SPIROMETER 10 X EVERY HOUR WHILE AWAKE ENCOURAGE UTILIZATION OF LOWER EXTREMITY COMPRESSION STOCKINGS/BARTOLO HOSE and ELEVATE LEGS ABOVE LEVEL OF HEART WHILE AT REST. ENCOURAGE AMBULATION 3-5x/day INCREASING TOLERATES, WHILE AVOID EXTREMES IN TEMPERATURE FREQUENCY: RN TO OPEN THE PATIENT WITHIN 24 HOURS OF DISCHARGE FROM THE HOSPITAL WITH TELEHEALTH [place]STALL[place] [facility] [place] TO VISIT 2-3 X A WEEK FOR 4 WEEKS ESTABLISHED BY PATIENT NEEDS. LABORATORY: CBC, CMP TO BE DRAWN ON THE THIRD DAY HOME, (RAN STAT) FAX RESULTS TO [phone]. TELEHEALTH PARAMETERS: WEIGHT: NOTIFY MD OF WEIGHT GAIN OF 2 LBS IN 24 HOURS OR 5 LBS IN ONE WEEK HR: NOTIFY MD OF HR <55 BPM OR HR>100 BPM BP: NOTIFY MD IF BP <90/55 OR BP>140/100 O2 SAT: NOTIFY MD IF PO2<93% ON ROOM AIR SEND TELEHEALTH REPORT TO TRIM SETTER HELPER AND CARDIOVASCULAR SURGEON THE FIRST WEEK OF CARE AND THEN BI-WEEKLY. PLEASE ADDITIONALLY COMMUNICATE ANY ABNORMALS AND NEW FINDINGS TO THE SURGEONS OFFICE. Discharge Disposition: HOME WITH HOME HEALTH SERVICES
--- NOTE | 2018-11-24 15:18 | PN ---
PROGRESS NOTE Mr. Acosta is a 58-year-old male who presented with non ST-segment elevation myocardial infarction, underwent coronary bypass grafting because of severe triple-vessel coronary disease. He is doing well this morning. Ambulating without difficulty. Denying any chest pain. No dizziness. No palpitation. Denies any nausea. He continues to be on aspirin once a day, Lipitor 40 mg daily, Plavix 75 mg daily, metoprolol tartrate 25 mg twice a day. PHYSICAL EXAMINATION: Blood pressure running in the 120s with a heart rate in the 70s. LUNGS: No wheezes. HEART: Regular rate and rhythm, S1, S2. No S3. No rub. ABDOMEN: Soft, nontender. EXTREMITIES: No edema. LAB DATA: Revealed BUN and creatinine 14 and 0.66, potassium 4.1, white blood cell of 2.7, hemoglobin of 6.9, platelet count 262. IMPRESSION: 1. Status post coronary artery bypass grafting. 2. Severe triple-vessel coronary artery disease. 3. Bicytopenia, etiology unclear. Workup in progress. Patient has underwent a sternal biopsy and the results are pending. 4. Prior history of smoking. RECOMMENDATION: From the cardiac standpoint, he is stable. He should be able to be discharged home today and follow as an outpatient. He will follow with Dr. Hassan as an outpatient in regard to his bicytopenia. MMEMILIEL / TOSINN: [id number] /
--- NOTE | 2018-11-25 10:16 | P.VSCSTY ---
Greater Saphenous Vein Mapping This is bilateral lower extremity greater saphenous vein mapping. Date of service 11/17/2018 Vein quality and ultrasound appearance no obvious intraluminal thrombus. There appears to be thickening in the wall of the left greater saphenous vein. Calf and lower leg on the left is too small to utilize Vein size groin right 6.1 x 7.3 groin left 5.0 x 5.7 High thigh right 5.4 x 5.9 high thigh left 4.2 x 4.8 Mid thigh right 3.2 x 4.4 mid thigh left 3.2 x 4.2 Above-knee right 4.1 x 5.4 above- knee left to 2.6 x 3.2 Below knee right 3.0 x 3.6 below-knee left 2.8 x 3.5 Mid calf right 1.8 x 2.1 mid calf left [] Ankle right 1.1 x 1.3 ankle left [] Impression usable greater saphenous vein from below the knee on the right through the groin. There may be some usable vein on the left leg but there is significant concern about the wall thickening. This suggests a possibly postphlebitic vein. Clinical correlation recommended..
== END 2018-11-24 14:54 | disposition home health service (06) | DRG 234 ==
LOC: EC 14:07 → 3SCARD 15:42 → 2SICU 11-17 14:20 → 3SCARD 11-22 14:31
PROVIDERS: ADMIT Thoracic Surgery (Cardiothoracic Vascular Surgery); ATTEND Thoracic Surgery (Cardiothoracic Vascular Surgery)
PROC: 4A023N7 Measurement of Cardiac Sampling and Pressure, Left Heart, Percutaneous Approach (ICD-10-PCS; 2018-11-17)
PROC: B2111ZZ Fluoroscopy of Multiple Coronary Arteries using Low Osmolar Contrast (ICD-10-PCS; 2018-11-17)
PROC: B2151ZZ Fluoroscopy of Left Heart using Low Osmolar Contrast (ICD-10-PCS; 2018-11-17)
PROC: 021109W Bypass Coronary Artery, Two Arteries from Aorta with Autologous Venous Tissue, Open Approach (ICD-10-PCS; 2018-11-20)
PROC: 06BP4ZZ Excision of Right Saphenous Vein, Percutaneous Endoscopic Approach (ICD-10-PCS; 2018-11-20)
PROC: B246ZZ4 Ultrasonography of Right and Left Heart, Transesophageal (ICD-10-PCS; 2018-11-20)
PROC: 07DQ0ZX Extraction of Sternum Bone Marrow, Open Approach, Diagnostic (ICD-10-PCS; 2018-11-20)
PROC: 30233N1 Transfusion of Nonautologous Red Blood Cells into Peripheral Vein, Percutaneous Approach (ICD-10-PCS; 2018-11-20)
PROC: 02100Z9 Bypass Coronary Artery, One Artery from Left Internal Mammary, Open Approach (ICD-10-PCS; principal; 2018-11-20 10:20)
DX: I21.4 Non-ST elevation (NSTEMI) myocardial infarction (principal); D61.818 Other pancytopenia; J98.11 Atelectasis; D62 Acute posthemorrhagic anemia; K70.9 Alcoholic liver disease, unspecified; I07.1 Rheumatic tricuspid insufficiency; F10.20 Alcohol dependence, uncomplicated; E61.1 Iron deficiency; E78.5 Hyperlipidemia, unspecified; I25.10 Atherosclerotic heart disease of native coronary artery without angina pectoris; I10 Essential (primary) hypertension; I49.3 Ventricular premature depolarization; F17.210 Nicotine dependence, cigarettes, uncomplicated; Z71.6 Tobacco abuse counseling; Z79.899 Other long term (current) drug therapy; Z98.42 Cataract extraction status, left eye; Z98.41 Cataract extraction status, right eye; Z96.1 Presence of intraocular lens; Z98.52 Vasectomy status; Z82.5 Family history of asthma and other chronic lower respiratory diseases; Z82.49 Family history of ischemic heart disease and other diseases of the circulatory system
CPT/HCPCS: 71045; 71046; 76700; 80048; 80053; 80061; 80074; 81001; 82272; 82330; 82550; 82553; 82607; 82728; 82747; 82805; 83036; 83540; 83550; 83735; 83883; 83921; 84100; 84165; 84443; 84484; 85025; 85027; 85045; 85520; 85610; 85730; 86038; 86334; 86431; 86850; 86891; 86900; 86901; 86920; 87070; 87086; 87390; 93005; 93306; 93458; 93880; 93970; 94002; 94003; 94640; 94760; 96365; 96366; 99285